=== PATIENT | female | born 1965 | race Caucasian/White ===

== ENCOUNTER → 2018-02-07 00:56 | Outpatient (CLI) | payer MEDICARE, MEDICAID, SELFPAY ==
--- NOTE | 2018-02-07 10:52 | DI.REPORT_ITS ---
SYMPTOMS/DIAGNOSIS: SCREENING, Z12.31 MAMMOGRAM: Mammograms were interpreted according to the usual protocol including computer analysis with CAD system, tomosynthesis and C view imaging. The breasts are of moderate density with fairly symmetrical distribution of fibroglandular tissue. No dominant mass or clumped microcalcification is identified in either breast. Current examination is compared with the previous examinations including March 2016 and there has been no gross interval change in appearance in comparison with the previous studies. CONCLUSION: No specific evidence of malignancy at this time. Routine screening examinations are suggested at yearly intervals in this age group according to the ACS/ACR guidelines. Category 1, breast density category B. MQSA ASSESSMENT OF FINDINGS: Negative. Category 1. Patient will receive a letter notifying them of these results. BI-RADS category B. There are scattered areas of fibroglandular density.
== END ==
PROVIDERS: PCP Internal Medicine; Visit Provider Internal Medicine
DX: Z12.31 Encounter for screening mammogram for malignant neoplasm of breast (principal)
CPT/HCPCS: 77063; 77067

== ENCOUNTER → 2018-02-11 09:49 | Outpatient (CLI) | payer MEDICARE, MEDICAID, SELFPAY ==
--- NOTE | 2018-02-11 09:48 | DI.REPORT_ITS ---
SYMPTOM/DIAGNOSIS: ACUTE PAIN RT SHOULDER M25.511. FELL ON RT SHOULDER, R/O FX RIGHT SCAPULA: No fracture or dislocation is seen. There is spurring at the A-C joint. There are mild glenohumeral joint degenerative changes. IMPRESSION: No acute abnormality.
== END ==
PROVIDERS: PCP Internal Medicine; Visit Provider Family Medicine
DX: M25.511 Pain in right shoulder (principal); M19.011 Primary osteoarthritis, right shoulder; W19.XXXA Unspecified fall, initial encounter
CPT/HCPCS: 73010

== ENCOUNTER 2018-07-25 08:36 | Outpatient (CLI) | payer MEDICARE, MEDICAID, SELFPAY ==
[2018-07-25 09:13] LABS: HCT 42.8 % (36.0-46.0); HGB 13.7 g/dL (12.0-15.5); Mean Corpuscular Hemoglobin 26.3 pg (27.0-33.0); Mean Corpuscular Volume 82.1 fL (80-95); Mean Platelet Volume 11.3 fL (8.0-11.0); Platelet Count 343 x1000/uL (130-400); RBC 5.21 m/cumm (4.00-5.20); White Blood Cell Count 4.64 k/cumm (4.4-10.8)
[2018-07-25 11:14] LABS: ALT 41 U/L (12-78); AST 37 U/L (15-37); Albumin 3.6 g/dL (3.4-5.0); Alkaline Phosphatase 165 U/L (46-116); Anion Gap 8.3 mmol/L (3-11); BUN 13 mg/dL (7-18); Bilirubin, Total 0.9 mg/dL (0.2-1.0); CO2 30.7 mmol/L (21.0-32.0); CREATININE 0.74 mg/dL (0.55-1.02); Calcium 9.3 mg/dL (8.5-10.1); Chloride 103 mmol/L (98-107); Cholesterol 210 mg/dL (50-200); Glucose 105 mg/dL (70-100); HDL Cholesterol 66 mg/dL (40-60); LDL CHOLESTEROL 130 mg/dL (<100); Potassium 4.3 mmol/L (3.5-5.1); Sodium 142 mmol/L (136-145); TSH 2.19 uIU/mL (0.358-3.74); Total Protein 7.7 g/dL (6.4-8.2); Triglyceride 39 mg/dL (30-150)
== END 2018-07-25 08:56 ==
PROVIDERS: PCP Internal Medicine; Visit Provider Internal Medicine
DX: K74.69 Other cirrhosis of liver (principal); R63.5 Abnormal weight gain; E78.00 Pure hypercholesterolemia, unspecified
CPT/HCPCS: 36415; 80053; 80061; 83721; 85027; 84443

== ENCOUNTER 2018-07-28 09:41 | Emergency (ER) | payer MEDICARE, MEDICAID, SELFPAY ==
[2018-07-28 09:45] VITALS: BP 95/54; PULSE 58; RESP 16; TEMP 36.6; O2SAT 97
--- NOTE | 2018-07-28 10:12 | W.ED.GENAD ---
Discharge Plan Disposition Patient Disposition: HOME Condition: Improving Discharge Details Chief Complaint: Laceration Clinical Impression: Laceration of hand, right Primary Care Provider: Kelley Macias ED Provider: Aramis Bosch Home Meds and New Rx's Prescriptions: Continued eeyqushd-ajh-tchhl-[id number] [Sfmgls-Ldijv-NNP (with antiox)] 500-500-66.7 mg tablet PO RF: 0 junaid.stocking,thigh,reg,med misc .ROUTE .MEDSUPPLY Qty: 2 RF: 0 compress.stocking,knee,reg,med misc .ROUTE .MEDSUPPLY Qty: 4 RF: 0 omega-3 fatty acids [Super [place]-3] 1,000 mg capsule 1,000 mg PO BID RF: 0 multivitamin [Daily Multi-Vitamin] 1 EACH tablet 1 ea PO DAILY RF: 0 folic acid 1 MG tablet 1 mg PO DAILY RF: 0 biotin 5 MG tablet 5 mg PO DAILY RF: 0 lysine 1,000 MG tablet 1,000 mg PO DAILY Qty: 90 RF: 3 furosemide 40 MG tablet 40 mg PO DAILY Qty: 90 RF: 1 Dg-Q3-rgb-yunn-bpm-bhec-bor 1 EACH tablet 1 ea PO TID RF: 0 Deana Protect 57 GM cream 1 applic Topical TID PRNQty: 57 RF: 3 Compression Stckings 1 pack Miscellaneous DAILY PRNQty: 2 RF: 3 spironolactone 50 MG tablet 50 mg PO DAILY Qty: 90 RF: 3 ascorbic acid (vitamin C) [Vitamin C] 1,000 MG tablet 1,000 mg PO DAILY Qty: 2 RF: 0 propranolol 10 MG tablet 10 mg PO BID Qty: 180 RF: 3 omeprazole 20 MG capsule,delayed release(DR/EC) 20 mg PO DAILY Qty: 90 RF: 3 coenzyme Q10 [CoQ-10] 100 mg capsule 100 mg PO DAILY RF: 0 aspirin 81 MG tablet,chewable 81 mg PO DAILY RF: 0 Discharge Instructions Instructions: Laceration (ED) Additional Instructions: Sutures removed in 7-10 days time. Return or see your primary care physician. Return if you develop fever, redness, swelling, discharge from the wound or any other acute concerns. Continue your regular medications Medical Decision Making 53-year-old female with right hand laceration at home. No numbness, tingling or weakness. Examined in a bloodless field without evidence of foreign body. Anesthetized, irrigated, repaired with simple interrupted sutures. HPI General Mode of arrival: ambulatory. Date/Time Provider Initiated Documentation: 07/28/18 09:56. Limitations to Documentation: no limitations. Information obtained by: patient. History of Present Illness 53 year old F presents to the emergency department with the chief complaint of Right hand laceration, no numbness or tingling, tetanus up to date, described as moderate, Quality is described as dull and constant, and is localized to the right and upper extremity. Patient reports no radiation. Patient started experiencing this minute(s) and it has been constant. No relieving factors improve symptom(s), No exacerbating factors reported . Patient notes no other symptoms.. Patient did receive the following treatments prior to arrival, none Related Data Home Medications Medication Instructions Recorded Confirmed aspirin 81 mg PO DAILY 11/17/14 07/28/18 biotin 5 mg PO DAILY 09/19/16 07/28/18 folic acid 1 mg PO DAILY tab 09/19/16 07/28/18 furosemide 40 mg PO DAILY #90 tab-cap 09/19/16 07/28/18 lysine 1,000 mg PO DAILY #90 tab 09/19/16 07/28/18 multivitamin [Daily Multi-Vitamin] 1 ea PO DAILY 09/19/16 07/28/18 Vj-N1-vnq-exxv-iwp-ucuc-bor 1 ea PO TID 09/28/16 07/28/18 Deana Protect 1 applic TOPICAL TID PRN #57 gm 12/04/16 07/28/18 spironolactone 50 mg PO DAILY #90 tab-cap 09/21/17 07/28/18 ascorbic acid (vitamin C) [Vitamin 1,000 mg PO DAILY #2 09/25/17 07/28/18 C] omeprazole 20 mg PO DAILY #90 tab-cap 01/07/18 07/28/18 propranolol 10 mg PO BID #180 tab 01/07/18 07/28/18 ujgxpqucger-bra-ztbnauncb-hrb tab PO tab 03/25/18 07/23/18 149-hyalur 500 mg-500 mg-66.7 mg tablet coenzyme Q10 100 mg capsule 100 mg PO DAILY 04/08/18 07/28/18 compression stocking, knee #4 each 07/10/18 07/23/18 high,regular length,medium compression stocking,thigh #2 each 07/10/18 07/23/18 high,regular length,medium circumference omega-3 fatty acids 1,000 mg 1,000 mg PO BID cap 07/23/18 07/28/18 capsule Previous Rx's Medication Instructions Recorded spironolactone 50 mg PO DAILY #90 tab-cap 09/21/17 omeprazole 20 mg PO DAILY #90 tab-cap 01/07/18 propranolol 10 mg PO BID #180 tab 01/07/18 compression stocking, knee #4 each 07/10/18 high,regular length,medium compression stocking,thigh #2 each 07/10/18 high,regular length,medium circumference Allergies Allergy/AdvReac Type Severity Reaction Status Date / Time ciprofloxacin Allergy Intermediate Itching Verified 07/28/18 09:52 General Stated Complaint: Laceration KILLIAN: 4 Review of Systems Review of Systems 6 systems reviewed and otherwise - [facility] Surgical History Colonoscopy - MAC (~08/2013) EGD - IV Sedation (04/19/15) Endoscopy (12/06/12) Tonsillectomy Upper GI endoscopy w/ bx (11/28/16) Family History Mother Leukemia Father Essential hypertension Melanoma Brother Essential hypertension Social History housing: apartment Smoking/Tobacco Use Status: Never alcohol intake: never substance use type: does not use Exam Narrative Exam Narrative: GEN: awake, alert, oriented 3. Pleasant, well groomed, interactive. HEAD: Normocephalic, atraumatic ENT: Mucous membranes moist, oropharynx unremarkable, External ear exam unremarkable EXT: Full ROM, no edema, no rash. Dorsum of right hand with lateral superficial laceration that does penetrate into the subcutaneous fat, no exposed bone or ligament. Distal sensation is normal, range of motion intact with motor graded 5 out of Neuro: Grossly normal neurologic exam, conversant, interactive. Psych: Speech fluent, thoughts congruent, affect normal Course Vital Signs Temperature 36.6 C 07/28/18 09:45 Pulse 58 L 07/28/18 09:45 Respiratory Rate 16 07/28/18 09:45 Blood Pressure 95/54 L 07/28/18 09:45 Pulse Oximetry 97 07/28/18 09:45 Temperature 36.6 C 07/28/18 09:45 Temperature Source Skin 07/28/18 09:45 Pulse 58 L 07/28/18 09:45 Respiratory Rate 16 07/28/18 09:45 Respiratory Effort 07/28/18 09:55 Blood Pressure 95/54 L 07/28/18 09:45 Blood Pressure Position Sitting 07/28/18 09:45 Pulse Oximetry 97 07/28/18 09:45 Oxygen Delivery Method Room Air 07/28/18 09:45 Oxygen Flow Rate 0 07/28/18 09:45 Pain Level 0 07/28/18 09:45 Procedures Laceration Laceration 1: Site: upper extremity and hand Side (If applicable): right Size (cm): 4 Description: linear Depth: simple, single layer Local Anesthetic: Lidocaine 1% Amount of anesthesia used (mL): 2 Pre-repair: wound explored, irrigated extensively and deep structures intact Skin layer closed with: nylon Size (cm): 4-0 Number of sutures: 5 Technique: simple, interrupted
--- NOTE | 2018-07-28 10:16 | ED.GENADUL_ITS ---
Discharge Plan Disposition Patient Disposition: HOME Condition: Improving Discharge Details Chief Complaint: Laceration Clinical Impression: Laceration of hand, right Primary Care Provider: Kelley Macias ED Provider: Aramis Bosch Home Meds and New Rx's Prescriptions: Continued ulrggyqm-fce-rjvsl-wbr757-sulw [Sjtcop-Zqulh-WXW (with antiox)] 500-500-66.7 mg tablet PO RF: 0 junaid.stocking,thigh,reg,med misc .ROUTE .MEDSUPPLY Qty: 2 RF: 0 compress.stocking,knee,reg,med misc .ROUTE .MEDSUPPLY Qty: 4 RF: 0 omega-3 fatty acids [Super [place]-3] 1,000 mg capsule 1,000 mg PO BID RF: 0 multivitamin [Daily Multi-Vitamin] 1 EACH tablet 1 ea PO DAILY RF: 0 folic acid 1 MG tablet 1 mg PO DAILY RF: 0 biotin 5 MG tablet 5 mg PO DAILY RF: 0 lysine 1,000 MG tablet 1,000 mg PO DAILY Qty: 90 RF: 3 furosemide 40 MG tablet 40 mg PO DAILY Qty: 90 RF: 1 Rs-E4-qar-vdku-tzn-vjtk-bor 1 EACH tablet 1 ea PO TID RF: 0 Deana Protect 57 GM cream 1 applic Topical TID PRNQty: 57 RF: 3 Compression Stckings 1 pack Miscellaneous DAILY PRNQty: 2 RF: 3 spironolactone 50 MG tablet 50 mg PO DAILY Qty: 90 RF: 3 ascorbic acid (vitamin C) [Vitamin C] 1,000 MG tablet 1,000 mg PO DAILY Qty: 2 RF: 0 propranolol 10 MG tablet 10 mg PO BID Qty: 180 RF: 3 omeprazole 20 MG capsule,delayed release(DR/EC) 20 mg PO DAILY Qty: 90 RF: 3 coenzyme Q10 [CoQ-10] 100 mg capsule 100 mg PO DAILY RF: 0 aspirin 81 MG tablet,chewable 81 mg PO DAILY RF: 0 Discharge Instructions Instructions: Laceration (ED) Additional Instructions: Sutures removed in 7-10 days time. Return or see your primary care physician. Return if you develop fever, redness, swelling, discharge from the wound or any other acute concerns. Continue your regular medications Medical Decision Making 53-year-old female with right hand laceration at home. No numbness, tingling or weakness. Examined in a bloodless field without evidence of foreign body. Anesthetized, irrigated, repaired with simple interrupted sutures. HPI General Mode of arrival: ambulatory . Date/Time Provider Initiated Documentation: 07/28/18 09:56 . Limitations to Documentation: no limitations . Information obtained by: patient . History of Present Illness 53 year old F presents to the emergency department with the chief complaint of Right hand laceration, no numbness or tingling, tetanus up to date, described as moderate, Quality is described as dull and constant, and is localized to the right and upper extremity. Patient reports no radiation. Patient started experiencing this minute(s) and it has been constant. No relieving factors improve symptom(s), No exacerbating factors reported . Patient notes no other symptoms.. Patient did receive the following treatments prior to arrival, none Related Data Home Medications Medication Instructions Recorded Confirmed aspirin 81 mg PO DAILY 11/17/14 07/28/18 biotin 5 mg PO DAILY 09/19/16 07/28/18 folic acid 1 mg PO DAILY tab 09/19/16 07/28/18 furosemide 40 mg PO DAILY #90 tab-cap 09/19/16 07/28/18 lysine 1,000 mg PO DAILY #90 tab 09/19/16 07/28/18 multivitamin [Daily Multi-Vitamin] 1 ea PO DAILY 09/19/16 07/28/18 Ne-F1-fwu-yowm-qys-fajt-bor 1 ea PO TID 09/28/16 07/28/18 Deana Protect 1 applic TOPICAL TID PRN #57 gm 12/04/16 07/28/18 spironolactone 50 mg PO DAILY #90 tab-cap 09/21/17 07/28/18 ascorbic acid (vitamin C) [Vitamin 1,000 mg PO DAILY #2 09/25/17 07/28/18 C] omeprazole 20 mg PO DAILY #90 tab-cap 01/07/18 07/28/18 propranolol 10 mg PO BID #180 tab 01/07/18 07/28/18 qgmunziqygl-chk-giyfjyyls-hrb tab PO tab 03/25/18 07/23/18 149-hyalur 500 mg-500 mg-66.7 mg tablet coenzyme Q10 100 mg capsule 100 mg PO DAILY 04/08/18 07/28/18 compression stocking, knee #4 each 07/10/18 07/23/18 high,regular length,medium compression stocking,thigh #2 each 07/10/18 07/23/18 high,regular length,medium circumference omega-3 fatty acids 1,000 mg 1,000 mg PO BID cap 07/23/18 07/28/18 capsule Previous Rx's Medication Instructions Recorded spironolactone 50 mg PO DAILY #90 tab-cap 09/21/17 omeprazole 20 mg PO DAILY #90 tab-cap 01/07/18 propranolol 10 mg PO BID #180 tab 01/07/18 compression stocking, knee #4 each 07/10/18 high,regular length,medium compression stocking,thigh #2 each 07/10/18 high,regular length,medium circumference Allergies Allergy/AdvReac Type Severity Reaction Status Date / Time ciprofloxacin Allergy Intermediate Itching Verified 07/28/18 09:52 General Stated Complaint: Laceration KILLIAN: 4 Review of Systems Review of Systems 6 systems reviewed and otherwise - [facility] Surgical History Colonoscopy - MAC (~08/2013) EGD - IV Sedation (04/19/15) Endoscopy (12/06/12) Tonsillectomy Upper GI endoscopy w/ bx (11/28/16) Family History Mother Leukemia Father Essential hypertension Melanoma Brother Essential hypertension Social History housing: apartment Smoking/Tobacco Use Status: Never alcohol intake: never substance use type: does not use Exam Narrative Exam Narrative: GEN: awake, alert, oriented 3. Pleasant, well groomed, interactive. HEAD: Normocephalic, atraumatic ENT: Mucous membranes moist, oropharynx unremarkable, External ear exam unremarkable EXT: Full ROM, no edema, no rash. Dorsum of right hand with lateral superficial laceration that does penetrate into the subcutaneous fat, no exposed bone or ligament. Distal sensation is normal, range of motion intact with motor graded 5 out of Neuro: Grossly normal neurologic exam, conversant, interactive. Psych: Speech fluent, thoughts congruent, affect normal Course Vital Signs Temperature 36.6 C 07/28/18 09:45 Pulse 58 L 07/28/18 09:45 Respiratory Rate 16 07/28/18 09:45 Blood Pressure 95/54 L 07/28/18 09:45 Pulse Oximetry 97 07/28/18 09:45 Temperature 36.6 C 07/28/18 09:45 Temperature Source Skin 07/28/18 09:45 Pulse 58 L 07/28/18 09:45 Respiratory Rate 16 07/28/18 09:45 Respiratory Effort 07/28/18 09:55 Blood Pressure 95/54 L 07/28/18 09:45 Blood Pressure Position Sitting 07/28/18 09:45 Pulse Oximetry 97 07/28/18 09:45 Oxygen Delivery Method Room Air 07/28/18 09:45 Oxygen Flow Rate 0 07/28/18 09:45 Pain Level 0 07/28/18 09:45 Procedures Laceration Laceration 1: Site: upper extremity and hand Side (If applicable): right Size (cm): 4 Description: linear Depth: simple, single layer Local Anesthetic: Lidocaine 1% Amount of anesthesia used (mL): 2 Pre-repair: wound explored, irrigated extensively and deep structures intact Skin layer closed with: nylon Size (cm): 4-0 Number of sutures: 5 Technique: simple, interrupted
[2018-07-28 10:26] VITALS: BP 95/54; PULSE 58; RESP 16; TEMP 36.6; O2SAT 97
--- NOTE | 2018-07-28 10:27 | NUR.NOTE ---
er doctor in and placed 5 sutures in right hand pt up in rm talking and walking around pms X 4 and good cap refill in right fingers Nursing Note:
== END 2018-07-28 10:25 | disposition home or self-care (01) ==
PROVIDERS: Emergency Provider Emergency Medicine; PCP Internal Medicine
DX: S61.411A Laceration without foreign body of right hand, initial encounter (principal); W22.8XXA Striking against or struck by other objects, initial encounter
CPT/HCPCS: 12002

== ENCOUNTER 2018-08-08 15:21 | Emergency (ER) | payer MEDICARE, MEDICAID, SELFPAY ==
[2018-08-08 15:25] VITALS: BP 128/48; PULSE 72; RESP 16; TEMP 36.3; O2SAT 95
--- NOTE | 2018-08-08 15:43 | W.ED.GENAD ---
Discharge Plan Disposition Patient Disposition: HOME Condition: Good Discharge Details Chief Complaint: SutureRem Clinical Impression: Suture check Primary Care Provider: Kelley Macias ED Provider: Davis Araujo Home Meds and New Rx's Prescriptions: No Action ghffenqu-sra-vumbw-pph573-guvn [Fmmoaf-Uoprl-RVL (with antiox)] 500-500-66.7 mg tablet PO RF: 0 junaid.stocking,thigh,reg,med misc .ROUTE .MEDSUPPLY Qty: 2 RF: 0 compress.stocking,knee,reg,med misc .ROUTE .MEDSUPPLY Qty: 4 RF: 0 omega-3 fatty acids [Super [place]-3] 1,000 mg capsule 1,000 mg PO BID RF: 0 multivitamin [Daily Multi-Vitamin] 1 EACH tablet 1 ea PO DAILY RF: 0 folic acid 1 MG tablet 1 mg PO DAILY RF: 0 biotin 5 MG tablet 5 mg PO DAILY RF: 0 lysine 1,000 MG tablet 1,000 mg PO DAILY Qty: 90 RF: 3 furosemide 40 MG tablet 40 mg PO DAILY Qty: 90 RF: 1 Al-C7-jbt-jufo-flj-cboh-bor 1 EACH tablet 1 ea PO TID RF: 0 Deana Protect 57 GM cream 1 applic Topical TID PRNQty: 57 RF: 3 Compression Stckings 1 pack Miscellaneous DAILY PRNQty: 2 RF: 3 spironolactone 50 MG tablet 50 mg PO DAILY Qty: 90 RF: 3 ascorbic acid (vitamin C) [Vitamin C] 1,000 MG tablet 1,000 mg PO DAILY Qty: 2 RF: 0 propranolol 10 MG tablet 10 mg PO BID Qty: 180 RF: 3 omeprazole 20 MG capsule,delayed release(DR/EC) 20 mg PO DAILY Qty: 90 RF: 3 coenzyme Q10 [CoQ-10] 100 mg capsule 100 mg PO DAILY RF: 0 lactulose 10 gram/15 mL solution 20 gm PO BID Qty: 189 RF: 11 aspirin 81 MG tablet,chewable 81 mg PO DAILY RF: 0 Discharge Instructions Instructions: Care For Your Stitches (ED) Additional Instructions: Please return in the next 2-3 days for reevaluation of your sutures for potential removal. Do not directly soak the area. Watch for any signs of infection and return if any increasing redness, swelling, pain, drainage. If you notice any worsening of your symptoms, or any new symptoms such as vomiting, diarrhea, fever, chills, shortness of breath, chest pain, numbness, weakness, or fainting , please return immediately to the emergency department for reevaluation. Please follow up with your primary care provider as soon as possible for reassessment and reevaluation. As always, it was a pleasure participating in your medical care today. Referrals: Kelley Macias MD [Primary Care Provider] - Medical Decision Making This is a very pleasant 53-year-old female who presents today for evaluation of suture removal on her right hand. She got the sutures roughly 10-11 days ago. She has no history of diabetes but does have history of obesity, hypertension. Physical exam demonstrates no signs of dehiscence or infection however the patient does have slight incomplete wound healing. Because of the location of the sutures over the knuckle itself, and concern for removal of the sutures at this time. I do think that they would benefit from 2-3 more days of healing prior to removal. I discussed this with the patient and they understand my hesitation and agree. Patient will be discharged with close follow-up in the next 48-72 hours for potential reevaluation removal of the sutures. I have extensively reviewed the treatment plan and discharge instructions with the patient. I have addressed all patient concerns at this time. The patient was made aware of what symptoms to monitor for that would warrant a return to the emergency department. Discussed the plan with the patient, they demonstrate verbal understanding and agreement with our assessment and plan at this time. HPI General Date/Time Provider Initiated Documentation: 08/08/18 15:22. HPI Narrative: 53-year-old female who presents today for suture removal. Patient suffered a laceration to her right hand at that time. She has been applying bacitracin ointment daily, and has been following discharge instructions. She comes in today for removal of sutures. She denies any discharge, redness, fever, chills, pain, numbness or tingling or weakness. She has no other complaints at this time. Related Data Home Medications Medication Instructions Recorded Confirmed aspirin 81 mg PO DAILY 11/17/14 07/28/18 biotin 5 mg PO DAILY 09/19/16 07/28/18 folic acid 1 mg PO DAILY tab 09/19/16 07/28/18 furosemide 40 mg PO DAILY #90 tab-cap 09/19/16 07/28/18 lysine 1,000 mg PO DAILY #90 tab 09/19/16 07/28/18 multivitamin [Daily Multi-Vitamin] 1 ea PO DAILY 09/19/16 07/28/18 Lr-V0-pkm-gnqt-azi-lipe-bor 1 ea PO TID 09/28/16 07/28/18 Deana Protect 1 applic TOPICAL TID PRN #57 gm 12/04/16 07/28/18 spironolactone 50 mg PO DAILY #90 tab-cap 09/21/17 07/28/18 ascorbic acid (vitamin C) [Vitamin 1,000 mg PO DAILY #2 09/25/17 07/28/18 C] omeprazole 20 mg PO DAILY #90 tab-cap 01/07/18 07/28/18 propranolol 10 mg PO BID #180 tab 01/07/18 07/28/18 lvbbggibjne-prn-birulhjtp-hrb tab PO tab 03/25/18 07/23/18 149-hyalur 500 mg-500 mg-66.7 mg tablet coenzyme Q10 100 mg capsule 100 mg PO DAILY 04/08/18 07/28/18 compression stocking, knee #4 each 07/10/18 07/23/18 high,regular length,medium compression stocking,thigh #2 each 07/10/18 07/23/18 high,regular length,medium circumference omega-3 fatty acids 1,000 mg 1,000 mg PO BID cap 07/23/18 07/28/18 capsule lactulose 10 gram/15 mL oral 20 gm PO BID #1892 ml 07/30/18 solution Previous Rx's Medication Instructions Recorded spironolactone 50 mg PO DAILY #90 tab-cap 09/21/17 omeprazole 20 mg PO DAILY #90 tab-cap 01/07/18 propranolol 10 mg PO BID #180 tab 01/07/18 compression stocking, knee #4 each 07/10/18 high,regular length,medium compression stocking,thigh #2 each 07/10/18 high,regular length,medium circumference lactulose 10 gram/15 mL oral 20 gm PO BID #1892 ml 07/30/18 solution Allergies Allergy/AdvReac Type Severity Reaction Status Date / Time ciprofloxacin Allergy Intermediate Itching Verified 08/08/18 15:31 General Stated Complaint: SutureRem KILLIAN: 5 Review of Systems Review of Systems All systems reviewed & are unremarkable except as noted in HPI and below PFSH Social History housing: apartment what type of physical activity do you participate in: none Smoking and Tabacco status: Never alcohol intake: never substance use type: does not use Exam Narrative Exam Narrative: 1.Const: Well-nourished, Well-developed, appearing stated age 2.Eyes: PERRL, no conjunctival injection, and symmetrical lids. 3.ENT: Atraumatic external nose and ears. Moist MM. Neck: Symmetric, trachea midline, No thyromegaly. 4.CVS: +S1/S2, No murmurs or gallops. Peripheral pulses 2+ and equal in all extremities. Brisk capillary refill in all extremities. 5.RESP: Unlabored respiratory effort. Clear to auscultation bilaterally. No wheezes rales or rhonchi 6.GI: Soft, Nontender/Nondistended, No hepatosplenomegaly. No guarding or rebound. 7.MSK: Normocephalic/Atraumatic, Extremities w/o deformity or ttp No cyanosis or clubbing, Normal movement of all extremities 8.Skin: Warm, Dry. Patient demonstrates evidence of sutures over the medial aspect by the fifth metacarpal phalangeal joint on the right hand. Evaluation demonstrates good wound edge reapproximation, however there appears to be a small amount of 10 solid consistency concerning for incomplete wound healing. No fluctuance or abscess. No redness or drainage. No evidence of dehiscence. 9.Neuro: sterile processing technician II-XII grossly intact. Sensation grossly intact, no focal neurologic deficits. 10.Psych: (AAO) x3. Appropriate mood and affect Course Vital Signs Temperature 36.3 C L 08/08/18 15:25 Pulse 72 08/08/18 15:25 Respiratory Rate 16 08/08/18 15:25 Blood Pressure 128/48 L 08/08/18 15:25 Pulse Oximetry 95 08/08/18 15:25 Temperature 36.3 C L 08/08/18 15:25 Temperature Source Skin 08/08/18 15:25 Pulse 72 08/08/18 15:25 Respiratory Rate 16 08/08/18 15:25 Blood Pressure 128/48 L 08/08/18 15:25 Pulse Oximetry 95 08/08/18 15:25 Oxygen Delivery Method Room Air 08/08/18 15:25 Oxygen Flow Rate 0 08/08/18 15:25 Pain Level 0 08/08/18 15:25
--- NOTE | 2018-08-08 15:46 | ED.GENADUL_ITS ---
Discharge Plan Disposition Patient Disposition: HOME Condition: Good Discharge Details Chief Complaint: SutureRem Clinical Impression: Suture check Primary Care Provider: Kelley Macias ED Provider: Davis Araujo Home Meds and New Rx's Prescriptions: No Action [id number]-cla-osdft-[id number] [Ytnsbo-Isqwh-[place] (with antiox)] 500-500-66.7 mg tablet PO RF: 0 junaid.stocking,thigh,reg,med misc .ROUTE .MEDSUPPLY Qty: 2 RF: 0 compress.stocking,knee,reg,med misc .ROUTE .MEDSUPPLY Qty: 4 RF: 0 omega-3 fatty acids [Super [place]-3] 1,000 mg capsule 1,000 mg PO BID RF: 0 multivitamin [Daily Multi-Vitamin] 1 EACH tablet 1 ea PO DAILY RF: 0 folic acid 1 MG tablet 1 mg PO DAILY RF: 0 biotin 5 MG tablet 5 mg PO DAILY RF: 0 lysine 1,000 MG tablet 1,000 mg PO DAILY Qty: 90 RF: 3 furosemide 40 MG tablet 40 mg PO DAILY Qty: 90 RF: 1 Nr-D9-kpj-hmiy-ptm-cqtj-bor 1 EACH tablet 1 ea PO TID RF: 0 Deana Protect 57 GM cream 1 applic Topical TID PRNQty: 57 RF: 3 Compression Stckings 1 pack Miscellaneous DAILY PRNQty: 2 RF: 3 spironolactone 50 MG tablet 50 mg PO DAILY Qty: 90 RF: 3 ascorbic acid (vitamin C) [Vitamin C] 1,000 MG tablet 1,000 mg PO DAILY Qty: 2 RF: 0 propranolol 10 MG tablet 10 mg PO BID Qty: 180 RF: 3 omeprazole 20 MG capsule,delayed release(DR/EC) 20 mg PO DAILY Qty: 90 RF: 3 coenzyme Q10 [CoQ-10] 100 mg capsule 100 mg PO DAILY RF: 0 lactulose 10 gram/15 mL solution 20 gm PO BID Qty: 189 RF: 11 aspirin 81 MG tablet,chewable 81 mg PO DAILY RF: 0 Discharge Instructions Instructions: Care For Your Stitches (ED) Additional Instructions: Please return in the next 2-3 days for reevaluation of your sutures for potential removal. Do not directly soak the area. Watch for any signs of infection and return if any increasing redness, swelling, pain, drainage. If you notice any worsening of your symptoms, or any new symptoms such as vomiting, diarrhea, fever, chills, shortness of breath, chest pain, numbness, weakness, or fainting , please return immediately to the emergency department for reevaluation. Please follow up with your primary care provider as soon as possible for reassessment and reevaluation. As always, it was a pleasure participating in your medical care today. Referrals: Kelley Macias MD [Primary Care Provider] - Medical Decision Making This is a very pleasant 53-year-old female who presents today for evaluation of suture removal on her right hand. She got the sutures roughly 10- 11 days ago. She has no history of diabetes but does have history of obesity, hypertension. Physical exam demonstrates no signs of dehiscence or infection however the patient does have slight incomplete wound healing. Because of the location of the sutures over the knuckle itself, and concern for removal of the sutures at this time. I do think that they would benefit from 2-3 more days of healing prior to removal. I discussed this with the patient and they understand my hesitation and agree. Patient will be discharged with close follow-up in the next 48-72 hours for potential reevaluation removal of the sutures. I have extensively reviewed the treatment plan and discharge instructions with the patient. I have addressed all patient concerns at this time. The patient was made aware of what symptoms to monitor for that would warrant a return to the emergency department. Discussed the plan with the patient, they demonstrate verbal understanding and agreement with our assessment and plan at this time. HPI General Date/Time Provider Initiated Documentation: 08/08/18 15:22 . HPI Narrative: 53-year-old female who presents today for suture removal. Patient suffered a laceration to her right hand at that time. She has been applying bacitracin ointment daily, and has been following discharge instructions. She comes in today for removal of sutures. She denies any discharge, redness, fever, chills, pain, numbness or tingling or weakness. She has no other complaints at this time. Related Data Home Medications Medication Instructions Recorded Confirmed aspirin 81 mg PO DAILY 11/17/14 07/28/18 biotin 5 mg PO DAILY 09/19/16 07/28/18 folic acid 1 mg PO DAILY tab 09/19/16 07/28/18 furosemide 40 mg PO DAILY #90 tab-cap 09/19/16 07/28/18 lysine 1,000 mg PO DAILY #90 tab 09/19/16 07/28/18 multivitamin [Daily Multi-Vitamin] 1 ea PO DAILY 09/19/16 07/28/18 Nf-T0-zjb-dbjo-enj-pbwh-bor 1 ea PO TID 09/28/16 07/28/18 Deana Protect 1 applic TOPICAL TID PRN #57 gm 12/04/16 07/28/18 spironolactone 50 mg PO DAILY #90 tab-cap 09/21/17 07/28/18 ascorbic acid (vitamin C) [Vitamin 1,000 mg PO DAILY #2 09/25/17 07/28/18 C] omeprazole 20 mg PO DAILY #90 tab-cap 01/07/18 07/28/18 propranolol 10 mg PO BID #180 tab 01/07/18 07/28/18 krrchvigsbs-mzf-kqoqbgaum-hrb tab PO tab 03/25/18 07/23/18 149-hyalur 500 mg-500 mg-66.7 mg tablet coenzyme Q10 100 mg capsule 100 mg PO DAILY 04/08/18 07/28/18 compression stocking, knee #4 each 07/10/18 07/23/18 high,regular length,medium compression stocking,thigh #2 each 07/10/18 07/23/18 high,regular length,medium circumference omega-3 fatty acids 1,000 mg 1,000 mg PO BID cap 07/23/18 07/28/18 capsule lactulose 10 gram/15 mL oral 20 gm PO BID #1892 ml 07/30/18 solution Previous Rx's Medication Instructions Recorded spironolactone 50 mg PO DAILY #90 tab-cap 09/21/17 omeprazole 20 mg PO DAILY #90 tab-cap 01/07/18 propranolol 10 mg PO BID #180 tab 01/07/18 compression stocking, knee #4 each 07/10/18 high,regular length,medium compression stocking,thigh #2 each 07/10/18 high,regular length,medium circumference lactulose 10 gram/15 mL oral 20 gm PO BID #1892 ml 07/30/18 solution Allergies Allergy/AdvReac Type Severity Reaction Status Date / Time ciprofloxacin Allergy Intermediate Itching Verified 08/08/18 15:31 General Stated Complaint: SutureRem KILLIAN: 5 Review of Systems Review of Systems All systems reviewed & are unremarkable except as noted in HPI and below PFSH Social History housing: apartment what type of physical activity do you participate in: none Smoking and Tabacco status: Never alcohol intake: never substance use type: does not use Exam Narrative Exam Narrative: 1.Const: Well-nourished, Well-developed, appearing stated age 2.Eyes: PERRL, no conjunctival injection, and symmetrical lids. 3.ENT: Atraumatic external nose and ears. Moist MM. Neck: Symmetric, trachea midline, No thyromegaly. 4.CVS: +S1/S2, No murmurs or gallops. Peripheral pulses 2+ and equal in all extremities. Brisk capillary refill in all extremities. 5.RESP: Unlabored respiratory effort. Clear to auscultation bilaterally. No wheezes rales or rhonchi 6.GI: Soft, Nontender/Nondistended, No hepatosplenomegaly. No guarding or rebound. 7.MSK: Normocephalic/Atraumatic, Extremities w/o deformity or ttp No cyanosis or clubbing, Normal movement of all extremities 8.Skin: Warm, Dry. Patient demonstrates evidence of sutures over the medial aspect by the fifth metacarpal phalangeal joint on the right hand. Evaluation demonstrates good wound edge reapproximation, however there appears to be a small amount of 10 solid consistency concerning for incomplete wound healing. No fluctuance or abscess. No redness or drainage. No evidence of dehiscence. 9.Neuro: cell tuber hand II-XII grossly intact. Sensation grossly intact, no focal neurologic deficits. 10.Psych: (AAO) x3. Appropriate mood and affect Course Vital Signs Temperature 36.3 C L 08/08/18 15:25 Pulse 72 08/08/18 15:25 Respiratory Rate 16 08/08/18 15:25 Blood Pressure 128/48 L 08/08/18 15:25 Pulse Oximetry 95 08/08/18 15:25 Temperature 36.3 C L 08/08/18 15:25 Temperature Source Skin 08/08/18 15:25 Pulse 72 08/08/18 15:25 Respiratory Rate 16 08/08/18 15:25 Blood Pressure 128/48 L 08/08/18 15:25 Pulse Oximetry 95 08/08/18 15:25 Oxygen Delivery Method Room Air 08/08/18 15:25 Oxygen Flow Rate 0 08/08/18 15:25 Pain Level 0 08/08/18 15:25
== END 2018-08-08 15:33 | disposition home or self-care (01) ==
LOC: ER 15:32
PROVIDERS: Emergency Provider Student in an Organized Health Care Education/Training Program; PCP Internal Medicine
DX: S61.411D Laceration without foreign body of right hand, subsequent encounter (principal); W22.8XXD Striking against or struck by other objects, subsequent encounter; I10 Essential (primary) hypertension; Z48.02 Encounter for removal of sutures

== ENCOUNTER 2018-08-10 13:12 | Emergency (ER) | payer MEDICARE, MEDICAID, SELFPAY ==
[2018-08-10 13:32] VITALS: BP 118/76; PULSE 63; RESP 16; TEMP 36.2; O2SAT 97
--- NOTE | 2018-08-10 14:12 | W.ED.GENAD ---
Discharge Plan Disposition Patient Disposition: HOME Discharge Details Chief Complaint: SutureRem Clinical Impression: Encounter for removal of sutures Primary Care Provider: Kelley Macias ED Provider: Yasir Hyde Home Meds and New Rx's Prescriptions: No Action [id number] [Yplaiw-Wfvtl-LUT (with antiox)] 500-500-66.7 mg tablet PO RF: 0 junaid.stocking,thigh,reg,med misc .ROUTE .MEDSUPPLY Qty: 2 RF: 0 compress.stocking,knee,reg,med misc .ROUTE .MEDSUPPLY Qty: 4 RF: 0 omega-3 fatty acids [Super [place]-3] 1,000 mg capsule 1,000 mg PO BID RF: 0 multivitamin [Daily Multi-Vitamin] 1 EACH tablet 1 ea PO DAILY RF: 0 folic acid 1 MG tablet 1 mg PO DAILY RF: 0 biotin 5 MG tablet 5 mg PO DAILY RF: 0 lysine 1,000 MG tablet 1,000 mg PO DAILY Qty: 90 RF: 3 furosemide 40 MG tablet 40 mg PO DAILY Qty: 90 RF: 1 Kh-Z2-oye-fzkj-zbx-keci-bor 1 EACH tablet 1 ea PO TID RF: 0 Deana Protect 57 GM cream 1 applic Topical TID PRNQty: 57 RF: 3 Compression Stckings 1 pack Miscellaneous DAILY PRNQty: 2 RF: 3 spironolactone 50 MG tablet 50 mg PO DAILY Qty: 90 RF: 3 ascorbic acid (vitamin C) [Vitamin C] 1,000 MG tablet 1,000 mg PO DAILY Qty: 2 RF: 0 propranolol 10 MG tablet 10 mg PO BID Qty: 180 RF: 3 omeprazole 20 MG capsule,delayed release(DR/EC) 20 mg PO DAILY Qty: 90 RF: 3 coenzyme Q10 [CoQ-10] 100 mg capsule 100 mg PO DAILY RF: 0 lactulose 10 gram/15 mL solution 20 gm PO BID Qty: 189 RF: 11 aspirin 81 MG tablet,chewable 81 mg PO DAILY RF: 0 Discharge Instructions Instructions: Stitches Removal (ED) Additional Instructions: Please keep wound protected. Please contact your primary care physician to arrange follow-up. Return to the ER for any worsening or new concerning symptoms. Referrals: Kelley Macias MD [Primary Care Provider] - Discharge Data Discharge Date/Time-TO BE ENTERED AT DEPARTURE: 08/10/18 14:19 Medical Decision Making 21:38 --53-year-old female here with healing laceration right hand with no signs of infection. Sutures removed by me without complication. Usual customary discharge instructions were provided. HPI General Mode of arrival: ambulatory. Date/Time Provider Initiated Documentation: 08/10/18 13:54. Limitations to Documentation: no limitations. Information obtained by: patient. HPI Narrative: Patient here for suture removal. She notes no signs of infection. Healing well. Related Data Home Medications Medication Instructions Recorded Confirmed aspirin 81 mg PO DAILY 11/17/14 07/28/18 biotin 5 mg PO DAILY 09/19/16 07/28/18 folic acid 1 mg PO DAILY tab 09/19/16 07/28/18 furosemide 40 mg PO DAILY #90 tab-cap 09/19/16 07/28/18 lysine 1,000 mg PO DAILY #90 tab 09/19/16 07/28/18 multivitamin [Daily Multi-Vitamin] 1 ea PO DAILY 09/19/16 07/28/18 Ri-D5-uhl-txkl-nkl-yfro-bor 1 ea PO TID 09/28/16 07/28/18 Deana Protect 1 applic TOPICAL TID PRN #57 gm 12/04/16 07/28/18 spironolactone 50 mg PO DAILY #90 tab-cap 09/21/17 07/28/18 ascorbic acid (vitamin C) [Vitamin 1,000 mg PO DAILY #2 09/25/17 07/28/18 C] omeprazole 20 mg PO DAILY #90 tab-cap 01/07/18 07/28/18 propranolol 10 mg PO BID #180 tab 01/07/18 07/28/18 koufgfhwyrz-inf-inpkwylmx-hrb tab PO tab 03/25/18 07/23/18 149-hyalur 500 mg-500 mg-66.7 mg tablet coenzyme Q10 100 mg capsule 100 mg PO DAILY 04/08/18 07/28/18 compression stocking, knee #4 each 07/10/18 07/23/18 high,regular length,medium compression stocking,thigh #2 each 07/10/18 07/23/18 high,regular length,medium circumference omega-3 fatty acids 1,000 mg 1,000 mg PO BID cap 07/23/18 07/28/18 capsule lactulose 10 gram/15 mL oral 20 gm PO BID #1892 ml 07/30/18 solution Previous Rx's Medication Instructions Recorded spironolactone 50 mg PO DAILY #90 tab-cap 09/21/17 omeprazole 20 mg PO DAILY #90 tab-cap 01/07/18 propranolol 10 mg PO BID #180 tab 01/07/18 compression stocking, knee #4 each 07/10/18 high,regular length,medium compression stocking,thigh #2 each 07/10/18 high,regular length,medium circumference lactulose 10 gram/15 mL oral 20 gm PO BID #1892 ml 07/30/18 solution Allergies Allergy/AdvReac Type Severity Reaction Status Date / Time ciprofloxacin Allergy Intermediate Itching Verified 08/10/18 13:32 General Stated Complaint: SutureRem KILLIAN: 5 Review of Systems Integumentary/Breasts Reports as per HPI [facility] Surgical History Colonoscopy - MAC (~08/2013) EGD - IV Sedation (04/19/15) Endoscopy (12/06/12) Tonsillectomy Upper GI endoscopy w/ bx (11/28/16) Family History Mother Leukemia Father Essential hypertension Melanoma Brother Essential hypertension Social History housing: apartment what type of physical activity do you participate in: none Smoking and Tabacco status: Never alcohol intake: never substance use type: does not use Exam Skin Other: Right hand with 5 intact simple interrupted sutures without any signs of infection Course Vital Signs Temperature 36.2 C L 08/10/18 13:32 Pulse 63 08/10/18 13:32 Respiratory Rate 16 08/10/18 13:32 Blood Pressure 118/76 08/10/18 13:32 Pulse Oximetry 97 08/10/18 13:32 Temperature 36.2 C L 08/10/18 13:32 Temperature Source Temporal Artery Scan 08/10/18 13:32 Pulse 63 08/10/18 13:32 Respiratory Rate 16 08/10/18 13:32 Respiratory Effort 08/10/18 13:32 Blood Pressure 118/76 08/10/18 13:32 Blood Pressure Position Sitting 08/10/18 13:32 Pulse Oximetry 97 08/10/18 13:32 Oxygen Delivery Method Room Air 08/10/18 13:32 Oxygen Flow Rate 0 08/10/18 13:32 Pain Level 0 08/10/18 13:32
--- NOTE | 2018-08-11 21:39 | ED.GENADUL_ITS ---
Discharge Plan Disposition Patient Disposition: HOME Discharge Details Chief Complaint: SutureRem Clinical Impression: Encounter for removal of sutures Primary Care Provider: Kelley Macias ED Provider: Yasir Hyde Home Meds and New Rx's Prescriptions: No Action [id number]-iys-[id number] [Ectisw-[place]-IHD (with antiox)] 500-500-66.7 mg tablet PO RF: 0 junaid.stocking,thigh,reg,med misc .ROUTE .MEDSUPPLY Qty: 2 RF: 0 compress.stocking,knee,reg,med misc .ROUTE .MEDSUPPLY Qty: 4 RF: 0 omega-3 fatty acids [Super [place]-3] 1,000 mg capsule 1,000 mg PO BID RF: 0 multivitamin [Daily Multi-Vitamin] 1 EACH tablet 1 ea PO DAILY RF: 0 folic acid 1 MG tablet 1 mg PO DAILY RF: 0 biotin 5 MG tablet 5 mg PO DAILY RF: 0 lysine 1,000 MG tablet 1,000 mg PO DAILY Qty: 90 RF: 3 furosemide 40 MG tablet 40 mg PO DAILY Qty: 90 RF: 1 Wm-K5-unh-gjlm-vqu-pppj-bor 1 EACH tablet 1 ea PO TID RF: 0 Deana Protect 57 GM cream 1 applic Topical TID PRNQty: 57 RF: 3 Compression Stckings 1 pack Miscellaneous DAILY PRNQty: 2 RF: 3 spironolactone 50 MG tablet 50 mg PO DAILY Qty: 90 RF: 3 ascorbic acid (vitamin C) [Vitamin C] 1,000 MG tablet 1,000 mg PO DAILY Qty: 2 RF: 0 propranolol 10 MG tablet 10 mg PO BID Qty: 180 RF: 3 omeprazole 20 MG capsule,delayed release(DR/EC) 20 mg PO DAILY Qty: 90 RF: 3 coenzyme Q10 [CoQ-10] 100 mg capsule 100 mg PO DAILY RF: 0 lactulose 10 gram/15 mL solution 20 gm PO BID Qty: 189 RF: 11 aspirin 81 MG tablet,chewable 81 mg PO DAILY RF: 0 Discharge Instructions Instructions: Stitches Removal (ED) Additional Instructions: Please keep wound protected. Please contact your primary care physician to arrange follow-up. Return to the ER for any worsening or new concerning symptoms. Referrals: Kelley Macias MD [Primary Care Provider] - Discharge Data Discharge Date/Time-TO BE ENTERED AT DEPARTURE: 08/10/18 14:19 Medical Decision Making 21:38 --53-year-old female here with healing laceration right hand with no signs of infection. Sutures removed by me without complication. Usual customary discharge instructions were provided. HPI General Mode of arrival: ambulatory . Date/Time Provider Initiated Documentation: 08/10/18 13:54 . Limitations to Documentation: no limitations . Information obtained by: patient . HPI Narrative: Patient here for suture removal. She notes no signs of infection. Healing well. Related Data Home Medications Medication Instructions Recorded Confirmed aspirin 81 mg PO DAILY 11/17/14 07/28/18 biotin 5 mg PO DAILY 09/19/16 07/28/18 folic acid 1 mg PO DAILY tab 09/19/16 07/28/18 furosemide 40 mg PO DAILY #90 tab-cap 09/19/16 07/28/18 lysine 1,000 mg PO DAILY #90 tab 09/19/16 07/28/18 multivitamin [Daily Multi-Vitamin] 1 ea PO DAILY 09/19/16 07/28/18 Rw-I5-qva-ayed-oit-rkxk-bor 1 ea PO TID 09/28/16 07/28/18 Deana Protect 1 applic TOPICAL TID PRN #57 gm 12/04/16 07/28/18 spironolactone 50 mg PO DAILY #90 tab-cap 09/21/17 07/28/18 ascorbic acid (vitamin C) [Vitamin 1,000 mg PO DAILY #2 09/25/17 07/28/18 C] omeprazole 20 mg PO DAILY #90 tab-cap 01/07/18 07/28/18 propranolol 10 mg PO BID #180 tab 01/07/18 07/28/18 ocqraxbyiqs-hrd-pdfxzngby-hrb tab PO tab 03/25/18 07/23/18 149-hyalur 500 mg-500 mg-66.7 mg tablet coenzyme Q10 100 mg capsule 100 mg PO DAILY 04/08/18 07/28/18 compression stocking, knee #4 each 07/10/18 07/23/18 high,regular length,medium compression stocking,thigh #2 each 07/10/18 07/23/18 high,regular length,medium circumference omega-3 fatty acids 1,000 mg 1,000 mg PO BID cap 07/23/18 07/28/18 capsule lactulose 10 gram/15 mL oral 20 gm PO BID #1892 ml 07/30/18 solution Previous Rx's Medication Instructions Recorded spironolactone 50 mg PO DAILY #90 tab-cap 09/21/17 omeprazole 20 mg PO DAILY #90 tab-cap 01/07/18 propranolol 10 mg PO BID #180 tab 01/07/18 compression stocking, knee #4 each 07/10/18 high,regular length,medium compression stocking,thigh #2 each 07/10/18 high,regular length,medium circumference lactulose 10 gram/15 mL oral 20 gm PO BID #1892 ml 07/30/18 solution Allergies Allergy/AdvReac Type Severity Reaction Status Date / Time ciprofloxacin Allergy Intermediate Itching Verified 08/10/18 13:32 General Stated Complaint: SutureRem KILLIAN: 5 Review of Systems Integumentary/Breasts Reports as per HPI [facility] Surgical History Colonoscopy - MAC (~08/2013) EGD - IV Sedation (04/19/15) Endoscopy (12/06/12) Tonsillectomy Upper GI endoscopy w/ bx (11/28/16) Family History Mother Leukemia Father Essential hypertension Melanoma Brother Essential hypertension Social History housing: apartment what type of physical activity do you participate in: none Smoking and Tabacco status: Never alcohol intake: never substance use type: does not use Exam Skin Other: Right hand with 5 intact simple interrupted sutures without any signs of infection Course Vital Signs Temperature 36.2 C L 08/10/18 13:32 Pulse 63 08/10/18 13:32 Respiratory Rate 16 08/10/18 13:32 Blood Pressure 118/76 08/10/18 13:32 Pulse Oximetry 97 08/10/18 13:32 Temperature 36.2 C L 08/10/18 13:32 Temperature Source Temporal Artery Scan 08/10/18 13:32 Pulse 63 08/10/18 13:32 Respiratory Rate 16 08/10/18 13:32 Respiratory Effort 08/10/18 13:32 Blood Pressure 118/76 08/10/18 13:32 Blood Pressure Position Sitting 08/10/18 13:32 Pulse Oximetry 97 08/10/18 13:32 Oxygen Delivery Method Room Air 08/10/18 13:32 Oxygen Flow Rate 0 08/10/18 13:32 Pain Level 0 08/10/18 13:32
== END 2018-08-10 14:19 | disposition home or self-care (01) ==
PROVIDERS: Emergency Provider Student in an Organized Health Care Education/Training Program; PCP Internal Medicine
DX: S61.411D Laceration without foreign body of right hand, subsequent encounter (principal); W22.8XXD Striking against or struck by other objects, subsequent encounter; Z48.02 Encounter for removal of sutures

== ENCOUNTER 2019-01-22 08:42 | Outpatient (CLI) | payer MEDICARE, MEDICAID, SELFPAY ==
--- NOTE | 2019-01-22 08:05 | DI.CT_ITS ---
SYMPTOMS/DIAGNOSIS: HEMATURIA, ? KIDNEY STONE, R31.[address]: The study was carried out according to the usual protocol without contrast enhancement. The liver is unremarkable. A solitary gallstone is noted in the gallbladder. There is no evidence of biliary dilatation. The pancreas appears intact. There is considerable enlargement of the spleen. A solitary calcification is noted in the posterior spleen likely related to old healed granulomatous disease. There is a rounded density adjacent to the anterior spleen lying just below the splenic hilus and tail of the pancreas which may represent a splenule. There is no evidence of bowel obstruction. There is questionable thickening of the rectal wall and a question regarding regarding thickening of the wall of the ascending and proximal transverse colon. The study is limited by the absence of contrast material. Increased density is noted in the mesenteric fat. There is evidence of mesenteric and retroperitoneal adenopathy. As visualized the bladder appears intact. The reproductive organs appear intact. A small fat containing umbilical hernia is demonstrated. There is no evidence of an aortic aneurysm. There is no demonstrated bony abnormality. SUMMARY: The examination is limited due to the absence of contrast material and reveals no evidence of pathology. There is increased density in the mesenteric fat and evidence of mesenteric and retroperitoneal adenopathy and splenomegaly is identified. There is questionable thickening of the rectal wall and a question regarding wall thickening involving the ascending colon. Cholelithiasis is demonstrated. Follow up evaluation of this patient with a with oral and intravenous contrast enhanced study is suggested in this patient with findings certainly suspicious for a malignancy.
== END 2019-01-22 09:02 ==
PROVIDERS: PCP Internal Medicine; Visit Provider Family Medicine
DX: R31.9 Hematuria, unspecified (principal); R16.1 Splenomegaly, not elsewhere classified; R59.0 Localized enlarged lymph nodes; K42.9 Umbilical hernia without obstruction or gangrene; K63.89 Other specified diseases of intestine; K80.20 Calculus of gallbladder without cholecystitis without obstruction
CPT/HCPCS: 74176

== ENCOUNTER 2019-02-01 10:03 | Outpatient (CLI) | payer MEDICARE, MEDICAID, SELFPAY ==
[2019-02-01 11:47] LABS: CREATININE 0.77 mg/dL (0.55-1.02)
== END 2019-02-01 10:23 ==
PROVIDERS: PCP Internal Medicine; Visit Provider Internal Medicine
DX: R93.3 Abnormal findings on diagnostic imaging of other parts of digestive tract (principal); R31.9 Hematuria, unspecified; R07.82 Intercostal pain; K74.69 Other cirrhosis of liver; Z91.89 Other specified personal risk factors, not elsewhere classified
CPT/HCPCS: 36415; 82565

== ENCOUNTER 2019-02-04 06:58 | Outpatient (CLI) | payer MEDICARE, MEDICAID, SELFPAY ==
[2019-02-04] MEDS: Omnipaque 350 MG/ML 100 ML BTL IJ (09:33)
--- NOTE | 2019-02-04 09:50 | DI.CT_ITS ---
SYMPTOM/DIAGNOSIS: MESENTERIC ADENOPATHY R93.3, R19.8, R59.[address]: 02/04 CT examination of the abdomen and pelvis was performed with a bolus infusion of 100 cc Omnipaque 350 and ingestion of dilute Barium. Images obtained through the lung bases are unremarkable. There is heterogeneous hepatic attenuation and there is question of a slightly nodular contour of the liver raising the possibility of cirrhosis. Spleen is markedly enlarged and contains a few calcifications. There is mild abdominal ascites and mesenteric edema. There are numerous apparent enlarged tortuous veins in the upper abdomen raising the possibility of portal venous hypertension. Portal vein is poorly opacified which may be due to flow phenomenon, portal thrombus not excluded on the basis of this examination. There is moderate ascites and edema of the mesentery. Mild mesenteric santino prominence noted. Retroperitoneal and retrocrural notal prominence also seen with the largest retroperitoneal nodes measuring up to about 2.5 cm in diameter. The findings are nonspecific. Adrenals and kidneys appear normal. No evidence of urinary tract obstruction or calcification. Abdominal aorta is of normal diameter and no major vascular abnormality is seen. No significant abdominal wall hernia seen. No evidence of bowel obstruction, There appears to be wall thickening throughout the colon particularly involving ascending colon. This is a nonspecific finding but may represent inflammatory or infectious process. Colonoscopic correlation may be obtained if clinically indicated. Mild small bowel wall edema noted throughout as well which is a nonspecific finding. No small bowel obstruction or focal lesion. Pancreas grossly unremarkable in appearance. CONCLUSION: 1. Hepatic cirrhosis and marked splenomegaly with portal venous hypertension, the patient reportedly has a history of cirrhosis. Portal thrombus not excluded. 2. Cholelithiasis 3. No biliary dilatation 4. Retroperitoneal and mesenteric santino prominence, nonspecific 5. Colon wall thickening, nonspecific, consider inflammatory or infectious cause. Correlation with colonoscopy recommended.
[2019-02-04] MEDS: Breeza Beverage 473 ML BTL PO (09:52)
[2019-02-04] MEDS: Omnipaque 350 MG/ML 50 ML BTL IJ (09:52)
== END 2019-02-04 07:18 ==
PROVIDERS: PCP Internal Medicine; Referring Provider Nurse Practitioner Adult Health; Visit Provider Internal Medicine
DX: K74.60 Unspecified cirrhosis of liver (principal); R16.1 Splenomegaly, not elsewhere classified; K76.6 Portal hypertension; K80.20 Calculus of gallbladder without cholecystitis without obstruction
CPT/HCPCS: 74177; 82565; J3490; Q9967

== ENCOUNTER 2019-07-10 00:54 | Outpatient (CLI) | payer MEDICARE, SELFPAY ==
--- NOTE | 2019-07-10 15:31 | DI.MAMMO_ITS ---
EXAM: MG MAMMO SCREENING CLINICAL HISTORY: screening, Z12.39. TECHNIQUE: Full field digital CC and MLO mammographic images were obtained with 3D tomosynthesis and utilizing computer aided detection (CAD). COMPARISON: . 2011 to 2017 FINDINGS: Breast Density - Category B - Scattered areas of fibroglandular density Masses/Architectural Distortion: None seen. Microcalcifications: No suspicious pleomorphic-type calcifications are seen. Skin Thickening/Nipple Retraction: None. Axilla: Unremarkable. IMPRESSION: 1. BI-RADS category 1, negative. No significant interval change with no specific features of maligna ncy noted. 2. Unless there is more urgent need, screening mammography is recommended, as per [place] [employer] guidelines. A negative radiographic report should not delay biopsy if a dominant or clinically suspicious mass is present. Up to ten percent of cancers are not identified on mammography. A negative report may reinforce clinical impression. Adenosis and dense breasts may obscure an underlying neoplasm. False positive reports average 6 to 10%. Patient will receive a letter notifying them of these results.
== END 2019-07-10 01:14 ==
PROVIDERS: PCP Internal Medicine; Visit Provider Internal Medicine
DX: Z12.31 Encounter for screening mammogram for malignant neoplasm of breast (principal)
CPT/HCPCS: 77063; 77067

== ENCOUNTER 2019-07-23 08:06 | Outpatient (CLI) | payer MEDICARE, SELFPAY ==
[2019-07-23 08:51] LABS: HCT 41.5 % (36.0-46.0); HGB 13.4 g/dL (12.0-15.5); Mean Corp. HGB Concentration 32.3 g/dL (32.0-36.0); Mean Corpuscular Hemoglobin 28.5 pg (27.0-33.0); Mean Corpuscular Volume 88.3 fL (80-95); Platelet Count 422 x1000/uL (130-400); RBC Distribution Width 16.3 % (11.7-14.6); White Blood Cell Count 5.95 k/cumm (4.4-10.8)
[2019-07-23 08:52] LABS: ALT 54 U/L (14-59); AST 35 U/L (15-37); Albumin 3.6 g/dL (3.4-5.0); Alkaline Phosphatase 173 U/L (46-116); Anion Gap 6.3 mmol/L (3-11); BUN 14 mg/dL (7-18); Bilirubin, Total 0.9 mg/dL (0.2-1.0); CO2 27.7 mmol/L (21.0-32.0); CREATININE 0.67 mg/dL (0.55-1.02); Calcium 8.7 mg/dL (8.5-10.1); Calculated LDL 131 mg/dL (<100); Chloride 105 mmol/L (98-107); Cholesterol 200 mg/dL (<200); Glucose 106 mg/dL (74-106); HDL Cholesterol 62 mg/dL (40-60); Potassium 3.9 mmol/L (3.5-5.1); Sodium 139 mmol/L (136-145); Total Protein 7.3 g/dL (6.4-8.2); Triglyceride 36 mg/dL (<150)
== END 2019-07-23 08:26 ==
PROVIDERS: PCP Internal Medicine; Visit Provider Internal Medicine
DX: E78.00 Pure hypercholesterolemia, unspecified (principal); R16.1 Splenomegaly, not elsewhere classified; K74.69 Other cirrhosis of liver
CPT/HCPCS: 36415; 80053; 80061; 85027

== ENCOUNTER → 2019-08-11 15:14 | Outpatient (BNVA) | payer MEDICARE, SELFPAY | PROVIDERS: PCP Internal Medicine; Referring Provider Internal Medicine; Visit Provider Student in an Organized Health Care Education/Training Program | DX: M65.341 Trigger finger, right ring finger (principal) | CPT/HCPCS: 99203; 99213 ==

== ENCOUNTER → 2019-11-03 11:03 | Outpatient (BNVA) | payer MEDICARE, SELFPAY | PROVIDERS: PCP Internal Medicine; Referring Provider Internal Medicine; Visit Provider Student in an Organized Health Care Education/Training Program | DX: M65.341 Trigger finger, right ring finger (principal) | CPT/HCPCS: 99211; 99213 ==

== ENCOUNTER 2020-01-25 11:20 | Emergency (ER) | payer MEDICARE, SELFPAY ==
[2020-01-25 11:30] VITALS: BP 120/62; PULSE 75; RESP 18; TEMP 37.6; O2SAT 95
--- NOTE | 2020-01-25 11:56 | ED.GENADUL_ITS ---
Discharge Plan Disposition Patient Disposition: HOME Condition: Improving Discharge Details Chief Complaint: Fever Clinical Impression: Examination for, medical, general Primary Care Provider: Kelley Macias ED Provider: Aramis Bosch Home Meds and New Rx's Prescriptions: Continued kpyhrswr-ajq-zfreu-ici685-ubfd [Cmxhku-Msqyf-BHV (with antiox)] 500-500-66.7 mg tablet PO RF: 0 [facility] 10 billion cell -200 mg capsule PO DAILY AM RF: 0 liver detox PO QDAY RF: 0 omega-3 fatty acids [Super Wheeler-3] 1,000 mg capsule 1,000 mg PO BID RF: 0 zinc 50 mg tablet 50 mg PO DAILY RF: 0 (DME) junaid.stocking,thigh,reg,med Misc See Dose Instructions .ROUTE .MEDSUPPLY Qty: 2 RF: 0 (DME) compress.stocking,knee,reg,med Misc See Dose Instructions .ROUTE .MEDSUPPLY Qty: 4 RF: 0 multivitamin [Daily Multi-Vitamin] 1 EACH tablet 1 ea PO DAILY RF: 0 folic acid 1 MG tablet 1 mg PO DAILY RF: 0 biotin 5 MG tablet 5 mg PO DAILY RF: 0 lysine 1,000 MG tablet 1,000 mg PO DAILY Qty: 90 RF: 3 Oc-J6-zge-wria-eyw-uypl-bor 1 EACH tablet 1 ea PO TID RF: 0 Deana Protect 57 GM cream 1 applic Topical TID PRNQty: 57 RF: 3 coenzyme Q10 [CoQ-10] 100 mg capsule 100 mg PO DAILY RF: 0 ascorbic acid (vitamin C) [Vitamin C] 1,000 mg tablet 1,000 mg PO DAILY PRNQty: 2 RF: 0 milk thistle fruit extct,fruit 140-500 mg capsule 2 cap PO RF: 0 propranolol 10 mg tablet 10 mg PO BID Qty: 180 RF: 3 spironolactone 50 mg tablet 50 mg PO DAILY Qty: 90 RF: 3 furosemide 40 mg tablet 40 mg PO DAILY Qty: 90 RF: 3 omeprazole 20 mg capsule,delayed release(DR/EC) 20 mg PO DAILY Qty: 90 RF: 3 aspirin 81 MG tablet,chewable 81 mg PO DAILY RF: 0 Discharge Instructions Additional Instructions: Your temperature was 37.6 degrees today. Home to rest, small, frequent sips of fluids to maintain hydration. May take 162 mg of aspirin if needed for fever at home. Return if develop a cough, persistent high fevers, vomiting or bloating, or any other acute concerns. Medical Decision Making This is a 54-year-old female who presents with subjective fever at home. She arrives and has a temperature of 37.6. She has had some loose watery stool, no other subjective sources of infection including the lack of abdominal pain, no cough, no urinary changes. After being reassured she did not have a fever, the patient stated that she would not want to have further work-up. We had discussed checking blood work, COVID testing, urinalysis. She prefers to be discharged with conservative management at home. Her exam is reassuring and I think this is a very reasonable choice. She will return for any acute concerns. HPI General Mode of arrival: ambulatory . Date/Time Provider Initiated Documentation: 01/25/20 11:21 . Limitations to Documentation: no limitations . Information obtained by: patient . History of Present Illness 54 year old F presents to the emergency department with the chief complaint of Subjective fever, described as mild, Quality is described as dull, Patient reports no radiation. and it has been constant. No relieving factors improve symptom(s), No exacerbating factors reported . Patient notes fever/chills and malaise; denies cough and shortness of breath. Patient did receive the following treatments prior to arrival, none Related Data Home Medications Medication Instructions Recorded Confirmed aspirin 81 mg PO DAILY 11/17/14 01/21/20 biotin 5 mg PO DAILY 09/19/16 01/21/20 folic acid 1 mg PO DAILY tab 09/19/16 01/21/20 lysine 1,000 mg PO DAILY #90 tab 09/19/16 01/21/20 multivitamin [Daily Multi-Vitamin] 1 ea PO DAILY 09/19/16 01/21/20 Kc-X1-vah-rzsf-hzf-obbj-bor 1 ea PO TID 09/28/16 01/21/20 Deana Protect 1 applic TOPICAL TID PRN #57 gm 12/04/16 01/21/20 iudlvdopsng-gjj-dusmfgcgh-hrb tab PO tab 03/25/18 01/21/20 149-hyalur 500 mg-500 mg-66.7 mg tablet coenzyme Q10 100 mg capsule 100 mg PO DAILY 04/08/18 01/21/20 omega-3 fatty acids 1,000 mg 1,000 mg PO BID cap 07/23/18 01/21/20 capsule ascorbic acid (vitamin C) 1,000 mg 1,000 mg PO DAILY PRN #2 10/22/18 01/21/20 tablet Lactobacillus rhamnosus GG 10 cap PO DAILY AM cap 12/17/18 01/21/20 billion cell-inulin 200 mg capsule junaid.stocking,thigh,reg,med #2 each 07/01/19 01/21/20 compress.stocking,knee,reg,med #4 each 07/01/19 01/21/20 zinc 50 mg tablet 50 mg PO DAILY 07/01/19 01/21/20 milk thistle fruit extract-milk 2 cap PO cap 07/10/19 01/21/20 thistle fruit 140 mg-500 mg capsule liver detox PO QDAY 07/22/19 01/21/20 furosemide 40 mg tablet 40 mg PO DAILY #90 tab 09/02/19 01/21/20 omeprazole 20 mg capsule,delayed 20 mg PO DAILY #90 tab-cap 09/02/19 01/21/20 release propranolol 10 mg tablet 10 mg PO BID #180 tab 09/02/19 01/21/20 spironolactone 50 mg tablet 50 mg PO DAILY #90 tab-cap 09/02/19 01/21/20 Previous Rx's Medication Instructions Recorded junaid.stocking,thigh,reg,med #2 each 07/01/19 compress.stocking,knee,reg,med #4 each 07/01/19 furosemide 40 mg tablet 40 mg PO DAILY #90 tab 09/02/19 omeprazole 20 mg capsule,delayed 20 mg PO DAILY #90 tab-cap 09/02/19 release propranolol 10 mg tablet 10 mg PO BID #180 tab 09/02/19 spironolactone 50 mg tablet 50 mg PO DAILY #90 tab-cap 09/02/19 Allergies Allergy/AdvReac Type Severity Reaction Status Date / Time ciprofloxacin Allergy Intermediate Itching Verified 01/21/20 13:25 General Stated Complaint: Fever KILLIAN: 3 Review of Systems Narrative: Loose stool at home. No cough, no travel, no urinary frequency or burning. 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 [place]: Small (<5mm) esophageal varices; Portal hyper tensive gastropathy; Type 2 gastroesophageal varcies (GOV2, esophageal varcies which extend along the fundus); Normal examined duodenum; No specimens collected. Endoscopy (12/06/12) Dr Mcdowell @ [facility] Endoscopy 09/02/2013, 09/03/2013,09/11/2013,04/02/2014 04/19/15 04/17/16[place] [place]onsillect[place] 1976 Upper GI endoscopy w/ bx (11/28/16) Family History Mother Leukemia Father Essential hypertension Melanoma Brother Essential hypertension Social History (Updated 07/01/19 @ 09:56 by Emiliana Nunez LPN) Smoking/Tobacco Use Status: Never Alcohol Intake: never Drug use: Never Substance use type: does not use Household members: none Housing: apartment Current gender identity: female What type of physical activity do you participate in: none Seatbelt use: always Drive intox or ride w/intox salesperson driver: No Working smoke detector in home: Yes Fire extinguisher in home: Yes Carbon monox detector in home: Yes Do you feel safe at home: Yes Exam Narrative Exam Narrative: GEN: awake, alert, oriented 3. Pleasant, well groomed, interactive. HEAD: Normocephalic, atraumatic ENT: External ear exam unremarkable EYES: PERRL, EOMI NECK: Full ROM, no BLADE, no menigismus CHEST/RESP: No respiratory distress CARDIOVASCULAR: 2+ Rad pulse bilateral EXT: Full ROM, no edema, no rash Neuro: Grossly normal neurologic exam, conversant, interactive. Psych: Speech fluent, thoughts congruent, affect normal Course Vital Signs Vital signs: Vital Signs Temperature 37.6 C H 01/25/20 11:30 Pulse 75 01/25/20 11:30 Respiratory Rate 18 01/25/20 11:30 Blood Pressure 120/62 01/25/20 11:30 Pulse Oximetry 95 01/25/20 11:30 Temperature 37.6 C H 01/25/20 11:30 Temperature Source Temporal Artery Scan 01/25/20 11:30 Pulse 75 01/25/20 11:30 Respiratory Rate 18 01/25/20 11:30 Blood Pressure 120/62 01/25/20 11:30 Pulse Oximetry 95 01/25/20 11:30 Oxygen Delivery Method Room Air 01/25/20 11:30 Oxygen Flow Rate 0 01/25/20 11:30
== END 2020-01-25 12:04 | disposition home or self-care (01) ==
PROVIDERS: Emergency Provider Emergency Medicine; PCP Internal Medicine
DX: R50.9 Fever, unspecified (principal); Z53.29 Procedure and treatment not carried out because of patient's decision for other reasons; I10 Essential (primary) hypertension
CPT/HCPCS: 99282; 99283

== ENCOUNTER 2020-09-01 15:07 | Outpatient (REF) | payer MEDICARE, MEDICAID, SELFPAY ==
--- NOTE | 2020-09-01 14:00 | PAPFT_PTH ---
PATIENT: Yulisa Bowen LOC: [facility] U#:[id number] AGE/SX: 55/F ROOM: RE09/01/[address]: Kelley Macias MD : [id number] BED: DIS: 09/01/2020 SPEC #: [id number] RECD: 09/02/20 13:08 STATUS: KIM REDusty #: [id number] WILLY: 09/01/20 14:[address]: Kelley Macias DEPT: [facility] Cytology RECD BY: Orin Quiroz Tissues: 1 - CX/ENDOCX FOR PAP SMEARS Procedures: PAP THIN PREP/UVM Screening HPV DNA PROBE Comments: [id number]
== END 2020-09-01 15:08 | disposition home or self-care (01) ==
LOC: LBN 15:07
PROVIDERS: PCP Internal Medicine; Visit Provider Internal Medicine
DX: Z12.4 Encounter for screening for malignant neoplasm of cervix (principal); Z11.51 Encounter for screening for human papillomavirus (HPV)
CPT/HCPCS: 88142; 87624

== ENCOUNTER 2020-09-08 02:15 | Outpatient (CLI) | payer MEDICARE, MEDICAID, SELFPAY ==
[2020-09-08 11:52] LABS: Anion Gap 8.6 mmol/L (3-11); BUN 14 mg/dL (7-18); CO2 29.4 mmol/L (21.0-32.0); CREATININE 0.6 mg/dL (0.55-1.02); Calcium 9.1 mg/dL (8.5-10.1); Calculated LDL 117 mg/dL (<100); Chloride 104 mmol/L (98-107); Cholesterol 210 mg/dL (<200); Glucose 101 mg/dL (74-106); HDL Cholesterol 88 mg/dL (40-60); Potassium 4.5 mmol/L (3.5-5.1); Sodium 142 mmol/L (136-145); Triglyceride 27 mg/dL (<150)
== END 2020-09-08 02:16 | disposition home or self-care (01) ==
LOC: LBO 02:15
PROVIDERS: PCP Internal Medicine; Visit Provider Internal Medicine
DX: I10 Essential (primary) hypertension (principal); E78.00 Pure hypercholesterolemia, unspecified
CPT/HCPCS: 36415; 80048; 80061

== ENCOUNTER 2020-11-03 08:11 | Outpatient (CLI) | payer MEDICARE, MEDICAID, SELFPAY ==
[2020-11-04 15:26] LABS: COVID-19 RT-PCR UVMMC Result Negative (Negative)
== END 2020-11-03 08:12 | disposition home or self-care (01) ==
PROVIDERS: PCP Internal Medicine; Visit Provider Internal Medicine
DX: Z20.822 Contact with and (suspected) exposure to COVID-19 (principal)
CPT/HCPCS: U0003; U0005

== ENCOUNTER 2021-02-03 08:56 | Outpatient (CLI) | payer MEDICARE, MEDICAID, SELFPAY ==
--- NOTE | 2021-02-03 07:45 | DI.US_ITS ---
Exam(s) US LOWER EXTREMITY VENOUS LT EXAM: US LOWER EXTREMITY VENOUS LT CLINICAL HISTORY: pain, harder vein, varicose veins, I83.813, hx dvt lle TECHNIQUE: Left lower extremity venous ultrasound performed using grayscale, color-flow, and spectra l Doppler analysis. COMPARISON: No exams were available for comparison FINDINGS: The left common femoral, femoral and popliteal veins demonstrate normal compressibility, augmentation , and color Doppler. There are paired posterior tibialis veins. One of the paired veins contains non compressible thrombus. The other is patent and shows normal compression. The saphenofemoral junctio n is unremarkable. There is thrombus seen in the distal small saphenous vein. There is no evidence of a Simpson cyst. The soft tissues are unremarkable. IMPRESSION: 1. Occlusive thrombus seen in 1 of the paired posterior tibialis veins. Otherwise patent deep venous system. 2. Superficial thrombophlebitis. DATA REPOSITORY:
== END 2021-02-03 09:16 ==
PROVIDERS: PCP Internal Medicine; Visit Provider Internal Medicine
DX: I83.813 Varicose veins of bilateral lower extremities with pain (principal); I82.442 Acute embolism and thrombosis of left tibial vein
CPT/HCPCS: 93971

== ENCOUNTER 2021-02-08 02:31 | Outpatient (CLI) | payer MEDICARE, MEDICAID, SELFPAY ==
--- NOTE | 2021-02-08 | DI.US_ITS ---
Exam(s) US LOWER EXTREMITY VENOUS LT EXAM: US LOWER EXTREMITY VENOUS LT CLINICAL HISTORY: RE-EVAL THROMBUS, VENOUS INSUFF, VARICOSE VEINS, I87.2, I83.813, O87.0 TECHNIQUE: Grayscale, color, and doppler imaging of the deep venous system of the left lower extremi ty was performed. COMPARISON: US US LOWER EXTREMITY VENOUS LT from 02/03/2021 FINDINGS: Study remains positive. With respect of the deep venous system, there is again no evidence of DVT at and above the knee level . There is no evidence of intraluminal thrombus and there is normal compression and augmentation demons trated within the common femoral vein, femoral vein, and popliteal vein. However, there is persistent noncompressibility of the posterior tibial veins consistent with the per sistent DVT at this level. There is also persistent noncompressibility of the small saphenous vein. No evidence of thrombus within the greater saphenous vein above the level of the knee. IMPRESSION: 1. Persistent DVT in the posterior tibial veins (below the level in the). No evidence of DVT above the level of the knee. 2. Persistent thrombus within the small saphenous vein. DATA REPOSITORY:
--- NOTE | 2021-02-08 16:30 | DI.VRAD_ITS ---
PROCEDURE INFORMATION: Exam: US Duplex Left Lower Extremity Veins, Limited Exam date and time: 02/08/2021 3:36 PM Age: 55 years old Clinical indication: Condition or disease; Embolism or thrombosis; Lower extremity, left TECHNIQUE: Imaging protocol: Real-time Duplex ultrasound of the Left Lower Extremity with 2-D ordonez scale, color Doppler flow and spectral waveform analysis with image documentation. Limited exam focused on the left lower extremity veins. COMPARISON: US LOWER EXTREMITY VENOUS LT 02/03/2021 8:50 AM FINDINGS: Left deep veins: There is persistent noncompressibility of the posterior tibial veins compatible with persistent deep venous thrombosis. The common femoral, femoral, proximal profunda femoral and popliteal veins are patent without thrombus. Normal Doppler waveforms. Normal compressibility and/or augmentation response. Left superficial veins: Unremarkable. Persistent noncompressibility of the small saphenous vein. Soft tissues: Unremarkable. IMPRESSION: 1. Persistent noncompressibility of the posterior tibial veins, compatible with persistent deep venous thrombosis. 2. Persistent noncompressibility of the small saphenous vein compatible with superficial thrombosis. Dictated and Authenticated by: Izaiah White MD. Ordering:DAMIEN Thornton MD
== END 2021-02-08 02:51 ==
PROVIDERS: PCP Internal Medicine; Visit Provider Student in an Organized Health Care Education/Training Program
DX: I82.442 Acute embolism and thrombosis of left tibial vein (principal); I82.812 Embolism and thrombosis of superficial veins of left lower extremity; I87.2 Venous insufficiency (chronic) (peripheral); I83.813 Varicose veins of bilateral lower extremities with pain
CPT/HCPCS: 93971

== ENCOUNTER 2021-07-06 01:24 | Outpatient (CLI) | payer MEDICARE, MEDICAID, SELFPAY ==
--- NOTE | 2021-07-06 12:15 | DI.MAMMO_ITS ---
Exam(s) MAMMO SCREENING EXAM: MAMMO SCREENING CLINICAL HISTORY: screening,z12.39. TECHNIQUE: Bilateral full field digital CC and MLO mammographic images were obtained with 3D tomosyn thesis and utilizing computer aided detection (CAD). COMPARISON: Prior mammograms dating back to 2011, the most recent being June 2019. FINDINGS: There has been no significant change in the appearance and distribution of the fibroglandular tissue. There are no new spiculated masses nor malignant appearing microcalcification groups. Asymmetric tissue in left breast is unchanged from prior studies. There is no significant architectural distortion nor skin thickening-retraction. IMPRESSION: No radiographic evidence of malignancy. BI-RADS Category 1 - Negative Breast Density - Category B - Scattered areas of fibroglandular density Breast density Category C or D implies that the patient has dense breast tissue. Dense breast tissue can make it harder to find cancer on a mammogram. Dense breast tissue is also associated with an incr eased risk of breast cancer. This information about the result of the mammogram report was provided to the patient to raise their awareness. Use this report when you speak with the patient about their risks for breast cancer, which includes their family history. At that time, you may recommend additional screening tests (Ultrasoun d or MRI) as these tests may add significant information. A negative radiographic report should not delay biopsy if a dominant or clinically suspicious mass is present. Up to ten percent of cancers are not identified on mammography. A negative report may reinforce clinical impression. Adenosis and dense breasts may obscure an underlying neoplasm. False positive reports average 6 to 10%. Patient will receive a letter notifying them of these results.
== END 2021-07-06 01:44 ==
PROVIDERS: PCP Internal Medicine; Visit Provider Internal Medicine
DX: Z12.31 Encounter for screening mammogram for malignant neoplasm of breast (principal)
CPT/HCPCS: 77063; 77067

== ENCOUNTER 2021-12-07 17:05 | Emergency (ER) | payer MEDICARE, MEDICAID, SELFPAY ==
[2021-12-07 17:07] VITALS: BP 113/64; PULSE 74; RESP 20; TEMP 37.2; O2SAT 98
--- NOTE | 2021-12-07 17:15 | W.ED.GENAD ---
Discharge Plan Disposition Patient Disposition: HOME Condition: Stable Discharge Details Clinical Impression: Hematoma of left knee region Primary Care Provider: Kelley Macias ED Provider: Ny Stanley Home Meds and New Rx's Prescriptions: Continued dywzdpcw-tak-pqaap-bzo873-skko [Whlhpw-Jiazo-FIK (with antiox)] 500-500-66.7 mg tablet PO liver detox PO QDAY PRN Label Comments: tea form aspirin [Enteric Coated Aspirin] 81 mg tablet,delayed release (DR/EC) 81 mg PO DAILY Lysine-L PO DAILY Label Comments: take 1 tablet loratadine [Claritin] 10 mg tablet 10 mg PO DAILY PRN omega-3 fatty acids [Super [place]-3] 1,000 mg capsule 1,000 mg PO BID zinc 50 mg tablet 50 mg PO DAILY (DME) compress.stocking,knee,reg,med Misc See Dose Instructions .ROUTE .MEDSUPPLY Qty: 2 3RF Dose Instruction: As directed Rx Instructions: Apply in AM, remove in PM (DME) junaid.stocking,thigh,reg,med Misc See Dose Instructions .ROUTE .MEDSUPPLY Qty: 2 2RF Dose Instruction: As directed Rx Instructions: Apply in AM, remove in PM; multivitamin [Daily Multi-Vitamin] 1 EACH tablet 1 ea PO DAILY folic acid 1 MG tablet 1 mg PO DAILY biotin 5 MG tablet 5 mg PO DAILY Pd-I0-klb-dizq-reh-ntbm-bor 1 EACH tablet 1 ea PO TID Rx Instructions: 500MG/250MG/200U [facility] 09/20/16 CGC Deana Protect(dimethicone-zinc) 57 GM cream 1 applic Topical TID PRNQty: 57 coenzyme Q10 [CoQ-10] 100 mg capsule 100 mg PO DAILY Label Comments: 04/08/18 Pt taking 200 mg daily. mk ascorbic acid (vitamin C) [Vitamin C] 1,000 mg tablet 1,000 mg PO DAILY PRNQty: 2 milk thist seed ext-milk thist 140-500 mg capsule 2 cap PO Label Comments: milk thistle,dandelion,vit c,artichoke,green beets. lactulose 10 gram/15 mL solution 10 g PO BID PRN (Reason: ammonia level) Qty: 946 12RF furosemide 40 mg tablet 40 mg PO DAILY Qty: 90 3RF omeprazole 20 mg capsule,delayed release(DR/EC) 20 mg PO DAILY Qty: 90 3RF propranolol 10 mg tablet 10 mg PO BID Qty: 180 3RF spironolactone 50 mg tablet 50 mg PO DAILY Qty: 90 3RF qkxybst-btsr-prnhk-oreg-capryl 100 mg-150 mg- 50 mg-150 mg Capsule 1 cap PO PRN PRN Discharge Instructions Instructions: Hematoma (ED) Additional Instructions: Your exam is reassurring and appears consistent with a hematoma or a superficial collection of blood under the skin. Your exam does not appear consistent with a deep vein thrombosis or deep blood clot at this time. If you develop significant diffuse leg pain, swelling or your bruising worsens, you can return to the emergency department for further evaluation and consideration for leg ultrasound at that time if indicated and available. Keep your leg elevated as much as possible. You can apply ice to the area several times daily for 20 minutes at a time. Wear the Raymond wrap as needed to help with local compression. Alternate tylenol and motrin as needed and directed for pain. Follow-up with your primary care doctor in 1 week. Return to the emergency department with any worsening or new concerning symptoms. Discharge Data Discharge Physician: Ny Stanley Medical Decision Making 56-year-old female with a history of obesity, GERD, hypertension, anxiety, depression, remote DVT 15 years ago presents with painful bruise to her left posterior knee that she noted after jumping off and down 5 times at home. Vitals within normal limits. She has a 2 x 2 centimeter hematoma to the left superior posterior medial knee. There is no surrounding cellulitis, open wounds or bleeding. She has no thigh or calf tenderness. History and presentation appears distant with a local superficial bruise or hematoma and does not appear consistent with DVT at this time. Ultrasound not available but do not see indication for prophylactic anticoagulation or referral for outpatient ultrasound. Patient was advised to rest and elevate her leg is much as possible. Discussed that she can apply ice to the affected area several times daily, alternate Tylenol and Motrin and apply Raymond wrap if needed. Advised that if her symptoms worsen or she develops thigh or calf pain or swelling, to return to the emergency department for reevaluation and consideration for ultrasound at that time if indicated and available. Medical Records Medical records reviewed: Yes I reviewed the patient's medical records. HPI General Mode of arrival: ambulatory. Date/Time Provider Initiated Documentation: 12/07/21 17:14. Limitations to Documentation: no limitations. Information obtained by: patient. HPI Narrative: Patient is a 56-year-old female with a history of obesity, GERD, hypertension, remote DVT 15 years ago presents to the ED w/ a complaint of a painful bruise to her left posterior knee after jumping up and down 5 times at home prior to arrival. Patient states she heard noises in an apartment below from someone jumping and she began jumping up and down approximately 5 times and felt a twinge in her left posterior knee. She states she thought she was bitten by a tick and palpated and looked at the area and probably a small bruise. She states she is concerned about a possible blood clot due to her history of DVT. She denies any fever, thigh pain, calf pain and states the pain is only localized at the area of the Related Data Home Medications Medication Instructions Recorded Confirmed biotin 5 mg tablet 5 mg PO DAILY 09/19/16 12/07/21 folic acid 1 mg tablet 1 mg PO DAILY 09/19/16 12/07/21 multivitamin (Daily Multi-Vitamin 1 ea PO DAILY 09/19/16 12/07/21 tablet) ibzwula-C9-cwi-Ri-xkwfn-oxpv-boron 1 ea PO TID 09/28/16 12/07/21 600 mg-200 unit-40 mg-7.5 mg tablet dimethicone-zinc oxide topical 1 applic topical TID PRN #57 grams 12/04/16 12/07/21 cream (Deana Protect (dimethicone-zinc oxide) topical cream) llwirsqmiue-zvv-bsbaeykwz-hrb tab PO 03/25/18 09/07/21 149-hyalur 500 mg-500 mg-66.7 mg tablet (Jotrvkpbfls-Nkgshtbwanh-FUS (with antiox)) coenzyme Q10 100 mg capsule 100 mg PO DAILY 04/08/18 12/07/21 (CoQ-10) omega-3 fatty acids 1,000 mg 1,000 mg PO BID 07/23/18 12/07/21 capsule (Super [place]-3) ascorbic acid (vitamin C) 1,000 mg 1,000 mg PO DAILY PRN ##2 10/22/18 12/07/21 tablet (Vitamin C) zinc 50 mg tablet 50 mg PO DAILY 07/01/19 12/07/21 milk thistle seed extract 140 2 cap PO 07/10/19 09/07/21 mg-milk thistle 500 mg capsule lactulose 10 gram/15 mL oral 10 g (15 mL) PO BID PRN ammonia 09/28/20 12/07/21 solution level #946 mL aspirin 81 mg tablet,delayed 81 mg PO DAILY 02/02/21 12/07/21 release (Enteric Coated Aspirin) Lysine-L PO DAILY 02/08/21 09/07/21 liver detox PO QDAY PRN 02/08/21 09/07/21 loratadine 10 mg tablet (Claritin) 10 mg PO DAILY PRN 02/15/21 12/07/21 junaid.stocking,thigh,reg,med #2 ea 07/05/21 09/07/21 compress.stocking,knee,reg,med #2 ea 07/05/21 09/07/21 furosemide 40 mg tablet 40 mg PO DAILY #90 tabs 08/16/21 12/07/21 omeprazole 20 mg capsule,delayed 20 mg PO DAILY #90 tab-caps 08/16/21 12/07/21 release propranolol 10 mg tablet 10 mg PO BID #180 tabs 08/16/21 12/07/21 spironolactone 50 mg tablet 50 mg PO DAILY #90 tab-caps 08/16/21 12/07/21 tumeric 100 mg-brittany 150 mg-olive 1 cap PO PRN PRN 12/07/21 12/07/21 50 mg-oreg 150 mg-caprylate capsule Previous Rx's Medication Instructions Recorded lactulose 10 gram/15 mL oral 10 g (15 mL) PO BID PRN ammonia 09/28/20 solution level #946 mL junaid.stocking,thigh,reg,med #2 ea 07/05/21 compress.stocking,knee,reg,med #2 ea 07/05/21 furosemide 40 mg tablet 40 mg PO DAILY #90 tabs 08/16/21 omeprazole 20 mg capsule,delayed 20 mg PO DAILY #90 tab-caps 08/16/21 release propranolol 10 mg tablet 10 mg PO BID #180 tabs 08/16/21 spironolactone 50 mg tablet 50 mg PO DAILY #90 tab-caps 08/16/21 Allergies Allergy/AdvReac Type Severity Reaction Status Date / Time ciprofloxacin Allergy Intermediate Itching Verified 12/07/21 17:12 General Stated Complaint: Vascular KILLIAN: 4 Review of Systems All systems reviewed & are unremarkable except as noted in HPI and below Constitutional Constitutional: Reports as per HPI, Denies chills and Denies fever(s) Eyes Eyes: Denies blurry vision ENT Ears, Nose, Mouth, and Throat: Denies dizziness, Denies sore throat and Denies throat swelling Cardiovascular Cardiovascular: Denies chest pain and Denies dyspnea Respiratory Respiratory: Denies cough and Denies dyspnea Gastrointestinal Gastrointestinal: Denies abdominal pain, Denies diarrhea and Denies vomiting Genitourinary Genitourinary: Denies hematuria and Denies dysuria Musculoskeletal Musculoskeletal: Denies back pain and Denies numbness Integumentary/Breasts Skin/Breast: Denies lesions and Denies rash Neurologic Neurologic: Denies dizziness, Denies localized weakness and Denies numbness Allergic/Immunologic Allergic/Immunologic: Denies throat swelling PFSH All Active Problems (Updated 12/07/21 @ 17:51 by Ny Stanley DO) Hematoma of left knee region (Acute) Venous insufficiency (chronic) (peripheral) (Acute 12/30/20) bilateral LE, compression stockings 30MM, Dr Clark Osteoarthritis of foot, right (Chronic 12/30/20) Varicose veins of both lower extremities (Chronic) Trigger finger of right hand (Acute) Ring Finger Seasonal allergies (Chronic) Cholelithiasis (Acute 08/19/14) Herpes simplex virus (HSV) infection (Acute) Hypertension (Acute 02/12/15) Splenomegaly (Acute 08/19/14) Portal hypertension syndrome (Acute 03/16/15) esophageal varices, gastric varices, portal colopathy 02/18/18 Upper Gi Endoscopy at [facility] (Dr Hernandez)\ 09/15/21 UGI- [place] hypertensive gastropathy Obesity (Chronic 02/15/15) Hypercoagulable state (Acute 03/02/11) Hematology [facility]; ASA for DVT prophylaxis due to hx variceal bleeding clotting disorder: Prolonged PT & PTT and mild hypofibrinogenemia which may be a consequence of underlying liver disease. No evidence for presence of common hereditary or acquired hematologic risk factors associated with arterial thromboembolism; DVT ; multiple (16) losses in 1st trimester Gastric varices (Acute 09/02/13) GERD (gastroesophageal reflux disease) (Acute 02/12/15) Esophageal varices (Acute 03/02/11) 09/15/21 UGI- small <5mm esophageal varice Cryptogenic cirrhosis of liver (Chronic) No hx of heavy ETOH use. liver biopsy in [place] [facility] (Acute 01/07/13) noted on US. Tx with Aldactone and Lasix Arthritis (Acute 02/12/15) Anxiety and depression (Chronic 02/12/15) Medical History (Updated 12/07/21 @ 17:51 by Ny Stanley DO) Acute posthemorrhagic anemia (09/04/13) Contusion of right knee, initial encounter (09/22/15) Deep vein thrombosis Family history of malignant melanoma HE (hepatic encephalopathy) (09/02/13) Lactulose Rifaximin Portal vein thrombosis (02/12/12) portal hypertension portal vein, SMV and splenic vein since 2006 and also noted on US 01/2012 Sinus tarsi syndrome of both ankles (08/20/19) Podiatry/[place] Thrombosis of saphenous vein UGIB (upper gastrointestinal bleed) (09/02/12) Grade 1 EV and Type 2 GOV.Not a candidate for TIPS due to PV thrombus GOV= gastric varices PV thrombus = portal vein thrombus Surgical History Colonoscopy - MAC (~08/2013) Dr Jimmy Austin @[facility] Endoscopy EGD - IV Sedation (04/19/15) Dr. Homa Hernandez-[facility] Impression: Small (<5mm) esophageal varices; Portal hyper tensive gastropathy; Type 2 gastroesophageal varcies (GOV2, esophageal varcies which extend along the fundus); Normal examined duodenum; No specimens collected. Endoscopy (12/06/12) Dr Mcdowell @ [facility] Endoscopy 09/02/2013, 09/03/2013,09/11/2013,04/02/2014 04/19/15 04/17/16-Dr Hernandez-[facility] Hx of endoscopy (~09/13/20) ,5 mm varices in lower 3rd of esophagus. extensive scarring from prior bandings. Moderate portal hypertensive gastropathy in stomach. Nl duodenum. Tonsillectomy 1976 Upper GI endoscopy w/ bx (11/28/16) Family History Mother Leukemia Father Essential hypertension Melanoma Brother Essential hypertension Maternal Grandmother Colon cancer Social History Smoking/Tobacco Use Status: Never Smoking risk assessment performed?: Yes Alcohol Intake: never Drug use: Never Substance use type: does not use Household members: none Housing: apartment Number of Children: 0 Communication Needs: Corrective Lenses current occupation: Works for [id number] Current gender identity: female What is your relationship status?: How often do you talk on the phone with friends or family?: three or more times per week How often do you attend jain or pentecostal services?: 4 or more times per year Panel score (0-1 are the most socially isolated patients): 2 What type of physical activity do you participate in: walking Duration: 15-30 minutes/day Frequency: 1-2 times per week Seatbelt use: always Drive intox or ride w/intox driver wheelchair: No Working smoke detector in home: Yes Fire extinguisher in home: Yes Carbon monox detector in home: Yes Do you feel safe at home: Yes Do you feel safe in your relationship?: Yes Exam Const General: cooperative, healthy appearing and no acute distress Orientation: alert, awake and oriented x3 HENMT Head: normal to inspection Mouth: oral mucosae normal Eyes General: appearance normal, both eyes and all related structures Neck Neck: normal visual inspection Resp Effort & Inspection: normal respiratory effort and able to speak in complete sentences Cardio Rate: regular rate Skin General skin exam: no rashes or lesions noted Neuro General: patient alert, patient awake and patient oriented x3 Motor: muscle tone normal throughout Extrem General: full ROM, capillary refill normal and no calf tenderness Knee images: 1. An approximate 2 x 2 tender area of ecchymosis noted to the left superior posterior medial knee. There is no surrounding erythema, significant edema, crepitus, induration or fluctuance. There is no active bleeding or discharge. Other: No tenderness to palpation of her left thigh or left lower leg. Psych Appearance: grossly normal Affect: normal affect Course Vital Signs Vital signs: Vital Signs Temperature 99.0 F 12/07/21 17:07 Pulse 74 12/07/21 17:07 Respiratory Rate 20 12/07/21 17:07 Blood Pressure 113/64 12/07/21 17:07 Pulse Oximetry 98 12/07/21 17:07 Temperature 99.0 F 12/07/21 17:07 Temperature Source Temporal Artery Scan 12/07/21 17:07 Pulse 74 12/07/21 17:07 Respiratory Rate 20 12/07/21 17:07 Respiratory Effort 12/07/21 17:12 Blood Pressure 113/64 12/07/21 17:07 Blood Pressure Position Sitting 12/07/21 17:07 Pulse Oximetry 98 12/07/21 17:07 Oxygen Delivery Method Room Air 12/07/21 17:07 Oxygen Flow Rate 0 12/07/21 17:07 Pain Level 0 12/07/21 17:07
[2021-12-07 17:16] VITALS: RESP 20
== END 2021-12-07 20:13 | disposition home or self-care (01) ==
PROVIDERS: Emergency Provider Physician Assistant; PCP Internal Medicine
DX: S80.02XA Contusion of left knee, initial encounter (principal); X58.XXXA Exposure to other specified factors, initial encounter; Z86.718 Personal history of other venous thrombosis and embolism; I10 Essential (primary) hypertension
CPT/HCPCS: 99282

== ENCOUNTER → 2022-05-03 11:10 | Outpatient (CLI) | payer MEDICARE, MEDICAID, SELFPAY ==
--- NOTE | 2022-05-03 10:34 | DI.RAD_ITS ---
Exam(s) XR RIBS LT W PA LAT CHEST EXAM: XR RIBS LT W PA LAT CHEST CLINICAL HISTORY: Possible rib fracture, L mid-flank pain, pleurodynia, r07.81 TECHNIQUE: 2D digital imaging was performed. Nine images are obtained. COMPARISON: CR LEFT RIBS TO INCLUDE CXR from 08/21/2017 CR RIGHT SCAPULA from 02/11/[address] renal colic wo from 01/22/[address] ABDOMEN PELVIS W from 02/04/[address] ABDOMEN PELVIS W from 02/04/2019 FINDINGS: MEDIASTINUM: Normal. HEART: Normal. PULMONARY VASCULATURE: Normal. LUNGS: Clear. PLEURAL SPACE: No pleural effusion or pneumothorax. There is scarring seen in the right lung base lat erally. BONE:Within normal limits for the patient's age. LEFT RIBS: There are old left rib fracture deformities. No definite acute displaced fracture is iden tified. OTHER FINDINGS:Normal. IMPRESSION: 1. Mild scarring along the right lung base laterally. This is nonspecific. No focal consolidating i nfiltrates are seen. 2. No definite acute displaced rib fractures. If there is continued concern a CT scan of the chest s hould be considered for further evaluation. DATA REPOSITORY: RADIATION DOSE DELIVERED:
== END ==
PROVIDERS: PCP Nurse Practitioner Adult Health; Visit Provider Family Medicine
DX: R07.81 Pleurodynia (principal); J98.4 Other disorders of lung
CPT/HCPCS: 71046; 71100

== ENCOUNTER 2022-07-28 01:32 | Outpatient (CLI) | payer MEDICARE, MEDICAID, SELFPAY ==
[2022-07-28 10:24] LABS: Hemoglobin A1C 6.2 % (<5.7)
[2022-07-28 10:35] LABS: ALT 41 U/L (14-59); AST 37 U/L (15-37); Albumin 3.6 g/dL (3.4-5.0); Alkaline Phosphatase 157 U/L (46-116); Anion Gap 4.8 mmol/L (3-11); BUN 13 mg/dL (7-18); Bilirubin, Total 0.6 mg/dL (0.2-1.0); CO2 30.2 mmol/L (21.0-32.0); CREATININE 0.7 mg/dL (0.55-1.02); Calculated LDL 131 mg/dL (<100); Chloride 106 mmol/L (98-107); Cholesterol 207 mg/dL (<200); Estimated GFR 100.81 (mL/min/1.73m2); Glucose 106 mg/dL (74-106); HDL Cholesterol 71 mg/dL (40-60); Potassium 3.7 mmol/L (3.5-5.1); Sodium 141 mmol/L (136-145); Total Protein 7.5 g/dL (6.4-8.2); Triglyceride 29 mg/dL (<150)
[2022-07-31 10:42] LABS: Hepatitis C Ab w Rflx HCV PCR Negative (Negative)
[2022-07-31 11:32] LABS: HIV-1/2 Ag & Ab Screen Negative (Negative)
== END 2022-07-28 01:33 | disposition home or self-care (01) ==
LOC: LBO 01:33
PROVIDERS: PCP Nurse Practitioner Adult Health; Visit Provider Nurse Practitioner Adult Health
DX: F41.8 Other specified anxiety disorders (principal); R73.01 Impaired fasting glucose; I87.2 Venous insufficiency (chronic) (peripheral); E66.8 Other obesity; Z11.4 Encounter for screening for human immunodeficiency virus [HIV]; Z11.59 Encounter for screening for other viral diseases
CPT/HCPCS: 36415; 80053; 80061; 86803; 87389; 83036; 84443

== ENCOUNTER 2022-09-06 01:41 | Outpatient (CLI) | payer MEDICARE, MEDICAID, SELFPAY ==
--- NOTE | 2022-09-06 08:40 | DI.MAMMO_ITS ---
Exam(s) MAMMO SCREENING EXAM: MAMMO SCREENING CLINICAL HISTORY: screening, Z12.39 TECHNIQUE: Bilateral full field digital CC and MLO mammographic images were obtained with 3D tomosyn thesis and utilizing computer aided detection (CAD). COMPARISON: Available for comparison. FINDINGS: Masses/Architectural Distortion: None seen. Microcalcifications: No suspicious pleomorphic-type are seen. Skin Thickening/Nipple Retraction: None. IMPRESSION: 1. No significant interval change with no specific features of malignancy noted. 2. Unless there is more urgent need, screening mammography is recommended, as per [place] [employer] guidelines. BI-RADS Category 1 - Negative Breast Density - Category B - Scattered areas of fibroglandular density Breast density category C or D implies that the patient has dense breast tissue. Dense breast tissue is very common and is not abnormal but dense breast tissue can make it harder to find cancer on a ma mmogram. Also, dense breast tissue may increase their breast cancer risk. This information about the result of the mammogram report was provided to the patient to raise their awareness. Use this report when you speak with the patient about their risks for breast cancer, which includes their family hist ory. At that time, you may recommend for more screening tests (Ultrasound or MRI) as they might be us eful based on their risk. A negative radiographic report should not delay biopsy if a dominant or clinically suspicious mass is present. Up to ten percent of cancers are not identified on mammography. A negative report may reinforce clinical impression. Adenosis and dense breasts may obscure an underlying neoplasm. False positive reports average 6 to 10%. Patient will receive a letter notifying them of these results.
== END 2022-09-06 02:01 ==
LOC: DI 01:41
PROVIDERS: PCP Nurse Practitioner Adult Health; Visit Provider Nurse Practitioner Adult Health
DX: Z12.31 Encounter for screening mammogram for malignant neoplasm of breast (principal)
CPT/HCPCS: 77063; 77067

== ENCOUNTER 2022-09-19 01:38 | Outpatient (CLI) | payer MEDICARE, MEDICAID, SELFPAY ==
--- NOTE | 2022-09-19 07:15 | DI.US_ITS ---
Exam(s) US HERNIA EXAM: US HERNIA CLINICAL HISTORY: ? Umbilical hernia,umbilical mass, r19.09. TECHNIQUE: Ultrasound was performed using standard protocol. COMPARISON: CT CT ABDOMEN PELVIS W from 02/04/2019 FINDINGS: Sonographic assessment utilizing grayscale and color Doppler imaging was performed and targeted to th e area of clinical concern. There is a 2.5 x 2.3 x 2.4 cm heterogeneous hypoechoic cystic and solid vascular masslike area in the supraumbilical region corresponding to the palpable abnormality. On the CT scan from 02/04/2019 ther e is a round well-circumscribed fluid attenuation lesion corresponding to this area. IMPRESSION: Complex cystic and solid mass like area in the supraumbilical region corresponding to the palpable ab normality. Differential considerations include components of the mesentery, solid mass, abscess. It does not have the appearance of bowel but this cannot be excluded. A CT scan is recommended for fur ther evaluation. DATA REPOSITORY:
== END 2022-09-19 01:58 ==
LOC: DI 01:38
PROVIDERS: PCP Nurse Practitioner Adult Health; Visit Provider Nurse Practitioner Adult Health
DX: R19.05 Periumbilic swelling, mass or lump
CPT/HCPCS: 76857

== ENCOUNTER 2022-09-29 00:53 | Outpatient (CLI) | payer MEDICARE, MEDICAID, SELFPAY ==
--- NOTE | 2022-09-29 08:15 | DI.CT_ITS ---
Exam(s) CT ABDOMEN PELVIS W EXAM: CT ABDOMEN PELVIS W CLINICAL HISTORY: complex mass in umbilical region;F/U ABNL US,R93.5,R19.09 TECHNIQUE: Imaging Protocol: Axial computed tomography images with coronal and sagittal reformatted images were created and reviewed CONTRAST MATERIAL: Intravenous: Omnipaque 350 Contrast volume:100 mL Oral: Yes COMPARISON: CT CT ABDOMEN PELVIS W from 02/04/[address] ABDOMEN PELVIS W from 02/04/2019 FINDINGS: ABDOMEN: Lung Bases: Normal where visualized. Liver: Hepatic cirrhosis is present. The mild intrahepatic biliary ductal dilatation is present and stable. Portal, Superior Mesenteric, and Splenic Veins: The portal vein, superior mesenteric and splenic vein s are again poorly visualized with multiple collaterals in their place. Gallbladder and Biliary Tract: Cholelithiasis. The extrahepatic common duct is within normal limits in size. Pancreas: Normal density, no abnormal calcifications or inflammatory process. Spleen: The spleen is again seen to be markedly enlarged. Adrenals: The left adrenal nodule appears stable. The right adrenal gland is unremarkable. Kidneys: Normal size, contour and axis. No radiodense stones or obstructive uropathy. No masses seen. Abdominal Aorta: Abdominal portion non-dilated. Bowel: There is no evidence of bowel obstruction. There is mild diffuse thickening of the wall of th e small bowel and proximal colon. This is nonspecific. This may be due to the patient's poor liver status. This is unchanged compared to the prior examination. No findings to suggest an acute inflam matory/infectious process of the bowel. Appendix is unremarkable. Peritoneal Cavity: Mild increased attenuation seen throughout the mesentery which is unchanged. No f ree air. Lymph Nodes: Stable retroperitoneal adenopathy. Bones: Within normal limits for the patient's age. There is a stable lytic lesion in the right iliac bone posteriorly. Soft Tissues: There has been no change in appearance of the hernia in the umbilicus. There is some s oft tissue seen in the hernia. No other anterior abdominal wall hernia or masses are seen. PELVIS: Bladder: Symmetric distention, no gross wall thickening. Reproductive Organs: There do appear to be a few fibroids in the uterus. Lymph Nodes: Within normal limits. Bones: Within normal limits for the patient's age. IMPRESSION: 1. Stable appearance of the umbilical hernia. There is some soft tissue seen within the hernia this is nonspecific. 2. Stable findings of hepatic cirrhosis and portal hypertension. Stable splenomegaly. 3. Stable bowel wall thickening involving small and proximal large bowel. This is nonspecific and ma y reflect the patient's liver status. Infectious/inflammatory process cannot be entirely excluded. Please correlate clinically. 4. Stable lytic lesion in the right iliac bone. Metastasis cannot be excluded. 5. Cholelithiasis. RADIATION DOSE DELIVERED: 1,335.84mGy.cm Total DLP DATA REPOSITORY: All CT scans at this facility are submitted to the National Radiology Data Registry (NRDR) Dose Index Registry (DIR) with the [place] [employer] (ACR). RADIATION OPTIMIZATION: All CT scans at this facility use at least one of these dose optimization te chniques: automated exposure control; mA and/or kV adjustment per patient size (includes targeted exa ms where dose is matched to clinical indication); or iterative reconstruction.
[2022-09-29] MEDS: Barium Sulfate 2% W/V-Berry Smoothie 450 ML BTL 900 ML PO (09:36)
[2022-09-29] MEDS: Normal Saline - Diluent 50 ML VIAL IJ (11:23)
[2022-09-29] MEDS: Omnipaque 350 MG/ML 500 ML BTL-Imaging package IJ (11:24)
== END 2022-09-29 01:13 ==
LOC: DI 00:53
PROVIDERS: PCP Nurse Practitioner Adult Health; Visit Provider Nurse Practitioner Adult Health
DX: R19.09 Other intra-abdominal and pelvic swelling, mass and lump (principal); R93.5 Abnormal findings on diagnostic imaging of other abdominal regions, including retroperitoneum
CPT/HCPCS: 74177

== ENCOUNTER → 2022-10-04 14:02 | Outpatient (BNVA) | payer MEDICARE, MEDICAID, SELFPAY | PROVIDERS: PCP Nurse Practitioner Adult Health; Referring Provider Nurse Practitioner Adult Health; Visit Provider Surgery | DX: K42.9 Umbilical hernia without obstruction or gangrene (principal); K76.6 Portal hypertension; I86.4 Gastric varices; E66.9 Obesity, unspecified | CPT/HCPCS: 99215 ==

== ENCOUNTER 2022-10-09 12:48 | Outpatient (CLI) | payer MEDICARE, MEDICAID, SELFPAY ==
--- NOTE | 2022-10-09 | DI.RAD_ITS ---
Exam(s) XR RIBS RT W PA LAT CHEST EXAM: XR RIBS RT W PA LAT CHEST CLINICAL HISTORY: RT SIDED RIB PAIN TECHNIQUE: 2D digital imaging was performed. COMPARISON: No exams were available for comparison FINDINGS: Total = 6 views RIBS 4 VIEWS-RIGHT There are no obvious acute right rib fractures evident. No lytic rib lesions identified. CXR- 2 VIEWS: No lung contusion or pneumothorax. There is no pleural effusion evident. Heart size is normal and there is no significant mediastinal widening. IMPRESSION: 1. No obvious right rib fractures evident. Also no significant rib lesions. 2. Lungs are clear. No pleural effusions. No pneumothorax. DATA REPOSITORY: RADIATION DOSE DELIVERED:
== END 2022-10-09 13:08 ==
LOC: DI 12:48
PROVIDERS: PCP Nurse Practitioner Adult Health; Visit Provider Physical Therapy Assistant
DX: R07.81 Pleurodynia (principal)
CPT/HCPCS: 71046; 71100

== ENCOUNTER 2022-10-19 16:14 | Emergency (ER) | payer MEDICARE, MEDICAID, SELFPAY ==
[2022-10-19 16:18] VITALS: BP 127/74; PULSE 72; RESP 16; TEMP 36.8; O2SAT 96
--- NOTE | 2022-10-19 17:00 | DI.RAD_ITS ---
Exam(s) XR WRIST LT COMPLETE EXAM: XR WRIST LT COMPLETE CLINICAL HISTORY: left wrist injury. TECHNIQUE: 2D digital imaging was performed. Three views. COMPARISON: CR,XR XR WRIST LT COMPLETE from 10/19/2022 FINDINGS: BONES: There is a comminuted intra-articular fracture of the distal radius with dorsal angulation and some mild impaction. There is mild separation at the articular surface greatest at the ulnar aspect . The ulnar styloid is also fractured and mildly displaced. The carpal bones and metacarpal bones a ppear intact. No bony destructive lesion is seen. JOINTS: The carpal bones are normally aligned. SOFT TISSUE: Marked swelling around the wrist. IMPRESSION: Comminuted intra-articular fracture of the distal radius. Ulnar styloid fracture. DATA REPOSITORY: RADIATION DOSE DELIVERED:
[2022-10-19] MEDS: oxyCODONE 5 MG TAB PO (17:11)
--- NOTE | 2022-10-19 18:05 | DI.VRAD_ITS ---
PROCEDURE INFORMATION: Exam: XR Left Wrist Exam date and time: 10/19/2022 5:30 PM Age: 57 years old Clinical indication: Injury or trauma; Fall; Fracture, traumatic injury; Closed fracture; Wrist; Left TECHNIQUE: Imaging protocol: Radiologic exam of the left wrist. Views: 3 or more views. COMPARISON: No relevant prior studies available. FINDINGS: Bones/joints: There is a transverse fracture of the distal radius approximally 13 mm proximal to the articular surface. There is significant dorsal angulation of the distal radial fragment. There is a mildly diastatic fracture through the base of the ulnar styloid. Carpal bones appear intact and normally aligned. Soft tissues: Unremarkable IMPRESSION: Fractures of the distal radius and ulnar styloid as described Dictated and Authenticated by: Anthony Pollock MD. Ordering:MARÍA Sr MD
[2022-10-19] MEDS: LORazepam 1 MG TAB PO (18:40)
--- NOTE | 2022-10-19 20:00 | DI.RAD_ITS ---
Exam(s) XR WRIST LT COMPLETE EXAM: XR WRIST LT COMPLETE CLINICAL HISTORY: left wrist reduction. TECHNIQUE: 2D digital imaging was performed. Three views. COMPARISON: CR,XR XR WRIST LT COMPLETE from 10/19/2022 FINDINGS: A splint has been placed. There is been some improvement in the alignment of the distal radial fract ure with decreased posterior angulation when compared with the prior exam. Ulnar styloid fracture un changed. IMPRESSION: Improvement in alignment of distal radial fracture. DATA REPOSITORY: RADIATION DOSE DELIVERED:
[2022-10-19] MEDS: MORPHine 4 MG/ML SYR IM (20:15)
--- NOTE | 2022-10-19 20:23 | DI.VRAD_ITS ---
PROCEDURE INFORMATION: Exam: XR Left Wrist Exam date and time: 10/19/2022 8:15 PM Age: 57 years old Clinical indication: Injury or trauma; Other: Reduction TECHNIQUE: Imaging protocol: Radiologic exam of the left wrist. Views: 3 or more views. COMPARISON: CR XR WRIST LT COMPLETE 10/19/2022 5:30 PM FINDINGS: Bones/joints: There has been interval partial reduction of the previously described distal radius fracture. There remains mild posterior displacement and slight posterior angulation of the distal radial fragment on the lateral view. Ulnar styloid fracture appears stable. Casting material is now in place. Soft tissues: Normal. IMPRESSION: Interval partial reduction of distal radius fracture and placement of casting material Dictated and Authenticated by: Anthony Pollock MD. Ordering:MARÍA Sr MD
--- NOTE | 2022-10-19 20:39 | ED.GENADUL_ITS ---
Discharge Plan Disposition Patient Disposition: Home Discharge Details Clinical Impression: Fracture of wrist Primary Care Provider: Yue Min ED Provider: Orin Paulino Home Meds and New Rx's Prescriptions: Continued liver detox PO QDAY PRN Patient Comments: tea form aspirin [Enteric Coated Aspirin] 81 mg tablet,delayed release (DR/EC) 81 mg PO DAILY Lysine-L PO DAILY Patient Comments: take 1 tablet mupirocin 2 % ointment 1 applic topical BID-TID Qty: 15 0RF Rx Instructions: May substitute with cream if less expensive; apply thin layer until area/lesion resolved omega-3 fatty acids [Super [place]-3] 1,000 mg capsule 1,000 mg PO BID zinc 50 mg tablet 50 mg PO .QOD (DME) compress.stocking,knee,reg,med Misc See Dose Instructions .ROUTE .MEDSUPPLY Qty: 2 3RF Dose Instruction: As directed Rx Instructions: Apply in AM, remove in PM (DME) junaid.stocking,thigh,reg,med Misc See Dose Instructions .ROUTE .MEDSUPPLY Qty: 2 2RF Dose Instruction: As directed Rx Instructions: Apply in AM, remove in PM; furosemide 40 mg tablet 40 mg PO DAILY Qty: 90 3RF melatonin 3 mg capsule 3 - 6 mg PO HS PRN (Reason: sleep) Qty: 60 1RF multivitamin [Daily Multi-Vitamin] 1 EACH tablet 1 ea PO DAILY folic acid 1 MG tablet 1 mg PO DAILY biotin 5 MG tablet 5 mg PO DAILY Fo-[id number]-gvx-dqrk-ras-ltdv-bor 1 EACH tablet 1 ea PO TID Rx Instructions: 500MG/250MG/200U [facility] 09/20/16 CGC coenzyme Q10 [CoQ-10] 100 mg capsule 100 mg PO DAILY Patient Comments: 04/08/18 Pt taking 200 mg daily. mk ascorbic acid (vitamin C) [Vitamin C] 1,000 mg tablet 1,000 mg PO DAILY PRNQty: 2 milk thist seed ext-milk thist 140-500 mg capsule 2 cap PO Patient Comments: milk thistle,dandelion,vit c,artichoke,green beets. lactulose 10 gram/15 mL solution 10 g PO BID PRN (Reason: ammonia level) Qty: 946 12RF omeprazole 20 mg capsule,delayed release(DR/EC) 20 mg PO DAILY Qty: 90 3RF propranolol 10 mg tablet 10 mg PO BID Qty: 180 3RF spironolactone 50 mg tablet 50 mg PO DAILY Qty: 90 3RF Jublia 10 % solution with applicator See Rx Instructions .ROUTE .COMPLEX Qty: 8 1RF Dose Instruction: APPLY TOPICALLY TO THE AFFECTED AREA DAILY FOR 48 WEEKS Rx Instructions: APPLY TOPICALLY TO THE AFFECTED AREA DAILY FOR 48 WEEKS Discharge Instructions Instructions: Wrist Fracture in Adults (ED) Additional Instructions: Elevate, ice, oxycodone as needed pain Nothing by mouth after midnight Day surgery will call you at 8:00 tomorrow and let you know what time your surgery is scheduled for Please return should you develop worsening pain, strength or sensation change to your fingers, or with any new or worsening complaints Referrals: Julio César Copeland MD [ [facility] STAFF PHYSICIAN] - 1 day Medical Decision Making 57-year-old female with no additional injuries aside from left wrist, dorsally angulated and wrist fracture, neurovascularly intact Case discussed with orthopedics, Dr. Copeland, recommendation for attempt to reduce fracture Hematoma block was performed, attempt made to reduce fracture, repeat x-ray shows partial reduction, will need full reduction tomorrow, Dr. Copeland will take patient to the operating room Remains neurovascularly intact, placed in a Ortho-Glass splint, examined pre and post application and remains neurovascularly intact throughout this encounter Return precautions reviewed and patient expressed understanding Oxycodone for home as needed pain Medical Records Medical records reviewed: Yes I reviewed the patient's medical records. HPI General Date/Time Provider Initiated Documentation: 10/19/22 17:05 . HPI Narrative: This 57-year-old female with history of portal hypertension, splenomegaly, gastric varices, protein C deficiency presents with report of injury to left wrist, this is prior to arrival, fell into post. Denies any additional i njuries. Event occurred just prior to arrival. Denies any strength or sensation change. Related Data Home Medications Medication Instructions Recorded Confirmed biotin 5 mg tablet 5 mg PO DAILY 09/19/16 10/19/22 folic acid 1 mg tablet 1 mg PO DAILY 09/19/16 10/19/22 multivitamin (Daily Multi-Vitamin 1 ea PO DAILY 09/19/16 10/19/22 tablet) [id number]-[id number]-Sw-lhmuu-nzfe-boron 1 ea PO TID 09/28/16 10/19/22 600 mg-200 unit-40 mg-7.5 mg tablet coenzyme Q10 100 mg capsule 100 mg PO DAILY 04/08/18 10/19/22 (CoQ-10) omega-3 fatty acids 1,000 mg 1,000 mg PO BID 07/23/18 10/19/22 capsule (Super Benson-3) ascorbic acid (vitamin C) 1,000 mg 1,000 mg PO DAILY PRN ##2 10/22/18 10/19/22 tablet (Vitamin C) milk thistle seed extract 140 2 cap PO 07/10/19 10/06/22 mg-milk thistle 500 mg capsule lactulose 10 gram/15 mL oral 10 g (15 mL) PO BID PRN ammonia 09/28/20 10/19/22 solution level #946 mL aspirin 81 mg tablet,delayed 81 mg PO DAILY 02/02/21 10/19/22 release (Enteric Coated Aspirin) Lysine-L PO DAILY 02/08/21 10/06/22 liver detox PO QDAY PRN 02/08/21 10/06/22 junaid.stocking,thigh,reg,med #2 ea 07/05/21 10/06/22 compress.stocking,knee,reg,med #2 ea 07/05/21 10/06/22 melatonin 3 mg capsule 3 - 6 mg PO HS PRN sleep #60 caps 05/04/22 10/19/22 omeprazole 20 mg capsule,delayed 20 mg PO DAILY #90 tab-caps 08/02/22 10/19/22 release propranolol 10 mg tablet 10 mg PO BID #180 tabs 08/02/22 10/19/22 spironolactone 50 mg tablet 50 mg PO DAILY #90 tab-caps 08/02/22 10/19/22 furosemide 40 mg tablet 40 mg PO DAILY #90 tabs 08/03/22 10/19/22 zinc 50 mg tablet 50 mg PO .QOD 08/03/22 10/19/22 efinaconazole 10 % topical See Rx Instructions .Route 08/30/22 10/19/22 solution with applicator (Jublia) .COMPLEX #8 mL mupirocin 2 % topical ointment 1 applic topical BID-TID #15 grams 09/14/22 10/19/22 Previous Rx's Medication Instructions Recorded lactulose 10 gram/15 mL oral 10 g (15 mL) PO BID PRN ammonia 09/28/20 solution level #946 mL junaid.stocking,thigh,reg,med #2 ea 07/05/21 compress.stocking,knee,reg,med #2 ea 07/05/21 melatonin 3 mg capsule 3 - 6 mg PO HS PRN sleep #60 caps 05/04/22 omeprazole 20 mg capsule,delayed 20 mg PO DAILY #90 tab-caps 08/02/22 release propranolol 10 mg tablet 10 mg PO BID #180 tabs 08/02/22 spironolactone 50 mg tablet 50 mg PO DAILY #90 tab-caps 08/02/22 furosemide 40 mg tablet 40 mg PO DAILY #90 tabs 08/03/22 efinaconazole 10 % topical See Rx Instructions .Route 08/30/22 solution with applicator (Jublia) .COMPLEX #8 mL mupirocin 2 % topical ointment 1 applic topical BID-TID #15 grams 09/14/22 Allergies Allergy/AdvReac Type Severity Reaction Status Date / Time ciprofloxacin Allergy Intermediate Itching Verified 10/19/22 16:22 General Stated Complaint: Orthopedic KILLIAN: 4 PFSH All Active Problems (Updated 10/19/22 @ 20:41 by UNRULY Doll) Fracture of wrist (Acute) Umbilical hernia (Acute ~09/2022) Abnormal ultrasound of abdomen (Acute ~08/2022) Umbilical mass (Acute ~08/2022) Impaired fasting glucose (Chronic ~03/2022) Venous insufficiency (chronic) (peripheral) (Acute 12/30/20) bilateral LE, compression stockings 30MM, Dr Clark Osteoarthritis of foot, right (Chronic 12/30/20) Varicose veins of both lower extremities (Chronic) Trigger finger of right hand (Acute) Ring Finger Seasonal allergies (Chronic) Herpes simplex virus (HSV) infection (Acute) Hypertension (Acute 02/12/15) Splenomegaly (Acute 08/19/14) Portal hypertension syndrome (Acute 03/16/15) esophageal varices, gastric varices, portal colopathy 02/18/18 Upper Gi Endoscopy at [facility] (Dr Hernandez)\ 09/15/21 UGI- [place] hypertensive gastropathy Obesity (Chronic 02/15/15) Hypercoagulable state (Acute 03/02/11) Hematology [facility]; ASA for DVT prophylaxis due to hx variceal bleeding clotting disorder: Prolonged PT & PTT and mild hypofibrinogenemia which may be a consequence of underlying liver disease. No evidence for presence of common hereditary or acquired hematologic risk factors associated with arterial thromboembolism; DVT ; multiple (16) losses in 1st trimester Gastric varices (Acute 09/02/13) GERD (gastroesophageal reflux disease) (Acute 02/12/15) Esophageal varices (Acute 03/02/11) 09/15/21 UGI- small <5mm esophageal varice Cryptogenic cirrhosis of liver (Chronic) No hx of heavy ETOH use. liver biopsy in [place] Ascites (Acute 01/07/13) noted on US. 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 Homa Hernandez-[facility] Impression: Small (<5mm) esophageal varices; Portal hyper tensive gastropathy; Type 2 gastroesophageal varcies (GOV2, esophageal varcies which extend along the fundus); Normal examined duodenum; No specimens collected. Endoscopy (12/06/12) Dr Mcdowell @ [facility] Endoscopy 09/02/2013, 09/03/2013,09/11/2013,04/02/2014 04/19/15 04/17/16-Dr Hernandez-[facility] Hx of endoscopy (~09/13/20) ,5 mm varices in lower 3rd of esophagus. extensive scarring from prior bandings. Moderate portal hypertensive gastropathy in stomach. Nl duodenum. Tonsillectomy 1976 Upper GI endoscopy w/ bx (11/28/16) Family History Mother Leukemia Father Essential hypertension Melanoma Brother Essential hypertension Maternal Grandmother Colon cancer Social History Smoking/Tobacco Use Status: Never Smoking risk assessment performed?: Yes Alcohol Intake: never Drug use: Never Substance use type: does not use Adopted: No Caregiver/Support person: No Foster care: No Household members: none Housing: apartment Number of Children: 0 Communication Needs: Corrective Lenses Education Level: college Do you need help understanding health information?: Rarely current occupation: Works for [employer] - [employer] Pets and animals: No Sexually active: No Do you think of yourself as: straight/heterosexual Current gender identity: female What is your relationship status?: How often do you talk on the phone with friends or family?: three or more times per week How often do you get together with friends or relatives?: once per week How often do you attend anabaptism or oriental orthodox services?: 4 or more times per year Do you belong to any clubs or organized social groups?: no Panel score (0-1 are the most socially isolated patients): 2 What type of physical activity do you participate in: yoga Duration: 45-60 minutes/day Frequency: 1-2 times per week Joan/Taoist: Catholic Special joan needs: No Agree to transfusion: No Seatbelt use: always Helmet use: Yes Drive intox or ride w/intox driver utility worker: No Working smoke detector in home: Yes Fire extinguisher in home: Yes Carbon monox detector in home: Yes Do you feel safe at home: Yes Do you feel safe in your relationship?: Yes Exam Narrative Exam Narrative: Left wrist with obvious deformity, neurovascularly intact, no tenderness to left elbow or left shoulder, no open fracture Course Vital Signs Vital signs: Vital Signs Temperature 36.8 C 10/19/22 16:18 Pulse 72 10/19/22 16:18 Respiratory Rate 16 10/19/22 16:18 Blood Pressure 127/74 10/19/22 16:18 Pulse Oximetry 96 10/19/22 16:18 Temperature 36.8 C 10/19/22 16:18 Temperature Source Skin 10/19/22 16:18 Pulse 72 10/19/22 16:18 Respiratory Rate 16 10/19/22 16:18 Respiratory Effort Normal 10/19/22 16:43 Blood Pressure 127/74 10/19/22 16:18 Blood Pressure Position Sitting 10/19/22 16:18 Pulse Oximetry 96 10/19/22 16:18 Oxygen Delivery Method Room Air 10/19/22 16:18 Oxygen Flow Rate 0 10/19/22 16:18 Pain Level 2 10/19/22 20:15 Procedures Orthopedic Joint Reduction Joint #1: Time Out Performed: Yes Side: left Joint Reduction Location: wrist Analgesia: hematoma block Local Anesthesia: Lidocaine 1% and Bupivicaine 0.25% Amount of anesthesic used (mL): 10 Technique used: direct manipulation Post-reduction neuro exam: intact Post-reduction vascular: intact Post Reduction X-Ray Obtained: Yes Post Reduction X-Ray Results: other (partial reduction ) Splint Applied: Yes Patient Tolerated Procedure: well
== END 2022-10-19 20:53 | disposition home or self-care (01) ==
PROVIDERS: Emergency Provider Physician Assistant; PCP Nurse Practitioner Adult Health
DX: S52.502A Unspecified fracture of the lower end of left radius, initial encounter for closed fracture (principal); I10 Essential (primary) hypertension; Z86.718 Personal history of other venous thrombosis and embolism; W19.XXXA Unspecified fall, initial encounter
CPT/HCPCS: 96372; 99284; 25605; 73110; J2270

== ENCOUNTER 2022-10-20 11:46 | Day surgery (SDC) | payer MEDICARE, MEDICAID, SELFPAY ==
--- NOTE | 2022-10-20 09:53 | W.ANESPRE ---
General Info Date of Service Date Performed: 10/20/22 Height: 5 ft 3 in Weight: 97.069 kg Body Mass Index (BMI): 37.9 Surgical Procedure: Operation Date: 10/20/22 13:25 Proposed Procedure Side Surgeon p Closed Reduction of Wrist Left Julio César Copeland MD Meds Allergies and Home Medications Allergies Allergy/AdvReac Type Severity Reaction Status Date / Time ciprofloxacin Allergy Intermediate Itching Verified 10/20/22 12:46 Home Medication Medication Instructions Recorded biotin 5 mg tablet 5 mg PO DAILY 09/19/16 folic acid 1 mg tablet 1 mg PO DAILY 09/19/16 multivitamin (Daily Multi-Vitamin 1 ea PO DAILY 09/19/16 tablet) [id number]-[id number]-akr-Le-kdgip-pfdc-boron 1 ea PO TID 09/28/16 600 mg-200 unit-40 mg-7.5 mg tablet coenzyme Q10 100 mg capsule 100 mg PO DAILY 04/08/18 (CoQ-10) omega-3 fatty acids 1,000 mg 1,000 mg PO BID 07/23/18 capsule (Super [place]-3) ascorbic acid (vitamin C) 1,000 mg 1,000 mg PO DAILY PRN ##2 10/22/18 tablet (Vitamin C) milk thistle seed extract 140 2 cap PO DIRECTED 07/10/19 mg-milk thistle 500 mg capsule lactulose 10 gram/15 mL oral 10 g (15 mL) PO BID PRN ammonia 09/28/20 solution level #946 mL aspirin 81 mg tablet,delayed 81 mg PO DAILY 02/02/21 release (Enteric Coated Aspirin) Lysine-L PO DAILY 02/08/21 liver detox PO QDAY PRN 02/08/21 junaid.stocking,thigh,reg,med #2 ea 07/05/21 compress.stocking,knee,reg,med #2 ea 07/05/21 melatonin 3 mg capsule 3 - 6 mg PO HS PRN sleep #60 caps 05/04/22 omeprazole 20 mg capsule,delayed 20 mg PO DAILY #90 tab-caps 08/02/22 release propranolol 10 mg tablet 10 mg PO BID #180 tabs 08/02/22 spironolactone 50 mg tablet 50 mg PO DAILY #90 tab-caps 08/02/22 furosemide 40 mg tablet 40 mg PO DAILY #90 tabs 08/03/22 zinc 50 mg tablet 50 mg PO .QOD 08/03/22 efinaconazole 10 % topical See Rx Instructions .Route 08/30/22 solution with applicator (Jublia) .COMPLEX #8 mL mupirocin 2 % topical ointment 1 applic topical BID-TID #15 grams 09/14/22 oxycodone 5 mg tablet 5 mg PO DIRECTED 10/20/22 PFS Active Problems Active Problems: Problem Status Onset Code Anxiety and depression 02/12/15 F41.9, F32.9 Arthritis 02/12/15 M19.90 Ascites 01/07/13 R18.8 Cryptogenic cirrhosis of liver K74.69 Esophageal varices 03/02/11 I85.00 GERD (gastroesophageal reflux disease) 02/12/15 K21.9 Gastric varices 09/02/13 I86.4 Hypercoagulable state 03/02/11 D68.59 Obesity 02/15/15 E66.9 Portal hypertension syndrome 03/16/15 K76.6 Splenomegaly 08/19/14 R16.1 Hypertension 02/12/15 I10 Herpes simplex virus (HSV) infection B00.9 Seasonal allergies J30.2 Trigger finger of right hand M65.30 Varicose veins of both lower extremities I83.93 Osteoarthritis of foot, right 12/30/20 M19.071 Venous insufficiency (chronic) (peripheral) 12/30/20 I87.2 Impaired fasting glucose ~03/2022 R73.01 Umbilical mass ~08/2022 R19.09 Abnormal ultrasound of abdomen ~08/2022 R93.5 Umbilical hernia ~09/2022 K42.9 Fracture of wrist S62.109A Medical History Medical History Acute posthemorrhagic anemia (09/04/13) Cholelithiasis (08/19/14) Contusion of right knee, initial encounter (09/22/15) Deep vein thrombosis Family history of malignant melanoma HE (hepatic encephalopathy) (09/02/13) Lactulose Rifaximin Portal vein thrombosis (02/12/12) portal hypertension portal vein, SMV and splenic vein since 2006 and also noted on US 01/2012 Refusal of blood transfusions as patient is Buddhist 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 H[place] Impression: Small (<5mm) esophageal varices; Portal hyper tensive gastropathy; Type 2 gastroesophageal varcies (GOV2, esophageal varcies which extend along the fundus); Normal examined duodenum; No specimens collected. Endoscopy (12/06/12) Dr Mcdowell @ [facility] Endoscopy 09/02/2013, 09/03/2013,09/11/2013,04/02/2014 04/19/15 04/17/16-Dr Hernandez[place] Hx of endoscopy (~09/13/20) ,5 mm varices in lower 3rd of esophagus. extensive scarring from prior bandings. Moderate portal hypertensive gastropathy in stomach. Nl duodenum. Tonsillectomy 1976 Upper GI endoscopy w/ bx (11/28/16) Tobacco Smoking/Tobacco Use Status: Never Passive smoking exposure: No Alcohol Alcohol Intake: never Substance Use Substance use: Never Substance use type: does not use Vital Signs and Lab Results Lab Results Blood Type / Crossmatch: No Data to Display Complete Blood Count: No Data to Display Complete Metabolic Panel: No Data to Display Liver Function Panel: No Data to Display Coagulation Panel: No Data to Display Cardiac Panel: No Data to Display Arterial Blood Gas: No Data to Display Venous Blood Gas: No Data to Display Pancreas Panel: No Data to Display Thyroid Panel: No Data to Display Infectious Disease: No Data to Display Blood Cultures: No Data to Display Toxicology Panel: No Data to Display Anesthesia Assessment and Plan Anesthesia History Personal History: No History of Anesthesia Complications Family History: No Family History of Anesthesia Complications Exercise Tolerance Exercise Tolerance: Metabolic Equivalents>4 Pertinent Negatives Pertinent Negatives: No Symptoms of GERD Cardiac & Pulmonary Exam Cardiac Exam: Normal S1/S2 Heart Sounds Pulmonary Exam: Clear Bilateral Breath Sounds Implantable Cardiac Device Does patient have a Pacemaker or an ICD?: No Airway Exam Known Difficult Airway: No Mallampati Class: 1 Mouth Opening: Normal (> 3cm) Thyromental Distance: Greater than 3 cm Neck Range of Motion: Full ROM Neck Circumference: Normal Teeth Condition: Normal Dentition ASA Classification ASA Score: ASA 3 Emergency Case?: No NPO Status NPO Status: NPO Clear Liquids>2 hours Anesthesia Plan Resuscitation Status: Full Code Anesthesia Technique: General Anesthesia Airway Planned: Natural Airway Monitors Used: Standard Monitors Preoperative Comments:: 57 yo female for closed reduction of wrist fx. Sig PMHx: HTN, GERD, portal hypertension/cirrhosis/portal vein thrombosis, ascites, esophageal varices (previous bleeds, banding), remote DVT, anxiety/depression. Previous Anes: - egd, dhmc, prop, natural airway, no issues.
--- NOTE | 2022-10-20 11:20 | OCONE_ITS ---
Date of service: 10/20/22 Time of Service: 13:40 History of Present Illness Narrative: Gardening yesterday fall mechanically left side with isolated left wrist deformity swelling discomfort. Unsuccessful reduction attempts hematoma block in the emergency department. Here today for more definitive management. Pre- existing medical issues as detailed in EMR. Denies any other injuries except minor to the left knee. States she has high risk for any surgery and has been treated nonoperatively for umbilical or ventral hernia recently. Consult Reason Displaced left wrist fractures Assessment and Plan Assessment and plan (1) Displaced fracture of distal end of left radius: Status: Acute Assessment and plan: 57-year-old female with left displaced distal radius and ulnar styloid fractures Mechanical fall yesterday. Unsuccessful hematoma block reduction in the emerg ency department last night. Remains moderately dorsally angulated with significant posterior translation. Possible non-displaced intra-articular extension between the scaphoid and lunate facets. Discussed thoroughly. Recommend closed reduction with sugar-tong splint. Appropriately monitor alignment. Staged ORIF if becomes necessary. Decision to proceed with Left distal radius closed reduction under anesthesia. The risks, benefits, and alternatives were thoroughly discussed. Patient was counseled regarding pain management, expected postoperative course, and recovery timeline. All questions were answered. Informed consent was obtained. Agree and understand treatment plan. Follow up 10-14 days after surgery. Will call if any changes or concerns. Breathing comfortably on room air. No coughs or wheezes. 2+ right radial pulse. Regular rate and rhythm. PFSH All Active Problems Displaced fracture of distal end of left radius (Acute 10/19/22) Anxiety and depression (Chronic 02/12/15) Arthritis (Acute 02/12/15) Ascites (Acute 01/07/13) noted on US. Tx with Aldactone and Lasix Cryptogenic cirrhosis of liver (Chronic) No hx of heavy ETOH use. liver biopsy 1989' in [place] Esophageal varices (Acute 03/02/11) 09/15/21 UGI- small <5mm esophageal varice GERD (gastroesophageal reflux disease) (Acute 02/12/15) Gastric varices (Acute 09/02/13) Hypercoagulable state (Acute 03/02/11) Hematology [facility]; ASA for DVT prophylaxis due to hx variceal bleeding clotting disorder: Prolonged PT & PTT and mild hypofibrinogenemia which may be a consequence of underlying liver disease. No evidence for presence of common hereditary or acquired hematologic risk factors associated with arterial thromboembolism; DVT ; multiple (16) losses in 1st trimester Obesity (Chronic 02/15/15) Portal hypertension syndrome (Acute 03/16/15) esophageal varices, gastric varices, portal colopathy 02/18/18 Upper Gi Endoscopy at [facility] (Dr Hernandez)\ 09/15/21 UGI- [place] hypertensive gastropathy Splenomegaly (Acute 08/19/14) Hypertension (Acute 02/12/15) Herpes simplex virus (HSV) infection (Acute) Seasonal allergies (Chronic) Trigger finger of right hand (Acute) Ring Finger Varicose veins of both lower extremities (Chronic) Osteoarthritis of foot, right (Chronic 12/30/20) Venous insufficiency (chronic) (peripheral) (Acute 12/30/20) bilateral LE, compression stockings 30MM, Dr Clark Impaired fasting glucose (Chronic ~03/2022) Umbilical mass (Acute ~08/2022) Abnormal ultrasound of abdomen (Acute ~08/2022) Umbilical hernia (Acute ~09/2022) Fracture of wrist (Acute) Medical History Acute posthemorrhagic anemia (09/04/13) Cholelithiasis (08/19/14) Contusion of right knee, initial encounter (09/22/15) Deep vein thrombosis Family history of malignant melanoma HE (hepatic encephalopathy) (09/02/13) Lactulose Rifaximin Portal vein thrombosis (02/12/12) portal hypertension portal vein, SMV and splenic vein since 2006 and also noted on US 01/2012 Refusal of blood transfusions as patient is Confucianism 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 Homa Hernandez-[facility] Impression: Small (<5mm) esophageal varices; Portal hyper tensive gastropathy; Type 2 gastroesophageal varcies (GOV2, esophageal varcies which extend along the fundus); Normal examined duodenum; No specimens collected. Endoscopy (12/06/12) Dr Mcdowell @ [facility] Endoscopy 09/02/2013, 09/03/2013,09/11/2013,04/02/2014 04/19/15 04/17/16-Dr Hernandez-[facility] Hx of endoscopy (~09/13/20) ,5 mm varices in lower 3rd of esophagus. extensive scarring from prior bandings. Moderate portal hypertensive gastropathy in stomach. Nl duodenum. Tonsillectomy 1976 Upper GI endoscopy w/ bx (11/28/16) Family History Mother Leukemia Father Essential hypertension Melanoma Brother Essential hypertension Maternal Grandmother Colon cancer Social History Smoking/Tobacco Use Status: Never Smoking risk assessment performed?: Yes Alcohol Intake: never Drug use: Never Substance use type: does not use Adopted: No Caregiver/Support person: No Foster care: No Household members: none Housing: apartment Number of Children: 0 Communication Needs: Corrective Lenses Education Level: college Do you need help understanding health information?: Rarely current occupation: Works for school - [employer] Pets and animals: No Sexually active: No Do you think of yourself as: straight/heterosexual Current gender identity: female What is your relationship status?: How often do you talk on the phone with friends or family?: three or more times per week How often do you get together with friends or relatives?: once per week How often do you attend faith or lutheran services?: 4 or more times per year Do you belong to any clubs or organized social groups?: no Panel score (0-1 are the most socially isolated patients): 2 What type of physical activity do you participate in: yoga Duration: 45-60 minutes/day Frequency: 1-2 times per week Joan/Rastafari: Confucianism Special joan needs: No Agree to transfusion: No Seatbelt use: always Helmet use: Yes 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 Somewhat tight around the thumb and fingers. Mild distal edema. Brisk cap refill. Guarded, but does weakly demonstrate flexion extension thumb and all fingers. Exposed fingertips sensation intact without paresthesias. Comfortable at rest no distress. No carpal tunnel symptoms or compartment syndrome. Denies discomfort other extremities and shows motion without deformity to elbow and shoulder on both sides. Left knee minor bruising described by patient.
--- NOTE | 2022-10-20 11:20 | W.PM.OP ---
Date of service: 10/20/22 Time of Service: 14:15 Operative Note Operative Note DATE OF PROCEDURE: 10/20/22 PRE-OP DIAGNOSIS: Displaced left distal radius and ulnar styloid fractures POST-OP DIAGNOSIS: same PROCEDURE: Left distal radius closed reduction under anesthesia, CPT #80475 SURGEON: Julio César Copeland ANESTHESIA TYPE: General:No Airway Refer to Anesthesia Record COMPLICATIONS: None Patient was transported to: same day Patient's condition: stable Indications: Please see complete medical record for details. Procedure Description: In the operating room, general anesthesia was induced. The patient was positioned supine on the stretcher. All bony prominences were well-padded. Preoperative antibiotics were omitted. The correct patient, procedure, and side of the procedure were all verified prior to beginning. Left wrist was examined. There was obvious dorsal angulation deformity. Prior puncture site from hematoma block otherwise skin intact. Compartments soft. 1+ distal radial pulse. The single seaming machine operator reduction maneuver was used steady in the extremity, slightly exaggerated deformity followed by traction, and then a volar directed reduction force. There was a palpable reduction and setting of the fracture. Visibly the wrist was well aligned. X-ray confirmed excellent alignment. A plaster sugar-tong splint was then applied to the extremity and appropriately molded to maintain reduction. Final x-rays confirmed appropriate alignment in splint. Neurovascular exam was intact following manipulation. The patient awoke from anesthesia without complication and was transferred back to day surgery in a stable condition.
--- NOTE | 2022-10-20 11:21 | PDOC.DSDIS_ITS ---
Date of service: 10/20/22 Time of Service: 15:30 Discharge Plan Disposition Patient Disposition: Home Discharge Details Reason For Visit: (L) WRIST FX Attending Provider: Julio César Copeland Primary Care Provider: Yue Min Home Meds and New Rx's Prescriptions: Continued liver detox PO QDAY PRN Patient Comments: tea form aspirin [Enteric Coated Aspirin] 81 mg tablet,delayed release (DR/EC) 81 mg PO DAILY Lysine-L PO DAILY Patient Comments: take 1 tablet mupirocin 2 % ointment 1 applic topical BID-TID Qty: 15 0RF Rx Instructions: May substitute with cream if less expensive; apply thin layer until area/lesion resolved omega-3 fatty acids [Super [place]-3] 1,000 mg capsule 1,000 mg PO BID zinc 50 mg tablet 50 mg PO .QOD (DME) compress.stocking,knee,reg,med Misc See Dose Instructions .ROUTE .MEDSUPPLY Qty: 2 3RF Dose Instruction: As directed Rx Instructions: Apply in AM, remove in PM (DME) junaid.stocking,thigh,reg,med Misc See Dose Instructions .ROUTE .MEDSUPPLY Qty: 2 2RF Dose Instruction: As directed Rx Instructions: Apply in AM, remove in PM; furosemide 40 mg tablet 40 mg PO DAILY Qty: 90 3RF melatonin 3 mg capsule 3 - 6 mg PO HS PRN (Reason: sleep) Qty: 60 1RF multivitamin [Daily Multi-Vitamin] 1 EACH tablet 1 ea PO DAILY folic acid 1 MG tablet 1 mg PO DAILY biotin 5 MG tablet 5 mg PO DAILY [id number]-cto-jfrt-bor 1 EACH tablet 1 ea PO TID Rx Instructions: 500MG/250MG/200U [facility] [place] 09/20/16 CGC coenzyme Q10 [CoQ-10] 100 mg capsule 100 mg PO DAILY Patient Comments: 04/08/18 Pt taking 200 mg daily. mk ascorbic acid (vitamin C) [Vitamin C] 1,000 mg tablet 1,000 mg PO DAILY PRNQty: 2 milk thist seed ext-milk thist 140-500 mg capsule 2 cap PO DIRECTED Patient Comments: milk thistle,dandelion,vit c,artichoke,green beets. lactulose 10 gram/15 mL solution 10 g PO BID PRN (Reason: ammonia level) Qty: 946 12RF omeprazole 20 mg capsule,delayed release(DR/EC) 20 mg PO DAILY Qty: 90 3RF propranolol 10 mg tablet 10 mg PO BID Qty: 180 3RF spironolactone 50 mg tablet 50 mg PO DAILY Qty: 90 3RF Jublia 10 % solution with applicator See Rx Instructions .ROUTE .COMPLEX Qty: 8 1RF Dose Instruction: APPLY TOPICALLY TO THE AFFECTED AREA DAILY FOR 48 WEEKS Rx Instructions: APPLY TOPICALLY TO THE AFFECTED AREA DAILY FOR 48 WEEKS oxycodone 5 mg Tablet 5 mg PO DIRECTED Discharge Instructions Additional Instructions: Surgery: Left distal radius closed reduction under anesthesia Activity: Nonweightbearing left wrist. Recommend elevation to minimize swelling and discomfort. Wiggle fingers and thumb to prevent stiffness and increase circulation. May use hand for light manual tasks. Prescriptions: No new. You may use [id number] pain medications (that are safe for you to use medically) as needed Dressings: Leave splint and dressing in place until follow-up. Keep clean and dry at all times. Follow-up: 10-[address] Copeland You may take off the leg compression stockings this evening at home. You may also leave them on a few days longer if you have a history of leg swelling or edema. Let us know right away if you develop any redness, drainage, fevers, chest pain, or trouble breathing. Do not drink alcohol or drive for at least 24 hours after anesthesia. Please call the office during business hours with any questions or concerns. DS: Diagnosis Discharge Diagnosis (1) Displaced fracture of distal end of left radius: Status: Acute
[2022-10-20 12:29] VITALS: BP 101/69; PULSE 68; RESP 16; TEMP 36.7; O2SAT 96
[2022-10-20] MEDS: Lactated Ringers 1,000 ML 30 ML IV (12:50)
[2022-10-20 13:30] VITALS: BMI 37.9
--- NOTE | 2022-10-20 14:14 | DI.RAD_ITS ---
Exam(s) XR WRIST LT LIMITED EXAM: XR WRIST LT LIMITED CLINICAL HISTORY: LEFT WRIST FRACTURE. TECHNIQUE: 2D and realtime digital imaging was performed. COMPARISON: CR,XR XR WRIST LT COMPLETE from 10/19/2022 FINDINGS: Hard copy images showed improved alignment of the distal radial fracture. Please see procedure note for details. Fluoro time: 4.3 seconds RADIATION DOSE DELIVERED: chad Bauer=0.08 mGy
[2022-10-20 14:24] VITALS: BP 108/68; PULSE 70; RESP 16; TEMP 36.5; O2SAT 96
--- NOTE | 2022-10-20 14:45 | W.ANESPOSTOP ---
Postoperative Evaluation Date, Time and Location Date Performed: 10/20/22 Time Performed: 14:45 Patient Location: Day Surgery Unit Vital Signs Most Recent Imported Vital Signs: Most Recent Vital Signs Temp Pulse Resp BP Pulse Ox 36.5 C 70 16 108/68 96 10/20/22 14:24 10/20/22 14:24 10/20/22 14:24 10/20/22 14:24 10/20/22 14:24 Pain Score Most Recent Pain Score: Most Recent Pain Score Pain Level 4 10/20/22 14:24 Assessment Mental Status: Awake (Alert & Oriented to Patient Baseline) Airway and Respiratory Function: Patent airway with normal (patient baseline) respiratory exam Cardiovascular Function: Hemodynamically Stable Hydration Status: Adequately Hydrated Nausea & Vomiting: No Nausea or Vomiting Pain: Pain is tolerable per patient Peripheral Nerve Block: Patient did not receive a nerve block
[2022-10-20 15:00] VITALS: BP 107/60; PULSE 66; RESP 16; TEMP 37.2; O2SAT 97
[2022-10-20] MEDS: oxyCODONE 5 MG TAB PO (15:04)
== END 2022-10-20 15:35 | disposition home or self-care (01) ==
PROVIDERS: PCP Nurse Practitioner Adult Health; Visit Provider Student in an Organized Health Care Education/Training Program
PROC: (CPT 25605; principal; 2022-10-20 13:15)
DX: W19.XXXA Unspecified fall, initial encounter (principal); F41.8 Other specified anxiety disorders; K74.69 Other cirrhosis of liver; I10 Essential (primary) hypertension; Z86.718 Personal history of other venous thrombosis and embolism; S52.592A Other fractures of lower end of left radius, initial encounter for closed fracture; S52.612A Displaced fracture of left ulna styloid process, initial encounter for closed fracture
CPT/HCPCS: 25605; 81025; 73100; J2704

== ENCOUNTER 2022-11-01 10:43 | Outpatient (CLI) | payer MEDICARE, MEDICAID, SELFPAY ==
--- NOTE | 2022-11-01 10:30 | DI.RAD_ITS ---
Exam(s) XR WRIST LT LIMITED EXAM: XR WRIST LT LIMITED INDICATION: f/u fx. COMPARISON: CR,XR XR WRIST LT COMPLETE from 10/19/2022 TECHNIQUE: 2D digital imaging was performed. Two views. FINDINGS: The cast has been removed. There has been no change in the alignment of the distal radial and ulnar styloid fractures. No new abnormalities are seen. DATA REPOSITORY: RADIATION DOSE DELIVERED:
== END 2022-11-01 10:44 | disposition home or self-care (01) ==
LOC: DIORS 10:43
PROVIDERS: PCP Nurse Practitioner Adult Health; Referring Provider Nurse Practitioner Adult Health; Visit Provider Physician Assistant
DX: S52.502A Unspecified fracture of the lower end of left radius, initial encounter for closed fracture (principal); S52.592D Other fractures of lower end of left radius, subsequent encounter for closed fracture with routine healing; S52.612D Displaced fracture of left ulna styloid process, subsequent encounter for closed fracture with routine healing; X58.XXXD Exposure to other specified factors, subsequent encounter
CPT/HCPCS: 73100

== ENCOUNTER 2022-11-29 15:38 | Outpatient (CLI) | payer MEDICARE, MEDICAID, SELFPAY ==
--- NOTE | 2022-11-29 14:39 | DI.RAD_ITS ---
Exam(s) XR WRIST LT LIMITED EXAM: XR WRIST LT LIMITED CLINICAL HISTORY: WRIST FX F/U. TECHNIQUE: 2D digital imaging was performed of the left wrist. Two images were obtained. PA and la teral views were obtained. COMPARISON: CR XR WRIST LT LIMITED from 11/01/2022 FINDINGS: BONES: There is no change in alignment of the fracture through the base of the ulnar styloid process. There is also been no change in alignment of the fracture of the distal metaphysis of the left radi us. Increased sclerosis is seen about the fracture site suggesting some interval healing. No new fr acture is seen. No bony destructive lesion is seen. The bones are osteopenic which suggest decreased use. JOINTS: The carpal bones are normally aligned. The joint spaces are well maintained. SOFT TISSUE: Soft tissue swelling of the wrist. IMPRESSION: Stable alignment of the distal radial and ulnar fractures. DATA REPOSITORY: RADIATION DOSE DELIVERED:
== END 2022-11-29 15:39 | disposition home or self-care (01) ==
LOC: DIORS 15:38
PROVIDERS: PCP Nurse Practitioner Adult Health; Referring Provider Nurse Practitioner Adult Health; Visit Provider Student in an Organized Health Care Education/Training Program
DX: S52.592D Other fractures of lower end of left radius, subsequent encounter for closed fracture with routine healing (principal); X58.XXXD Exposure to other specified factors, subsequent encounter
CPT/HCPCS: 73100

== ENCOUNTER 2022-12-09 20:28 | Emergency (ER) | payer MEDICARE, MEDICAID, SELFPAY ==
--- NOTE | 2022-12-09 20:29 | W.ED.GENAD ---
Discharge Plan Disposition Patient Disposition: Home Condition: Good Discharge Details Clinical Impression: Tick bite with subsequent removal of tick Primary Care Provider: Yue Min ED Provider: Carlito Degroot Meds and New Rx's Prescriptions: Continued liver detox PO QDAY PRN Patient Comments: tea form aspirin [Enteric Coated Aspirin] 81 mg tablet,delayed release (DR/EC) 81 mg PO DAILY Lysine-L PO DAILY Patient Comments: take 1 tablet lactulose 10 gram/15 mL solution 10 g PO BID PRN (Reason: ammonia level) Qty: 946 12RF melatonin 3 mg capsule 3 - 6 mg PO HS PRN (Reason: sleep) Qty: 60 1RF Patient Comments: not taking (DME) junaid.stocking,thigh,reg,med Misc See Dose Instructions .ROUTE .MEDSUPPLY Qty: 2 2RF Dose Instruction: As directed Rx Instructions: Apply in AM, remove in PM; omega-3 fatty acids [Super [place]-3] 1,000 mg capsule 1,000 mg PO BID zinc 50 mg tablet 50 mg PO .QOD (DME) compress.stocking,knee,reg,med Misc See Dose Instructions .ROUTE .MEDSUPPLY Qty: 2 3RF Dose Instruction: As directed Rx Instructions: Apply in AM, remove in PM furosemide 40 mg tablet 40 mg PO DAILY Qty: 90 3RF multivitamin [Daily Multi-Vitamin] 1 EACH tablet 1 ea PO DAILY folic acid 1 MG tablet 1 mg PO DAILY biotin 5 MG tablet 5 mg PO DAILY [id number]-blmy-atw-bgww-bor 1 EACH tablet 1 ea PO TID Rx Instructions: 500MG/250MG/200U [facility] 09/20/16 CGC coenzyme Q10 [CoQ-10] 100 mg capsule 100 mg PO DAILY Patient Comments: 04/08/18 Pt taking 200 mg daily. mk ascorbic acid (vitamin C) [Vitamin C] 1,000 mg tablet 1,000 mg PO DAILY PRNQty: 2 milk thist seed ext-milk thist 140-500 mg capsule 2 cap PO DIRECTED Patient Comments: not taking omeprazole 20 mg capsule,delayed release(DR/EC) 20 mg PO DAILY Qty: 90 3RF propranolol 10 mg tablet 10 mg PO BID Qty: 180 3RF spironolactone 50 mg tablet 50 mg PO DAILY Qty: 90 3RF Jublia 10 % solution with applicator See Rx Instructions .ROUTE .COMPLEX Qty: 24 1RF Dose Instruction: APPLY TOPICALLY TO THE AFFECTED AREA DAILY FOR 48 WEEKS Rx Instructions: APPLY TOPICALLY TO THE AFFECTED AREA DAILY FOR 48 WEEKS loratadine 10 mg tablet 10 mg PO DAILY PRN (Reason: allergy symptoms) Qty: 90 1RF Discharge Instructions Instructions: Tick Bite (ED) Additional Instructions: This tick is not one that carries Lyme or other diseases. Keep the area clean and dry. Watch for any worsening pain, redness, swelling which would suggest a subsequent superinfection. If this occurs follow-up with primary care or return to ED. Medical Decision Making Patient presenting for embedded tick. Tick is noted to be documented and not likely to carry any rickettsial diseases. Tick is removed without difficulty using tick blue. It was removed in its entirety. Patient was discharged home with return precautions. HPI General Mode of arrival: ambulatory. Date/Time Provider Initiated Documentation: 12/09/22 20:29. Limitations to Documentation: no limitations. Information obtained by: patient. HPI Narrative: Patient presents to ED with tick embedded in her posterior scalp. Patient noticed some discomfort back there this evening. Went to her friend who told her there was a tick present. She would not allow him to remove the tick. She presents here to have the tick removed. Related Data Home Medications Medication Instructions Recorded Confirmed biotin 5 mg tablet 5 mg PO DAILY 09/19/16 12/09/22 folic acid 1 mg tablet 1 mg PO DAILY 09/19/16 12/09/22 multivitamin (Daily Multi-Vitamin 1 ea PO DAILY 09/19/16 12/09/22 tablet) [id number]-[id number]-Ew-mprqt-nriy-boron 1 ea PO TID 09/28/16 12/09/22 600 mg-200 unit-40 mg-7.5 mg tablet coenzyme Q10 100 mg capsule 100 mg PO DAILY 04/08/18 12/09/22 (CoQ-10) omega-3 fatty acids 1,000 mg 1,000 mg PO BID 07/23/18 12/09/22 capsule (Super [place]-3) ascorbic acid (vitamin C) 1,000 mg 1,000 mg PO DAILY PRN ##2 10/22/18 12/09/22 tablet (Vitamin C) milk thistle seed extract 140 2 cap PO DIRECTED 07/10/19 12/04/22 mg-milk thistle 500 mg capsule aspirin 81 mg tablet,delayed 81 mg PO DAILY 02/02/21 12/09/22 release (Enteric Coated Aspirin) Lysine-L PO DAILY 02/08/21 12/04/22 liver detox PO QDAY PRN 02/08/21 10/06/22 compress.stocking,knee,reg,med #2 ea 07/05/21 12/04/22 omeprazole 20 mg capsule,delayed 20 mg PO DAILY #90 tab-caps 08/02/22 12/09/22 release propranolol 10 mg tablet 10 mg PO BID #180 tabs 08/02/22 12/09/22 spironolactone 50 mg tablet 50 mg PO DAILY #90 tab-caps 08/02/22 12/09/22 furosemide 40 mg tablet 40 mg PO DAILY #90 tabs 08/03/22 12/09/22 zinc 50 mg tablet 50 mg PO .QOD 08/03/22 12/09/22 efinaconazole 10 % topical See Rx Instructions .Route 11/01/22 12/09/22 solution with applicator (StackSocialblia) .COMPLEX #24 mL loratadine 10 mg tablet 10 mg PO DAILY PRN allergy 11/06/22 12/09/22 symptoms #90 tabs junaid.stocking,thigh,reg,med #2 ea 12/04/22 12/04/22 lactulose 10 gram/15 mL oral 10 g (15 mL) PO BID PRN ammonia 12/04/22 12/09/22 solution level #946 mL melatonin 3 mg capsule 3 - 6 mg PO HS PRN sleep #60 caps 12/04/22 12/04/22 Previous Rx's Medication Instructions Recorded compress.stocking,knee,reg,med #2 ea 07/05/21 omeprazole 20 mg capsule,delayed 20 mg PO DAILY #90 tab-caps 08/02/22 release propranolol 10 mg tablet 10 mg PO BID #180 tabs 08/02/22 spironolactone 50 mg tablet 50 mg PO DAILY #90 tab-caps 08/02/22 furosemide 40 mg tablet 40 mg PO DAILY #90 tabs 08/03/22 efinaconazole 10 % topical See Rx Instructions .Route 11/01/22 solution with applicator (Jublia) .COMPLEX #24 mL loratadine 10 mg tablet 10 mg PO DAILY PRN allergy 11/06/22 symptoms #90 tabs junaid.stocking,thigh,reg,med #2 ea 12/04/22 lactulose 10 gram/15 mL oral 10 g (15 mL) PO BID PRN ammonia 12/04/22 solution level #946 mL melatonin 3 mg capsule 3 - 6 mg PO HS PRN sleep #60 caps 12/04/22 Allergies Allergy/AdvReac Type Severity Reaction Status Date / Time ciprofloxacin Allergy Intermediate Itching Verified 12/09/22 20:33 General KILLIAN: 4 Review of Systems Narrative: Per HPI PFSH All Active Problems Tick bite with subsequent removal of tick (Acute) Displaced fracture of distal end of left radius (Acute 10/19/22) Anxiety and depression (Chronic 02/12/15) Arthritis (Acute 02/12/15) Ascites (Acute 01/07/13) noted on US. Tx with Aldactone and Lasix Esophageal varices (Acute 03/02/11) 09/15/21 UGI- small <5mm esophageal varice GERD (gastroesophageal reflux disease) (Acute 02/12/15) Gastric varices (Acute 09/02/13) Hypercoagulable state (Acute 03/02/11) Hematology [facility]; ASA for DVT prophylaxis due to hx variceal bleeding clotting disorder: Prolonged PT & PTT and mild hypofibrinogenemia which may be a consequence of underlying liver disease. No evidence for presence of common hereditary or acquired hematologic risk factors associated with arterial thromboembolism; DVT ; multiple (16) losses in 1st trimester Obesity (Chronic 02/15/15) Portal hypertension syndrome (Acute 03/16/15) esophageal varices, gastric varices, portal colopathy 02/18/18 Upper Gi Endoscopy at [facility] (Dr Hernandez)\ 09/15/21 UGI- [place] hypertensive gastropathy Splenomegaly (Acute 08/19/14) Herpes simplex virus (HSV) infection (Acute) Seasonal allergies (Chronic) Trigger finger of right hand (Acute) Ring Finger Varicose veins of both lower extremities (Chronic) Osteoarthritis of foot, right (Chronic 12/30/20) Venous insufficiency (chronic) (peripheral) (Acute 12/30/20) bilateral LE, compression stockings 30MM, Dr Clark Impaired fasting glucose (Chronic ~03/2022) Abnormal ultrasound of abdomen (Acute ~08/2022) Umbilical hernia (Acute ~09/2022) Medical History Cholelithiasis (08/19/14) Cryptogenic cirrhosis of liver No hx of heavy ETOH use. 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 Homa Hernandez-[facility] Impression: Small (<5mm) esophageal varices; Portal hyper tensive gastropathy; Type 2 gastroesophageal varcies (GOV2, esophageal varcies which extend along the fundus); Normal examined duodenum; No specimens collected. Endoscopy (12/06/12) Dr Mcdowell @ [facility] Endoscopy 09/02/2013, 09/03/2013,09/11/2013,04/02/2014 04/19/15 04/17/16-Dr Hernandez-[facility] 11/17/22-Dr Urbina [facility] Hx of endoscopy (~09/13/20) ,5 mm varices in lower 3rd of esophagus. extensive scarring from prior bandings. Moderate portal hypertensive gastropathy in stomach. Nl duodenum. Tonsillectomy 1975 Upper GI endoscopy w/ bx (11/28/16) Family History Mother Leukemia Father Essential hypertension Melanoma Brother Essential hypertension Maternal Grandmother Colon cancer Social History Smoking/Tobacco Use Status: Never Smoking risk assessment performed?: Yes Alcohol Intake: never Drug use: Never Substance use type: does not use Adopted: No Caregiver/Support person: No Foster care: No Household members: none Housing: apartment Number of Children: 0 Communication Needs: Corrective Lenses Education Level: college Do you need help understanding health information?: Rarely current occupation: Works for school - [employer] Pets and animals: No Sexually active: No Do you think of yourself as: straight/heterosexual Current gender identity: female What is your relationship status?: How often do you talk on the phone with friends or family?: three or more times per week How often do you get together with friends or relatives?: once per week How often do you attend nondenominational or uatsdin services?: 4 or more times per year Do you belong to any clubs or organized social groups?: no Panel score (0-1 are the most socially isolated patients): 2 What type of physical activity do you participate in: yoga Duration: 45-60 minutes/day Frequency: 1-2 times per week Joan/Sabianist: Rastafari Special joan needs: No Agree to transfusion: No Seatbelt use: always Helmet use: Yes Drive intox or ride w/intox customer service driver: No Working smoke detector in home: Yes Fire extinguisher in home: Yes Carbon monox detector in home: Yes Do you feel safe at home: Yes Do you feel safe in your relationship?: Yes Exam Narrative Exam Narrative: Const: WDWN female in NAD. HEENT: NC/AT. Dog tick embedded in the posterior scalp Eyes: Normal conjunctiva and sclera. Neck: Supple. Trachea midline. Lungs: Normal respiratory effort Neuro: A+O x 3. Normal speech, mentation, gait. Cranial nerves II - XII grossly intact. No gross motor or sensory deficit. Ext: No C/C/E. Skin: Warm and dry. Procedures Other Description: Embedded tick removed with use of tick blue. Tick removed in entirety and still alive post extraction.
[2022-12-09 20:31] VITALS: BP 118/57; PULSE 57; RESP 18; TEMP 36.6; O2SAT 98
== END 2022-12-09 20:50 | disposition home or self-care (01) ==
PROVIDERS: Emergency Provider Emergency Medicine; PCP Nurse Practitioner Adult Health
DX: S00.06XA Insect bite (nonvenomous) of scalp, initial encounter (principal); W57.XXXA Bitten or stung by nonvenomous insect and other nonvenomous arthropods, initial encounter
CPT/HCPCS: 99283

== ENCOUNTER 2022-12-18 12:32 | Emergency (ER) | payer MEDICARE, MEDICAID, SELFPAY ==
--- NOTE | 2022-12-18 12:30 | RT.EKG_ITS ---
APPROVED REPORT Exam: Resting ECG Reason for Exam: chest pain., sob Patient Location: E HR:64 bpm ECG Measurements Heart Rate 64 AXIS [place] 191 P 45 QRSd 86 QRS -7 QT 394 T 23 QTc 406 Conclusion Sinus rhythm...normal P axis, V-rate 60- 99 twave inv lead III
[2022-12-18 12:38] VITALS: BP 129/73; PULSE 71; RESP 22; TEMP 36.5; O2SAT 96
--- NOTE | 2022-12-18 13:00 | DI.CT_ITS ---
Exam(s) CT CHEST PE CTA EXAM: CT CHEST PE CTA CLINICAL HISTORY: left pleurtic CP, has had blood clot in past. TECHNIQUE: Imaging Protocol: Axial CT angiography was performed with multi-slice acquisition and mu lti-planar and/or 3D reconstructions. CONTRAST MATERIAL: Intravenous: Omnipaque 350 contrast volume:100 mL COMPARISON: CT CT ABDOMEN PELVIS W from 09/29/2022 FINDINGS: Tracheobronchial tree: Patent where visualized. Pulmonary parenchyma: There are small bilateral pleural effusions and subjacent infiltrates which may represent atelectasis or pneumonia, left greater than right. No architectural distortion. Pulmonary Arteries: No evidence of filling defect to suggest pulmonary emboli. Subsegmental pulmonary artery opacification is suboptimal. Mediastinum and Nieves: Mildly enlarged lymph nodes seen in the posterior mediastinum. No significant axillary or hilar adenopathy. The esophagus is unremarkable. Visualized thyroid gland: Unremarkable. Pleura: No pneumothorax. Heart: The heart is not dilated. No coronary artery calcifications are seen. No pericardial effusion. Aorta: Thoracic aorta non-dilated. Atherosclerosis is present. No evidence of dissection. Upper abdomen: Mild perihepatic ascites. Splenomegaly. Cholelithiasis. Soft tissues: Unremarkable. Bones: Within normal limits for the patient's age. IMPRESSION: 1. No evidence of pulmonary embolism, thoracic aortic dissection or aneurysm. 2. Small pleural effusions and bilateral subjacent infiltrates which may represent atelectasis or pne umonia. 3. There is again seen splenomegaly. There is a small amount of abdominal ascites. Cholelithiasis. 4. Findings were discussed with Dr. Hyde at 3:15 p.m. on 12/18/2022. RADIATION DOSE DELIVERED: 482.18mGy.cm Total DLP DATA REPOSITORY: All CT scans at this facility are submitted to the National Radiology Data Registry (NRDR) Dose Index Registry (DIR) with the [employer] (A[employer]). RADIATION OPTIMIZATION: All CT scans at this facility use at least one of these dose optimization te chniques: automated exposure control; mA and/or kV adjustment per patient size (includes targeted exa ms where dose is matched to clinical indication); or iterative reconstruction.
--- NOTE | 2022-12-18 13:14 | ED.GENADUL_ITS ---
Discharge Plan Disposition Patient Disposition: Home Condition: Stable Discharge Details Clinical Impression: Chest pain, Pleural effusion, bilateral Primary Care Provider: Yue Min ED Provider: Yasir Hyde Home Meds and New Rx's Prescriptions: Continued aspirin [Enteric Coated Aspirin] 81 mg tablet,delayed release (DR/EC) 81 mg PO DAILY Lysine-L PO DAILY Patient Comments: take 1 tablet lactulose 10 gram/15 mL solution 10 g PO BID PRN (Reason: ammonia level) Qty: 946 12RF melatonin 3 mg capsule 3 - 6 mg PO HS PRN (Reason: sleep) Qty: 60 1RF Patient Comments: not taking (DME) junaid.stocking,thigh,reg,med Misc See Dose Instructions .ROUTE .MEDSUPPLY Qty: 2 2RF Dose Instruction: As directed Rx Instructions: Apply in AM, remove in PM; omega-3 fatty acids [Super Morehouse-3] 1,000 mg capsule 1,000 mg PO BID zinc 50 mg tablet 50 mg PO .QOD (DME) compress.stocking,knee,reg,med Misc See Dose Instructions .ROUTE .MEDSUPPLY Qty: 2 3RF Dose Instruction: As directed Rx Instructions: Apply in AM, remove in PM furosemide 40 mg tablet 40 mg PO DAILY Qty: 90 3RF multivitamin [Daily Multi-Vitamin] 1 EACH tablet 1 ea PO DAILY folic acid 1 MG tablet 1 mg PO DAILY biotin 5 MG tablet 5 mg PO DAILY [id number]-wbx-gvzp-gvw-udpm-bor 1 EACH tablet 1 ea PO TID Rx Instructions: 500MG/250MG/200U [facility] [place]16 CGC coenzyme Q10 [CoQ-10] 100 mg capsule 100 mg PO DAILY Patient Comments: 04/08/18 Pt taking 200 mg daily. mk ascorbic acid (vitamin C) [Vitamin C] 1,000 mg tablet 1,000 mg PO DAILY PRNQty: 2 milk thist seed ext-milk thist 140-500 mg capsule 2 cap PO DIRECTED Patient Comments: not taking omeprazole 20 mg capsule,delayed release(DR/EC) 20 mg PO DAILY Qty: 90 3RF propranolol 10 mg tablet 10 mg PO BID Qty: 180 3RF spironolactone 50 mg tablet 50 mg PO DAILY Qty: 90 3RF Jublia 10 % solution with applicator See Rx Instructions .ROUTE .COMPLEX Qty: 24 1RF Dose Instruction: APPLY TOPICALLY TO THE AFFECTED AREA DAILY FOR 48 WEEKS Rx Instructions: APPLY TOPICALLY TO THE AFFECTED AREA DAILY FOR 48 WEEKS loratadine 10 mg tablet 10 mg PO DAILY PRN (Reason: allergy symptoms) Qty: 90 1RF No Action liver detox PO QDAY PRN Patient Comments: tea form Discharge Instructions Instructions: Chest Pain (ED), Pleural Effusion (ED) Additional Instructions: CT of your chest demonstrated the followin. No evidence of pulmonary embolism, thoracic aortic dissection or aneurysm.? 2. Small pleural effusions and bilateral subjacent infiltrates which may represent atelectasis or pneumonia. 3. There is again seen splenomegaly.? There is a small amount of abdominal ascites.? Cholelithiasis. Please be sure to discuss this with your doctor. Double your dose of furosemide from 40 mg to 80 mg today. Discussed ongoing dosing with ER primary care physician tomorrow. Please contact your primary care physician to arrange follow-up. Call today. Return to the ER immediately for any worsening or new concerning symptoms. Referrals: Yue Min NP [Primary Care Provider] - Medical Decision Making 1315??57-year-old female with multiple medical problems including history of prior hypercoagulable state, no longer anticoagulated, here with pleuritic left chest pain. Patient is hemodynamically stable. Patient saturating well in no respiratory distress. Consider acute pulmonary embolism. Plan to obtain CT of the chest. Considered ACS. Presentation is atypical. EKG was reviewed and interpreted by me: Please see report, sinus rhythm 64 bpm, T wave inversion noted lead III. I will check cardiac enzymes. Consider CHF given some dyspnea on exertion and will obtain BNP. 1542 -- CT of the chest interpreted by radiology: 1. No evidence of pulmonary embolism, thoracic aortic dissection or aneurysm.? 2. Small pleural effusions and bilateral subjacent infiltrates which may represent atelectasis or pneumonia. 3. There is again seen splenomegaly.? There is a small amount of abdominal ascites.? Cholelithiasis. 4. Findings were discussed with Dr. Hyde at 3:15 p.m. on 12/18/2022. I spoke with Dr. Bowen who notes enlarged liver, ascites and splenomegaly. Labs reviewed and nondiagnostic. Normal troponin. Would expect elevation at this point if this were cardiac etiology. Plan for discharge with outpatient follow- up. All results were discussed with patient. Patient notes that she has chronic ascites. Patient has had no recent cough or fever. Questions addressed. Usual customary discharge instructions were reviewed. I did recommend that she double her dose of diuretic today. Discussed ongoing treatment tomorrow with her PCP. Disposition decision was made weighing the risks and benefits of hospitalization versus outpatient treatment, the risk for further decompensation, and the patient's wishes. The patient was stable and requested discharge. Prior to discharge, my usual and customary return precautions were reviewed with the patient - this included follow-up instructions and reason to return to the emergency department if condition worsens, does not improve as expected, or other new concerns arise. HPI General Date/Time Provider Initiated Documentation: 12/18/22 12:39 . Limitations to Documentation: no limitations . Information obtained by: patient . HPI Narrative: 57-year-old female with multiple medical problems including history of hypercoagulable state DVT in the past, not currently on anticoagulation, here with chief complaint of chest pain. Patient notes 3 days of chest pain described as sharp and persistent. Pain is constant but worse when she takes a deep breath. Pain localized to left anterior lower chest and radiates into her upper chest when she takes a deep breath. She does note some associated dyspnea on exertion. No leg swelling. No calf pain. Related Data Home Medications Medication Instructions Recorded Confirmed biotin 5 mg tablet 5 mg PO DAILY 09/19/16 12/18/22 folic acid 1 mg tablet 1 mg PO DAILY 09/19/16 12/18/22 multivitamin (Daily Multi-Vitamin 1 ea PO DAILY 09/19/16 12/18/22 tablet) qjpsvhn-C1-wvj-Fs-ybdjs-tsfx-boron 1 ea PO TID 09/28/16 12/09/22 600 mg-200 unit-40 mg-7.5 mg tablet coenzyme Q10 100 mg capsule 100 mg PO DAILY 04/08/18 12/18/22 (CoQ-10) omega-3 fatty acids 1,000 mg 1,000 mg PO BID 07/23/18 12/18/22 capsule (Super Morehouse-3) ascorbic acid (vitamin C) 1,000 mg 1,000 mg PO DAILY PRN ##2 10/22/18 12/18/22 tablet (Vitamin C) milk thistle seed extract 140 2 cap PO DIRECTED 07/10/19 12/18/22 mg-milk thistle 500 mg capsule aspirin 81 mg tablet,delayed 81 mg PO DAILY 02/02/21 12/18/22 release (Enteric Coated Aspirin) Lysine-L PO DAILY 02/08/21 12/04/22 liver detox PO QDAY PRN 02/08/21 10/06/22 compress.stocking,knee,reg,med #2 ea 07/05/21 12/18/22 omeprazole 20 mg capsule,delayed 20 mg PO DAILY #90 tab-caps 08/02/22 12/18/22 release propranolol 10 mg tablet 10 mg PO BID #180 tabs 08/02/22 12/18/22 spironolactone 50 mg tablet 50 mg PO DAILY #90 tab-caps 08/02/22 12/18/22 furosemide 40 mg tablet 40 mg PO DAILY #90 tabs 08/03/22 12/18/22 zinc 50 mg tablet 50 mg PO .QOD 08/03/22 12/18/22 efinaconazole 10 % topical See Rx Instructions .Route 11/01/22 12/18/22 solution with applicator (Jublia) .COMPLEX #24 mL loratadine 10 mg tablet 10 mg PO DAILY PRN allergy 11/06/22 12/18/22 symptoms #90 tabs junaid.stocking,thigh,reg,med #2 ea 12/04/22 12/18/22 lactulose 10 gram/15 mL oral 10 g (15 mL) PO BID PRN ammonia 12/04/22 12/18/22 solution level #946 mL melatonin 3 mg capsule 3 - 6 mg PO HS PRN sleep #60 caps 12/04/22 12/18/22 Previous Rx's Medication Instructions Recorded compress.stocking,knee,reg,med #2 ea 07/05/21 omeprazole 20 mg capsule,delayed 20 mg PO DAILY #90 tab-caps 08/02/22 release propranolol 10 mg tablet 10 mg PO BID #180 tabs 08/02/22 spironolactone 50 mg tablet 50 mg PO DAILY #90 tab-caps 08/02/22 furosemide 40 mg tablet 40 mg PO DAILY #90 tabs 08/03/22 efinaconazole 10 % topical See Rx Instructions .Route 11/01/22 solution with applicator (Jublia) .COMPLEX #24 mL loratadine 10 mg tablet 10 mg PO DAILY PRN allergy 11/06/22 symptoms #90 tabs junaid.stocking,thigh,reg,med #2 ea 12/04/22 lactulose 10 gram/15 mL oral 10 g (15 mL) PO BID PRN ammonia 12/04/22 solution level #946 mL melatonin 3 mg capsule 3 - 6 mg PO HS PRN sleep #60 caps 12/04/22 Allergies Allergy/AdvReac Type Severity Reaction Status Date / Time ciprofloxacin Allergy Intermediate Itching Verified 12/09/22 20:33 General Stated Complaint: Chest Pain KILLIAN: 3 Review of Systems Constitutional Constitutional: Denies fever(s) Cardiovascular Cardiovascular: Reports as per HPI Respiratory Respiratory: Reports as per HPI PFSH All Active Problems (Updated 12/18/22 @ 15:32 by Yasir Hyde MD) Chest pain (Acute) Pleural effusion, bilateral (Acute) Tick bite with subsequent removal of tick (Acute) Displaced fracture of distal end of left radius (Acute 10/19/22) Anxiety and depression (Chronic 02/12/15) Arthritis (Acute 02/12/15) Ascites (Acute 01/07/13) noted on US. Tx with Aldactone and Lasix Esophageal varices (Acute 03/02/11) 09/15/21 UGI- small <5mm esophageal varice GERD (gastroesophageal reflux disease) (Acute 02/12/15) Gastric varices (Acute 09/02/13) Hypercoagulable state (Acute 03/02/11) Hemat[place] [facility] [place] ASA for DVT prophylaxis due to hx variceal bleeding clotting disorder: Prolonged PT & PTT and mild hypofibrinogenemia which may be a consequence of underlying liver disease. No evidence for presence of common hereditary or acquired hematologic risk factors associated with arterial thromboembolism; DVT ; multiple (16) losses in 1st trimester Obesity (Chronic 02/15/15) Portal hypertension syndrome (Acute 03/16/15) esophageal varices, gastric varices, portal colopathy 02/18/18 Upper Gi Endoscopy at [facility] [place] (Dr Hernandez)\ 09/15/21 UGI- [place] hypertensive gastropathy Splenomegaly (Acute 08/19/14) Herpes simplex virus (HSV) infection (Acute) Seasonal allergies (Chronic) Trigger finger of right hand (Acute) Ring Finger Varicose veins of both lower extremities (Chronic) Osteoarthritis of foot, right (Chronic 12/30/20) Venous insufficiency (chronic) (peripheral) (Acute 12/30/20) bilateral LE, compression stockings 30MM, Dr Clark Impaired fasting glucose (Chronic ~03/2022) Abnormal ultrasound of abdomen (Acute ~08/2022) Umbilical hernia (Acute ~09/2022) Medical History Cholelithiasis (08/19/14) Cryptogenic cirrhosis of liver No hx of heavy ETOH use. liver biopsy in [place] Deep vein thrombosis Family history of malignant melanoma HE (hepatic encephalopathy) (09/02/13) Lactulose Rifaximin Hypertension (02/12/15) Portal vein thrombosis (02/12/12) portal hypertension portal vein, SMV and splenic vein since 2006 and also noted on US 01/2012 Refusal of blood transfusions as patient is Holiness Sinus tarsi syndrome of both ankles (08/20/19) Podiatry/[place] Thrombosis of saphenous vein UGIB (upper gastrointestinal bleed) (09/02/12) Grade 1 EV and Type 2 GOV.Not a candidate for TIPS due to PV thrombus GOV= gastric varices PV thrombus = portal vein thrombus Surgical History Colonoscopy - MAC (~08/2013) Dr Jimmy Austin @[facility] Endoscopy EGD - IV Sedation (04/19/15) Dr. Homa Hernandez-[facility] [place] Impression: Small (<5mm) esophageal varices; Portal hyper tensive gastropathy; Type 2 gastroesophageal varcies (GOV2, esophageal varcies which extend along the fundus); Normal examined duodenum; No specimens collected. Endoscopy (12/06/12) Dr Mcdowell @ [facility] Endoscopy 09/02/2013, 09/03/2013,09/11/2013,04/02/2014 04/19/15 04/17/16-Dr Hernandez-[facility] [place] 11/17/22-Dr Urbina [facility] [place] Hx of endoscopy (~09/13/20) ,5 mm varices in lower 3rd of esophagus. extensive scarring from prior bandings. Moderate portal hypertensive gastropathy in stomach. Nl duodenum. Tonsillectomy 1976 Upper GI endoscopy w/ bx (11/28/16) Family History Mother Leukemia Father Essential hypertension Melanoma Brother Essential hypertension Maternal Grandmother Colon cancer Social History Smoking/Tobacco Use Status: Never Smoking risk assessment performed?: Yes Alcohol Intake: never Drug use: Never Substance use type: does not use Adopted: No Caregiver/Support person: No Foster care: No Household members: none Housing: apartment Number of Children: 0 Communication Needs: Corrective Lenses Education Level: college Do you need help understanding health information?: Rarely current occupation: Works for school - [employer] Pets and animals: No Sexually active: No Do you think of yourself as: straight/heterosexual Current gender identity: female What is your relationship status?: How often do you talk on the phone with friends or family?: three or more times per week How often do you get together with friends or relatives?: once per week How often do you attend congregational or adventist services?: 4 or more times per year Do you belong to any clubs or organized social groups?: no Panel score (0-1 are the most socially isolated patients): 2 What type of physical activity do you participate in: yoga Duration: 45-60 minutes/day Frequency: 1-2 times per week Joan/Baptist: Holiness Special joan needs: No Agree to transfusion: No Seatbelt use: always Helmet use: Yes Drive intox or ride w/intox courtesy bus driver: No Working smoke detector in home: Yes Fire extinguisher in home: Yes Carbon monox detector in home: Yes Do you feel safe at home: Yes Do you feel safe in your relationship?: Yes Exam Const General: cooperative and no acute distress HENMT Mouth: moist mucous membranes Eyes Conjunctivae: normal conjunctivae Sclera: normal sclerae Neck Neck: trachea midline and supple Resp Auscultation: clear to auscultation bilaterally, no rales, no rhonchi and no wheezes Cardio Rate: regular rate and not tachycardic Rhythm: regular rhythm GI Palpation: soft, not firm, no guarding, no masses, not rigid and nontender Skin General skin exam: no rashes or lesions noted Neuro General: patient alert, patient awake, patient oriented x3 and tone normal Extrem General: no calf tenderness and no edema Psych Appearance: grossly normal Mental Status: mental status grossly normal Speech and Movement: speech and movement normal Affect: anxious affect Course Vital Signs Vital signs: Vital Signs Temperature 36.5 C 12/18/22 12:38 Pulse 71 12/18/22 12:38 Respiratory Rate 22 12/18/22 12:38 Blood Pressure 129/73 12/18/22 12:38 Pulse Oximetry 96 12/18/22 12:38 Temperature 36.5 C 12/18/22 12:38 Temperature Source Oral 12/18/22 12:38 Pulse 71 12/18/22 12:38 Respiratory Rate 22 12/18/22 12:38 Blood Pressure 129/73 12/18/22 12:38 Blood Pressure Position Sitting 12/18/22 12:38 Pulse Oximetry 96 12/18/22 12:38 Oxygen Delivery Method Room Air 12/18/22 12:38 Oxygen Flow Rate 0 12/18/22 12:38
[2022-12-18 13:28] LABS: Abs Immature Grans 0.03 10^3/uL (0.0-0.06); Absolute Basophil Count 0.08 10^3/uL (0.0-0.2); Absolute Lymphocyte Count 1.09 10^3/uL (1.2-3.4); Absolute Monocyte Count 0.55 10^3/uL (0.1-0.8); Absolute Neutrophil Count 4.86 10^3/uL (1.2-6.7); Basophils % 1.2; Eosinophils % 2.9; HCT 40.2 % (36.0-46.0); HGB 12.8 g/dL (11.2-15.7); Immature Grans % 0.4; MCH 24.6 pg (27.0-33.0); MCHC 31.8 % (32.0-36.0); MCV 77 fL (80-95); Monocytes % 8.1; Neutrophils % 71.4; Platelet Count 489 10^3/uL (130-400); RBC 5.21 10^6/uL (3.93-5.22); RDW 18.4 % (11.7-14.6); RDW-SD 49.9 fL; WBC 6.81 10^3/uL (4.4-10.8)
[2022-12-18 13:56] LABS: ALT 35 U/L (14-59); AST 33 U/L (15-37); Albumin 3.5 g/dL (3.4-5.0); Alkaline Phosphatase 166 U/L (46-116); Anion Gap 10.2 mmol/L (3-11); BUN 11 mg/dL (7-18); CO2 23.8 mmol/L (21.0-32.0); CREATININE 0.7 mg/dL (0.55-1.02); Calcium 8.9 mg/dL (8.5-10.1); Chloride 107 mmol/L (98-107); Estimated GFR 100.81 (mL/min/1.73m2); Glucose 106 mg/dL (74-106); Magnesium 2.2 mg/dL (1.8-2.4); NT-proBNP 108 pg/mL (<300); Potassium 4.1 mmol/L (3.5-5.1); Sodium 141 mmol/L (136-145); Total Protein 7.5 g/dL (6.4-8.2); Troponin I < 50 ng/L (<or=60)
[2022-12-18] MEDS: Normal Saline - Diluent 50 ML VIAL IJ (14:19)
[2022-12-18] MEDS: Omnipaque 350 MG/ML 100 ML BTL IJ (14:20)
[2022-12-18] MEDS: Normal Saline Flush 10 ML SYR IVP (14:28)
== END 2022-12-18 16:10 | disposition home or self-care (01) ==
PROVIDERS: Emergency Provider Student in an Organized Health Care Education/Training Program; PCP Nurse Practitioner Adult Health
DX: R07.9 Chest pain, unspecified (principal); R06.02 Shortness of breath; J90 Pleural effusion, not elsewhere classified
CPT/HCPCS: 71275; 80053; 93005; 99285; 83735; 83880; 84484; 85025; 93010; 99284; J3490

== ENCOUNTER 2023-01-10 14:39 | Outpatient (CLI) | payer MEDICARE, MEDICAID, SELFPAY ==
--- NOTE | 2023-01-10 14:00 | DI.RAD_ITS ---
Exam(s) XR WRIST LT LIMITED EXAM: XR WRIST LT LIMITED INDICATION: left wrist f/u. COMPARISON: CR XR WRIST LT LIMITED from 11/29/2022 TECHNIQUE: 2D digital imaging was performed. Two views. FINDINGS: There has been no change in the alignment of the distal radial and ulnar styloid fractures which show slightly increased healing compared with previous exam. No new abnormalities. DATA REPOSITORY: RADIATION DOSE DELIVERED:
== END 2023-01-10 14:40 | disposition home or self-care (01) ==
LOC: DIORS 14:39
PROVIDERS: PCP Nurse Practitioner Adult Health; Referring Provider Nurse Practitioner Adult Health; Visit Provider Student in an Organized Health Care Education/Training Program
DX: S52.502D Unspecified fracture of the lower end of left radius, subsequent encounter for closed fracture with routine healing (principal); X58.XXXD Exposure to other specified factors, subsequent encounter
CPT/HCPCS: 73100

== ENCOUNTER → 2023-02-15 02:57 | Outpatient (CLI) | payer MEDICARE, MEDICAID, SELFPAY ==
--- NOTE | 2023-02-15 14:38 | DI.RAD_ITS ---
Exam(s) XR CHEST 2V PA LATERAL EXAM: XR CHEST 2V PA LATERAL CLINICAL HISTORY: interval F/U to ensure resolution lung infiltrate, bilat pleural effusion,. TECHNIQUE: 2D digital imaging was performed. COMPARISON: CR XR RIBS RT W PA LAT CHEST from 10/09/2022 FINDINGS: 2 views: Heart size is normal. The mediastinum is not widened. Lungs are clear. No infiltrates nor pleural effusions. IMPRESSION: No acute pulmonary findings. DATA REPOSITORY: RADIATION DOSE DELIVERED:
== END ==
PROVIDERS: PCP Nurse Practitioner Adult Health; Visit Provider Nurse Practitioner Adult Health
DX: J91.8 Pleural effusion in other conditions classified elsewhere
CPT/HCPCS: 71046

== ENCOUNTER → 2023-09-10 04:35 | Outpatient (CLI) | payer MEDICARE, SELFPAY ==
--- NOTE | 2023-09-10 13:12 | DI.MAMMO_ITS ---
Exam(s) MAMMO SCREENING EXAM: MAMMO SCREENING CLINICAL HISTORY: screening,z12.39. TECHNIQUE: Bilateral full field digital CC and MLO mammographic images were obtained with 3D tomosyn thesis and utilizing computer aided detection (CAD). COMPARISON: Prior mammograms were reviewed. FINDINGS: There has been no significant change in the appearance and distribution of the fibroglandular tissue. There are no CAD designations. There are no new spiculated masses nor malignant appearing microcalcification groups. There is no significant architectural distortion nor skin thickening-retraction. IMPRESSION: No radiographic evidence of malignancy. BI-RADS Category 1 - Negative Breast Density - Category B - Scattered areas of fibroglandular density Breast density Category C or D implies that the patient has dense breast tissue. Dense breast tissue can make it harder to find cancer on a mammogram. Dense breast tissue is also associated with an incr eased risk of breast cancer. This information about the result of the mammogram report was provided to the patient to raise their awareness. Use this report when you speak with the patient about their risks for breast cancer, which includes their family history. At that time, you may recommend additional screening tests (Ultrasoun d or MRI) as these tests may add significant information. A negative radiographic report should not delay biopsy if a dominant or clinically suspicious mass is present. Up to ten percent of cancers are not identified on mammography. A negative report may reinforce clinical impression. Adenosis and dense breasts may obscure an underlying neoplasm. False positive reports average 6 to 10%. Patient will receive a letter notifying them of these results.
== END ==
PROVIDERS: PCP Nurse Practitioner Adult Health; Visit Provider Nurse Practitioner Adult Health
DX: Z12.31 Encounter for screening mammogram for malignant neoplasm of breast (principal)
CPT/HCPCS: 77063; 77067

== ENCOUNTER 2023-11-09 02:40 | Outpatient (CLI) | payer MEDICARE, SELFPAY ==
[2023-11-09 15:23] LABS: HCT 42.5 % (36.0-46.0); HGB 12.9 g/dL (11.2-15.7); MCH 23.6 pg (27.0-33.0); MCHC 30.4 % (32.0-36.0); MCV 78 fL (80-95); MPV 10.7 fL (8.0-11.0); Platelet Count 538 10^3/uL (130-400); RBC 5.46 10^6/uL (3.93-5.22); RDW 17.9 % (11.7-14.6); WBC 6.97 10^3/uL (4.4-10.8)
[2023-11-09 15:38] LABS: Anion Gap 7.4 mmol/L (3-11); CO2 29.6 mmol/L (21.0-32.0); Chloride 105 mmol/L (98-107); Potassium 3.9 mmol/L (3.5-5.1); Sodium 142 mmol/L (136-145)
[2023-11-12 18:10] LABS: Lab Add On Test DONE
[2023-11-12 18:35] LABS: TSH (W/Ref FT4) 1.87 uIU/mL (0.36-3.74)
== END 2023-11-09 02:41 | disposition home or self-care (01) ==
LOC: LBO 02:40
PROVIDERS: PCP Nurse Practitioner Adult Health; Referring Provider Nurse Practitioner Adult Health; Visit Provider Nurse Practitioner Adult Health
DX: K62.5 Hemorrhage of anus and rectum (principal); R25.2 Cramp and spasm
CPT/HCPCS: 36415; 80051; 85027; 83735; 84443

== ENCOUNTER 2024-01-28 03:10 | Outpatient (CLI) | payer MEDICARE, SELFPAY ==
[2024-01-28 09:43] LABS: HCT 34.4 % (36.0-46.0); HGB 10.3 g/dL (11.2-15.7); MCH 22.4 pg (27.0-33.0); MCHC 29.9 % (32.0-36.0); MPV 10.7 fL (8.0-11.0); Platelet Count 456 10^3/uL (130-400); RDW 17.9 % (11.7-14.6); RDW-SD 47.6 fL; WBC 6.55 10^3/uL (4.4-10.8)
[2024-01-28 09:45] LABS: MCV 75 fL (80-95)
[2024-01-28 10:22] LABS: ALT 28 U/L (14-59); AST 25 U/L (15-37); Albumin 3.4 g/dL (3.4-5.0); Alkaline Phosphatase 171 U/L (46-116); Anion Gap 6.7 mmol/L (3-11); BUN 11 mg/dL (7-18); Bilirubin, Total 0.58 mg/dL (0.2-1.0); CO2 29.3 mmol/L (21.0-32.0); CREATININE 0.7 mg/dL (0.55-1.02); Calcium 8.8 mg/dL (8.5-10.1); Calculated LDL 112 mg/dL (<100); Chloride 103 mmol/L (98-107); Cholesterol 184 mg/dL (<200); Estimated GFR 100.19 (mL/min/1.73m2); Glucose 128 mg/dL (74-106); HDL Cholesterol 65 mg/dL (40-60); Potassium 3.7 mmol/L (3.5-5.1); Sodium 139 mmol/L (136-145); Triglyceride 35 mg/dL (<150)
[2024-01-28 10:47] LABS: Ferritin 8 ng/mL (8-252)
[2024-01-29 17:57] LABS: Hemoglobin A1C 6.2 % (<5.7)
== END 2024-01-28 03:11 | disposition home or self-care (01) ==
PROVIDERS: Absent Provider Nurse Practitioner Adult Health; PCP Nurse Practitioner Adult Health; Referring Provider Nurse Practitioner Adult Health; Visit Provider Nurse Practitioner Adult Health
DX: R73.01 Impaired fasting glucose (principal); E66.9 Obesity, unspecified; K76.6 Portal hypertension; D64.9 Anemia, unspecified; D50.9 Iron deficiency anemia, unspecified
CPT/HCPCS: 36415; 80053; 80061; 85027; 82728; 83036

== ENCOUNTER 2024-02-20 03:48 | Outpatient (CLI) | payer MEDICARE, SELFPAY ==
[2024-02-20 10:41] LABS: HCT 34.3 % (36.0-46.0); HGB 10.5 g/dL (11.2-15.7); MCH 22.2 pg (27.0-33.0); MCHC 30.6 % (32.0-36.0); MCV 72 fL (80-95); MPV 10.9 fL (8.0-11.0); Platelet Count 461 10^3/uL (130-400); RBC 4.74 10^6/uL (3.93-5.22); RDW 17.6 % (11.7-14.6); RDW-SD 45.8 fL; WBC 5.82 10^3/uL (4.4-10.8)
[2024-02-20 11:01] LABS: Iron 28 ug/dL (50-170); Total Iron Binding Capacity 437 ug/dL (250-450); Transferrin Sat 6 % (15-50)
[2024-02-20 11:15] LABS: Ferritin 8 ng/mL (8-252)
[2024-02-21 15:54] LABS: Transferrin 313 mg/dL (201-352)
== END 2024-02-20 03:49 | disposition home or self-care (01) ==
LOC: LBO 03:48
PROVIDERS: PCP Nurse Practitioner Adult Health; Referring Provider Nurse Practitioner Adult Health; Visit Provider Nurse Practitioner Adult Health
DX: D50.9 Iron deficiency anemia, unspecified (principal)
CPT/HCPCS: 36415; 85027; 82728; 83540; 83550; 84466

== ENCOUNTER 2024-03-05 02:18 | Outpatient (CLI) | payer MEDICARE, SELFPAY ==
--- NOTE | 2024-03-05 10:30 | DI.US_ITS ---
Exam(s) MG MAMMO DIAGNOSTIC UNI US BREAST RT COMPLETE EXAM: MG MAMMO DIAGNOSTIC UNI CLINICAL HISTORY: Rt breast pain N64.4. COMPARISON: 2014 through 2017 TECHNIQUE: Craniocaudal and mediolateral oblique Full Field Digital Mammography views of right with Computer Aided Diagnosis followed by Tomosynthesis and right breast ultrasound. FINDINGS: Mammography/Tomosynthesis: Masses/Architectural Distortion: None seen. Microcalcifications: No suspicious pleomorphic-type are seen. Skin Thickening/Nipple Retraction: None. Right breast US: Echotexture: Normal appearance of the glandular tissue. Shadowing: No suspicious foci. Cyst: None. Solid lesions: None seen. Ductal dilation: None. IMPRESSION: 1. No evidence of malignancy is noted. 2. Unless there is more urgent need, follow-up screening mammography is recommended, as per [place] [employer] guidelines. BI-RADS Category 1 - Negative Breast Density - Category B - Scattered areas of fibroglandular density A negative radiographic report should not delay biopsy if a dominant or clinically suspicious mass is present. Up to ten percent of cancers are not identified on mammography. A negative report may reinforce clinical impression. Adenosis and dense breasts may obscure an underlying neoplasm. False positive reports average 6 to 10%. Patient will receive a letter notifying them of these results.
== END 2024-03-05 02:38 ==
LOC: DI 02:18
PROVIDERS: PCP Nurse Practitioner Adult Health; Visit Provider Nurse Practitioner Family
DX: N64.4 Mastodynia (principal); Z12.31 Encounter for screening mammogram for malignant neoplasm of breast
CPT/HCPCS: 76642; 77061; 77065; G0279

== ENCOUNTER 2024-11-14 01:44 | Outpatient (CLI) | payer MEDICARE, MEDICAID, SELFPAY ==
[2024-11-14 09:07] LABS: Abs Immature Grans 0.03 10^3/uL (0.0-0.06); Absolute Basophil Count 0.08 10^3/uL (0.0-0.2); Absolute Eosinophil Count 0.16 10^3/uL (0.0-0.7); Absolute Lymphocyte Count 1.22 10^3/uL (1.2-3.4); Absolute Neutrophil Count 6.01 10^3/uL (1.2-6.7); HCT 45.4 % (36.0-46.0); HGB 14.4 g/dL (11.2-15.7); Immature Grans % 0.4 %; Lymphocytes % 15.1 %; MCH 26.6 pg (27.0-33.0); MCHC 31.7 % (32.0-36.0); MCV 84 fL (80-95); MPV 10.3 fL (8.0-11.0); Monocytes % 7.4 %; Neutrophils % 74.1 %; Platelet Count 396 10^3/uL (130-400); RBC 5.41 10^6/uL (3.93-5.22); RDW 19.3 % (11.7-14.6); RDW-SD 56.3 fL
[2024-11-14 09:43] LABS: Bilirubin Negative (Negative); Blood Trace-intact (Negative); Clarity Clear (Clear); Glucose Negative (Negative); Ketones Negative (Negative); Leukocyte Esterase Trace (Negative); Nitrite Negative (Negative); Specific Gravity 1.015 (1.005-1.025); Urobilinogen 0.2 mg/dL (Up to 0.2)
[2024-11-14 09:57] LABS: Bacteria Few HPF (Negative); C & S Indicated? No; Casts Negative LPF (Negative); Crystals Negative HPF (Negative); Epithelial Cells Rare HPF (Negative); Mucus Negative (Negative); RBC 0-2 HPF (0-2); WBC 0-2 HPF (0-5)
[2024-11-14 10:18] LABS: ALT 101 U/L (14-59); AST 103 U/L (15-37); Albumin 3.6 g/dL (3.4-5.0); Alkaline Phosphatase 366 U/L (46-116); Anion Gap 8.4 mmol/L (3-11); BUN 15 mg/dL (7-18); Bilirubin, Total 1.1 mg/dL (0.2-1.0); CO2 25.6 mmol/L (21.0-32.0); CREATININE 0.6 mg/dL (0.55-1.02); Calcium 9.3 mg/dL (8.5-10.1); Calculated LDL 127 mg/dL (<100); Chloride 103 mmol/L (98-107); Cholesterol 203 mg/dL (<200); Estimated GFR 103.33 (mL/min/1.73m2); Glucose 111 mg/dL (74-106); HDL Cholesterol 67 mg/dL (>or=50); Potassium 4.1 mmol/L (3.5-5.1); Sodium 137 mmol/L (136-145); TSH 2.86 uIU/mL (0.36-3.74); Total Protein 7.6 g/dL (6.4-8.2); Triglyceride 49 mg/dL (<150)
== END 2024-11-14 01:45 | disposition home or self-care (01) ==
LOC: LBO 01:44
PROVIDERS: PCP Nurse Practitioner Adult Health; Visit Provider Family Medicine
DX: I10 Essential (primary) hypertension (principal); E78.5 Hyperlipidemia, unspecified; Z13.9 Encounter for screening, unspecified; D64.9 Anemia, unspecified; R73.03 Prediabetes
CPT/HCPCS: 36415; 80053; 80061; 81003; 81015; 83036; 84443; 85025

== ENCOUNTER → 2025-04-09 13:57 | Outpatient (BNVA) | payer MEDICARE, MEDICAID, SELFPAY | PROVIDERS: PCP Nurse Practitioner Adult Health; Referring Provider Nurse Practitioner Adult Health; Visit Provider Surgery ==